=== PATIENT | female | born 1935 | race Caucasian/White ===

== ENCOUNTER → 2016-09-29 | Outpatient (CLI) | payer OTHER ==
--- NOTE | 2016-09-29 16:24 | DX ---
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 Findings: The femoral head and acetabular component remain excellently positioned and normally locate d. The long femoral shaft component remains in excellent position without evidence for loosening. Impression: Stable excellent alignment x2 months.
== END ==
LOC: BMCIMAGING 14:23
PROVIDERS: ATTEND Physician Assistant
DX: Z09 Encounter for follow-up examination after completed treatment for conditions other than malignant neoplasm (principal); Z96.641 Presence of right artificial hip joint

== ENCOUNTER → 2016-10-14 | Outpatient (CLI) | payer OTHER ==
--- NOTE | 2016-10-14 15:45 | US ---
Bilateral Duplex/Doppler Carotid Sonography History: Palpable pulsatile mass in the left neck. Technique: The cervical portions of the carotid and vertebral arteries were imaged and interrogated by color and pulsed Duplex/Doppler. Spectral analysis was performed. Comparison: None available. Findings: The patient's palpable mass corresponds to the proximal left ICA, which is superficial, wi th no visible aneurysm. Right Carotid: Right CCA peak systolic velocity = 48 cm/sec. Right ECA peak systolic velocity = 74 cm/sec. Right ICA peak systolic velocity = 75 cm/sec. Right ICA/CCA systolic velocity ratio = 1.6. Velocities correlate to less than 50 % diameter stenosis of the origin of the right internal carotid artery with respect to the normal distal internal carotid artery. There is minimal calcified plaque involving the right carotid bulb and proximal right internal carotid artery. Left Carotid: Left CCA peak systolic velocity = 61 cm/sec. Left ECA peak systolic velocity = 89 cm/sec. Left ICA peak systolic velocity = 85 cm/sec. Left ICA/CCA systolic velocity ratio = 1.4. Velocities correlate to less than 50 % diameter stenosis of the origin of the left internal carotid a rtery with respect to the normal distal internal carotid artery. There is minimal calcified plaque i nvolving the left carotid bulb and proximal left internal carotid artery. Vertebral Arteries: Antegrade flow is shown by pulsed Doppler of each vertebral artery. Impression: 1. Palpable pulsatile mass corresponds to a normal-appearing superficial internal carotid artery. 2. No hemodynamically significant stenosis by systolic velocity criteria. Measurement of carotid stenosis is based on velocity parameters that correlate the residual internal carotid diameter with [place] Symptomatic Carotid Endarterectomy Trial (NASCET) based stenosis levels.
== END ==
LOC: FIMAGING 12:58
PROVIDERS: ATTEND Family Medicine
DX: R22.1 Localized swelling, mass and lump, neck (principal)

== ENCOUNTER → 2017-01-26 | Outpatient (CLI) | payer OTHER | LOC: BMCIMAGING 14:12 | PROVIDERS: ATTEND Family Medicine | DX: M25.562 Pain in left knee (principal) ==

== ENCOUNTER 2017-03-03 12:38 | Emergency (ER) | payer OTHER ==
[2017-03-03 12:44] VITALS: TEMP 98.1
--- NOTE | 2017-03-03 13:16 | EDPHY ---
H & P Stated Complaint: L sided pain s/p trip & fall Source: Patient, Family Exam Limitations: No limitations - Personal History Current Tetanus/Diphtheria Vaccine: Unsure Current Tetanus Diphtheria and Acellular Pertussis (TDAP): Unsure - Medical/Surgical History Hx Asthma: No Hx Chronic Respiratory Disease: Yes Hx Diabetes: No Hx Cardiac Disease: No Hx Renal Disease: No Hx Cirrhosis: No Hx Alcoholism: No Hx HIV/AIDS: No Hx Splenectomy or Spleen Trauma: No Other PMH: copd, stent, cad, htn, dvt - Social History Smoking Status: Light smoker HPI/ROS: CHIEF COMPLAINT: Fall, left-sided rib pain HISTORY OF PRESENT ILLNESS: Patient was walking last night around 10:00 p.m. when she tripped and fell. She landed on the left side of her ribs on her Oxymizer. She felt a sudden onset of pain in the left mid axillary line of the ribs. She said that she hurt her right ankle but this has resolved. The pain in the ribs is mild to moderate. It is constant. It is worse with inspiration and palpation. No chest pain. No shortness of breath. She has been coughing, but she does have COPD. She uses oxygen at night and intermittently throughout the day. She has no abdominal pain. No injuries to the arms. The right ankle pain is resolved. She has no back pain at any location. REVIEW OF SYSTEMS: Ten systems reviewed and are negative unless otherwise noted in the HPI PAST MEDICAL HISTORY: COPD, CAD with stents, Plavix use SOCIAL HISTORY: Previous smoker FAMILY HISTORY: Noncontributory EXAMINATION General Appearance: Alert, no distress Head: normocephalic, atraumatic. No Barrientos sign. No raccoon eyes. No outward sign of trauma Eyes: Pupils equal and round, no conjunctival pallor or injection ENT, Mouth: Mucous membranes moist. Uvula midline. Airway widely patent. Neck: Normal inspection, supple, no bony tenderness. Mild left-sided trapezius tenderness. Trachea midline. No step-off, crepitus or deformity Respiratory: Mild rhonchi. No crackles. No diminishment. No consolidation. No retractions or distress Cardiovascular: Regular rate and rhythm. Pulses intact distally symmetrically Gastrointestinal: Abdomen is soft and nontender. No distension or tympany. No rigidity. No CVA tenderness. Back: Kyphotic appearance. No bony tenderness of the thoracic or lumbar spine. No step-off, crepitus or deformity Neurological: GCS 15. A&O, nonfocal, normal gait. Strength is symmetric in all 4 limbs. Skin: Warm and dry. Hematoma over the left mid axillary line between ribs 5 through 9. Extremities: Tender to palpation of the left mid axillary ribs. There is no tenderness of the extremities. Range of motion of the arms and legs are symmetric. Psychiatric: Mood and affect normal DIFFERENTIAL DIAGNOSES: Including but not limited to hematoma, rib fracture, hemothorax, pneumothorax, sprain, strain, intracranial hemorrhage, skull fracture, cervical strain MDM: 1:15 p.m. Mechanical fall with left-sided hematoma and rib pain. Due to patient's age and Plavix, I have ordered CT scan 3:15 p.m. I have re-evaluated the patient. She is resting comfortably. CT scans have been performed but not yet interpreted radiologist.. By my interpretation, there are no acute findings on CT scan of the head or chest. Awaiting radiologist's interpretation at this time. 4:10 p.m. Notified by radiologist Dr. Bower. CT scan of the chest reveals nondisplaced acute fractures of ribs 5 and 6 on the left. No pneumothorax. No hemothorax. Incidental note of worsening ground-glass opacity appearance of the bases of bilateral lungs. CT scans of the head and neck reveal no acute findings. There are chronic changes as noted. I discussed all the above with the patient. I made her aware of the change in the ground-glass opacities of the lung. She is aware of the previous incidence of this and will follow up with primary care physician. We discussed pulmonary toilet treated with incentive spirometer, deep breaths hourly, light activity and close follow-up. She is to follow up with primary care physician in 48 hours or here if unable to do so. Return sooner for any fever, difficulty breathing, shortness of breath, cough or worsening pain. I discussed the case with Dr. Ochoa, and she is in agreement with this plan. The patient be discharged home stable condition. SUPERVISION: This patient was independently evaluated without direct examination by the attending physician. Case was discussed with attending physician. Case discussed with Dr. Ochoa (Luis Ho) Constitutional: Initial Vital Signs Temperature (C) 36.7 C 03/03/17 12:41 Heart Rate 88 03/03/17 12:41 Respiratory Rate 16 03/03/17 12:41 Blood Pressure 167/92 H 03/03/17 12:41 O2 Sat (%) 90 L 03/03/17 12:41 O2 Delivery Mode Room Air O2 (L/minute) 2 Allergies/Adverse Reactions: levofloxacin [From Levaquin] Allergy (Unknown, Verified 07/26/13 19:00) Unknown atorvastatin calcium [From Lipitor] Allergy (Verified 01/18/15 14:38) Home Medications: Medication Instructions Recorded Clopidogrel Bisulfate [Plavix (*)] 75 mg PO Q2D 11/28/11 LORazepam [Ativan (*)] 0.5 mg PO HS 03/28/13 Pravastatin Sodium [Pravachol] 40 mg PO HS 06/01/13 Sennosides [Senokot] 2 tab PO Q2D 06/01/13 Tiotropium Inhaler [Spiriva 1 cap IH HS 06/01/13 Inhaler (RX)] Verapamil ER [[place] SR/ER 180MG 180 mg PO HS 06/01/13 (*)] Albuterol [Proventil Inhaler HFA 2 puffs IH TID PRN 01/14/15 (*)] Calcium Carb W/Vit D [Calcium Carb 500 mg PO BID 01/14/15 W/Vit D 500/200 (*)] Fluticasone Nasal [Flonase Nasal 1 sprays EACHNARE DAILY PRN 01/14/15 [place]] Mometasone 220Mcg Inhaler [Asmanex 2 puffs IH BID 01/14/15 Inh (*)] Albuterol 5 mg/ml INH [Proventil] 2.5 mg IH QID PRN 07/06/16 Aspirin [Aspirin 325 mg (*)] 325 mg PO DAILY 07/06/16 Docusate Sodium [Colace 100 MG (*)] 100 mg PO BID 07/06/16 Zolpidem Tartrate [Ambien 10 mg] 5 mg PO HS 07/06/16 Aspirin [Aspirin 325 mg (*)] 325 mg PO DAILY #0 tab 07/07/16 oxyCODONE IR [Oxycodone Ir (*)] 5 - 10 mg PO Q3HRS PRN #70 tab 07/07/16 Hydrocodone/APAP 5/325 [[place] 1 - 2 tab PO Q4H PRN #10 tab 03/03/17 5/325 (*)] Medical Decision Making Other Provider: The patient was evaluated and managed by the physician department assistant. I have reviewed this chart and I agree with the findings and plan of care as documented , as indicated by my signature. I am the secondary supervising physician. ( Gladys Ochoa) - Data Points Laboratory Results: Laboratory Results 03/03/17 14:10 Medications Given: Discontinued Medications Hydrocodone Bitart/Acetaminophen ([place] 5/325) 1 tab PO EDNOW ONE Stop: 03/03/17 16:05 Last Admin: 03/03/17 16:23 Dose: 1 tab Albuterol (Proventil Neb) 3 ml IH EDNOW ONE Stop: 03/03/17 14:55 Last Admin: 03/03/17 14:55 Dose: 3 ml Fentanyl (Sublimaze) 25 mcg IVP EDNOW ONE Stop: 03/03/17 14:22 Last Admin: 03/03/17 14:22 Dose: 25 mcg Sodium Chloride (Ns) 500 mls @ 1,000 mls/hr IV ONCE ONE PRN Reason: Protocol Stop: 03/03/17 14:25 Last Admin: 03/03/17 14:22 Dose: 500 mls Departure - Departure Disposition: Home, Routine, Self-Care Clinical Impression: Left rib fracture, Ground glass opacity present on imaging of lung Condition: Good Instructions: How to Use an Incentive Spirometer (ED), Rib Fracture (ED) Additional Instructions: 1. Follow up with primary care physician in 48 hours. If unable to do so return to the emergency department for re-evaluation 2. Pain medication as prescribed as needed for the left rib pain 3. Continue pulmonary toilet with incentive spirometer at home as discussed every hour 4. Return here for any worsening pain, fever, chills, cough or difficulty taking a deep breath 5. Follow up primary care physician regarding the incidental finding on year CT scan of the chest that we have discussed Referrals: River Lee MD [Primary Care Provider] - As per Instructions Mingo Balderas MD [Medical Doctor] - As per Instructions Prescriptions: Hydrocodone/APAP 5/325 [[place] 5/325 (*)] 1 - 2 tab PO Q4H PRN #10 tab PRN Reason: Pain, Moderate
[2017-03-03] MEDS ORDERED: IOPAMIDOL (ISOVUE-300) 100 ML BTL ONE ×2 (13:20→13:30)
[2017-03-03] MEDS ORDERED: NS 500 ML IV ONE (13:56)
[2017-03-03 14:01] LABS: INR 0.94 (0.83-1.16); PROTIME(PATIENT) 12.5 SEC (12.0-15.0)
[2017-03-03] MEDS ORDERED: fentaNYL 100 MCG/2 ML INJ ONE (14:13)
[2017-03-03] MEDS ORDERED: fentaNYL 100 MCG/2 ML INJ IVP ONE (14:21)
[2017-03-03 14:22] LABS: CK-MB INTERPRETATION NEGATIVE (NEGATIVE); CREATINE KINASE-MB FRACTION 1.32 ng/mL (0-3.19)
[2017-03-03 14:22] LABS: % IMMATURE GRANULYOCYTES 0.5 % (0.0-1.1); ABSOLUTE IMMATURE GRANULOCYTES 0.05 10^3/uL (0.00-0.10); ADD DIFF? NO; ADD MORPH? NO; ADD SCAN? NO; ATYPICAL LYMPHOCYTE FLAG 0 (0-99); FRAGMENT RBC FLAG 0 (0-99); HEMATOCRIT 42.9 % (38.0-47.0); HEMOGLOBIN 14.2 g/dL (12.6-16.3); LEFT SHIFT FLG 0 (0-99); LIPEMIA HEMOLYSIS FLAG 80 (0-99); MEAN CELL HEMOGLOBIN 30.5 pg (27.9-34.1); MEAN CELL HEMOGLOBIN CONCENTR. 33.1 g/dL (32.4-36.7); MEAN CELL VOLUME 92.3 fL (81.5-99.8); MEAN PLATELET VOLUME 10.2 fL (8.7-11.7); PLATELET CLUMPS FLAG 30 (0-99); PLATELET COUNT 257 10^3/uL (150-400); RED BLOOD CELL COUNT 4.65 10^6/uL (4.18-5.33)
[2017-03-03] MEDS ORDERED: ALBUTEROL 3 ML DEYVIAL ONE (14:48)
[2017-03-03] MEDS ORDERED: ALBUTEROL 3 ML DEYVIAL IH ONE (14:54)
[2017-03-03] MEDS ORDERED: HYDROCODONE/APAP 5/325 TAB PO ONE (16:04)
[2017-03-03 16:25] VITALS: BP 173/88; PULSE 85; RESP 16; O2SAT 93
== END 2017-03-03 16:33 | disposition home or self-care (01) ==
DX: S22.42XA Multiple fractures of ribs, left side, initial encounter for closed fracture (principal); I10 Essential (primary) hypertension; J44.9 Chronic obstructive pulmonary disease, unspecified; I25.10 Atherosclerotic heart disease of native coronary artery without angina pectoris; F17.200 Nicotine dependence, unspecified, uncomplicated; R91.8 Other nonspecific abnormal finding of lung field; Z95.5 Presence of coronary angioplasty implant and graft; Z79.82 Long term (current) use of aspirin; W01.0XXA Fall on same level from slipping, tripping and stumbling without subsequent striking against object, initial encounter
CPT/HCPCS: 70450; 71260; 72125; 96361; 96374; 99285; J3010; Q9967; 82947-QW

== ENCOUNTER 2017-04-06 17:20 | Emergency (ER) | payer OTHER ==
[2017-04-06 17:38] VITALS: TEMP 98.6
[2017-04-06] MEDS ORDERED: IPRATROPIUM/ALBUTEROL 3 ML DEYVIAL IH ONE ×2 (17:47→17:49)
--- NOTE | 2017-04-06 18:00 | EDPHY ---
H & P Stated Complaint: DIFFICULTY BREATHING Time Seen by Provider: 04/06/17 18:00 - Personal History Current Tetanus/Diphtheria Vaccine: Unsure - Medical/Surgical History Hx Asthma: No Hx Chronic Respiratory Disease: Yes Hx Diabetes: No Hx Cardiac Disease: No Hx Renal Disease: No Hx Cirrhosis: No Hx Alcoholism: No Hx HIV/AIDS: No Hx Splenectomy or Spleen Trauma: No Other PMH: copd, stent, cad, htn, dvt - Social History Smoking Status: Light smoker Constitutional: Initial Vital Signs Temperature (C) 37 C 04/06/17 17:35 Heart Rate 89 04/06/17 17:35 Respiratory Rate 20 04/06/17 17:35 Blood Pressure 184/94 H 04/06/17 17:35 O2 Sat (%) 87 L 04/06/17 17:35 O2 Delivery Mode Room Air Allergies/Adverse Reactions: levofloxacin [From Levaquin] Allergy (Unknown, Verified 04/06/17 17:39) Unknown atorvastatin calcium [From Lipitor] Allergy (Verified 04/06/17 17:39) Home Medications: Medication Instructions Recorded Clopidogrel Bisulfate [Plavix (*)] 75 mg PO Q2D 11/28/11 LORazepam [Ativan (*)] 0.5 mg PO HS 03/28/13 Pravastatin Sodium [Pravachol] 40 mg PO HS 06/01/13 Sennosides [Senokot] 2 tab PO Q2D 06/01/13 Tiotropium Inhaler [Spiriva 1 cap IH 06/01/13 Inhaler (RX)] Verapamil ER [[place] SR/ER 180MG 180 mg PO HS 06/01/13 (*)] Albuterol [Proventil Inhaler HFA 2 puffs IH TID PRN 01/14/15 (*)] Calcium Carb W/Vit D [Calcium Carb 500 mg PO BID 01/14/15 W/Vit D 500/200 (*)] Fluticasone Nasal [Flonase Nasal 1 sprays [place] DAILY PRN 01/14/15 [place]] Mometasone 220Mcg Inhaler [Asmanex 2 puffs IH BID 01/14/15 Inh (*)] Albuterol 5 mg/ml INH [Proventil] 2.5 mg IH QID PRN 07/06/16 Aspirin [Aspirin 325 mg (*)] 325 mg PO DAILY 07/06/16 Docusate Sodium [Colace 100 MG (*)] 100 mg PO BID 07/06/16 Zolpidem Tartrate [Ambien 10 mg] 5 mg PO HS 07/06/16 Aspirin [Aspirin 325 mg (*)] 325 mg PO DAILY #0 tab 07/07/16 oxyCODONE IR [Oxycodone Ir (*)] 5 - 10 mg PO Q3HRS PRN #70 tab 07/07/16 Hydrocodone/APAP 5/325 [[place] 1 - 2 tab PO Q4H PRN #10 tab 03/03/17 5/325 (*)] AZITHROMYCIN [Z-PACK] 250 mg PO DAILY #1 packet 04/06/17 Medical Decision Making - Diagnostics Imaging Results: Imaging Impressions Chest X-Ray 04/06/17 17:50 Impression: 1. Mild peribronchial cuffing in the perihilar region bilaterally similar to prior CT study. This can be seen with bronchitis, viral process, or reactive airways disease. 2. Ankylosis thoracic spine. Imaging: I viewed and interpreted images myself ED Course/Re-evaluation: CHIEF COMPLAINT: Shortness of breath HISTORY OF PRESENT ILLNESS: The patient is an 81 y/o female with history of COPD, who presents with worsening shortness of breath for the past 3 weeks. She was in the ED on 03/03/17 for a fall, and was diagnosed with several left rib fractures. She feels congested in her lungs and has a cough that does not improve with a nebulizer treatment. She normally only uses oxygen at night, but required it recently during the day. She has noticed mild pedal edema, which is abnormal for her. Denies chest pain, vomiting, abdominal pain, and paresthesias. REVIEW OF SYSTEMS: A 10 point review of systems was performed and is negative with the exception of the elements mentioned in the history of present illness. PHYSICAL EXAM: HR, BP hypertensive 184/94, O2 Sat 87% on room air, RR. Temp noted General Appearance: Alert, well hydrated, appropriate, and non-toxic appearing. Head: Atraumatic without scalp tenderness or obvious injury Eyes: Pupils equal, round, reactive to light and accommodation, EOMI, no trauma , no injection. Ears: Clear bilaterally, no perforation, normal landmarks Nose: Atraumatic, no rhinorrhea, clear. Throat: Mucus membranes moist. Neck: Supple, nontender, no lymphadenopathy. Respiratory: Coarse rhonchi, decreased breath sounds in the left base, shallow breathing. No retractions, no distress, no wheezes, and no accessory muscle use. Cardiovascular: Regular rate and rhythm, no murmurs, rubs, or gallops. Good capillary refill all extremities. Gastrointestinal: Abdomen is soft, nontender, non-distended, no masses, no rebound, no guarding, no peritoneal signs. Musculoskeletal: Normal active ROM of all extremities, atraumatic. Neurological: Alert, appropriate, and interactive. Non-focal neuro Skin: Mild cellulitis on right lower leg and mild bilateral pedal edema. Good turgor, no nodules on palpation. Past medical history: COPD, CAD, Plavix use Past surgical history: Cardiac stents Family history: Noncontributory Social history: Previous smoker, lives in [place], retired Reviewed prior ED report from 03/03/17 DIAGNOSTICS/PROCEDURES/CRITICAL CARE TIME: EKG: The 12 lead EKG was interpreted by myself, sinus rhythm with a LVH, rate 84. See hard copy and/or "tracemaster" electronic copy for interpretation. Chest X-ray: COPD changes DIFFERENTIAL DIAGNOSIS: The differential diagnosis for the patient's shortness of breath and hypoxemia included but was not limited to pneumonia, myocardial infarction, acute mountain sickness, high altitude pulmonary edema, congestive heart failure, and pulmonary embolus. MEDICAL DECISION MAKING: The patient is an 81 y/o female who presents with dyspnea following a fall three weeks ago. She has coarse rhonchi and decreased breath sounds in the left base. She also has mild cellulites on her right lower leg and mild bilateral pedal edema. Plan for EKG, chest X-ray, and labs to rule out pneumonia. Duo neb administered. Reassessed patient and discussed work up findings. Chest x-ray consistent with COPD. Plan to treat with z-pack and 10mg IV Decadron. Recommended follow up with her tare worker tomorrow. Return precautions given. She is comfortable with this plan. - Data Points Laboratory Results: Laboratory Results 04/06/17 18:00 04/06/17 18:00 04/06/17 04/06/17 04/06/17 18:00 18:00 18:00 WBC RBC Hgb Hct MCV MCH MCHC RDW Plt Count MPV Neut % (Auto) Lymph % (Auto) [place] % (Auto) Eos % (Auto) Baso % (Auto) Nucleat RBC Rel Count Absolute Neuts (auto) Absolute Lymphs (auto) Absolute Monos (auto) Absolute Eos (auto) Absolute Basos (auto) Absolute Nucleated RBC Immature Gran % Immature Gran # PT 12.8 SEC SEC (12.0-15.0) INR 0.97 (0.83-1.16) APTT 23.4 SEC SEC (23.0-38.0) VBG Lactic Acid 1.3 mmol/L mmol/L (0.7-2.1) Sodium 142 mEq/L mEq/L (134-144) Potassium 4.7 mEq/L mEq/L (3.5-5.2) Chloride 106 mEq/L mEq/L (97-110) Carbon Dioxide 26 mEq/l mEq/l (22-31) Anion Gap 10 mEq/L mEq/L (8-16) BUN 8 mg/dL mg/dL (7-23) Creatinine 0.6 mg/dL mg/dL (0.6-1.0) Estimated GFR > 60 Glucose 86 mg/dL mg/dL (70-100) Calcium 9.7 mg/dL mg/dL (8.5-10.4) Total Bilirubin 0.4 mg/dL mg/dL (0.1-1.4) Troponin I < 0.012 ng/mL ng/mL (0-0.034) NT-Pro-B Natriuret Pep 168 pg/mL pg/mL (0-450) 04/06/17 18:00 WBC 8.34 10^3/uL 10^3/uL (3.80-9.50) RBC 4.56 10^6/uL 10^6/uL (4.18-5.33) Hgb 13.8 g/dL g/dL (12.6-16.3) Hct 42.7 % % (38.0-47.0) MCV 93.6 fL fL (81.5-99.8) MCH 30.3 pg pg (27.9-34.1) MCHC 32.3 g/dL L g/dL (32.4-36.7) RDW 13.6 % % (11.5-15.2) Plt Count 249 10^3/uL 10^3/uL (150-400) MPV 9.9 fL fL (8.7-11.7) Neut % (Auto) 53.5 % % (39.3-74.2) Lymph % (Auto) 29.1 % % (15.0-45.0) [place] % (Auto) 7.6 % % (4.5-13.0) Eos % (Auto) 8.4 % H % (0.6-7.6) Baso % (Auto) 1.3 % % (0.3-1.7) Nucleat RBC Rel Count 0.0 % % (0.0-0.2) Absolute Neuts (auto) 4.46 10^3/uL 10^3/uL (1.70-6.50) Absolute Lymphs (auto) 2.43 10^3/uL 10^3/uL (1.00-3.00) Absolute Monos (auto) 0.63 10^3/uL 10^3/uL (0.30-0.80) Absolute Eos (auto) 0.70 10^3/uL H 10^3/uL (0.03-0.40) Absolute Basos (auto) 0.11 10^3/uL H 10^3/uL (0.02-0.10) Absolute Nucleated RBC 0.00 10^3/uL 10^3/uL (0-0.01) Immature Gran % 0.1 % % (0.0-1.1) Immature Gran # 0.01 10^3/uL 10^3/uL (0.00-0.10) PT INR APTT VBG Lactic Acid Sodium Potassium Chloride Carbon Dioxide Anion Gap BUN Creatinine Estimated GFR Glucose Calcium Total Bilirubin Troponin I NT-Pro-B Natriuret Pep Medications Given: Discontinued Medications Albuterol/Ipratropium (Duoneb) 3 ml IH EDNOW ONE Stop: 04/06/17 17:48 Last Admin: 04/06/17 17:53 Dose: 3 ml Albuterol/Ipratropium (Duoneb) 3 ml IH EDNOW ONE Stop: 04/06/17 17:50 Last Admin: 04/06/17 17:53 Dose: Not Given Azithromycin (Zithromax) 500 mg PO EDNOW ONE PRN Reason: Protocol Stop: 04/06/17 19:21 Last Admin: 04/06/17 19:32 Dose: 500 mg Dexamethasone (Decadron Injection) 10 mg IVP EDNOW ONE Stop: 04/06/17 19:21 Last Admin: 04/06/17 19:32 Dose: 10 mg Departure - Departure Clinical Impression: COPD exacerbation Instructions: COPD (Chronic Obstructive Pulmonary Disease) (ED) Additional Instructions: 1. Take Z-pack as prescribed. Be sure to complete entire prescription. 2. Follow up with your tare worker tomorrow without fail. 3. Return for any worsening of condition. Referrals: River Lee MD [Primary Care Provider] - As per Instructions Prescriptions: AZITHROMYCIN [Z-PACK] 250 mg PO DAILY #1 packet Report Scribed for: Aaron Jauregui Report Scribed by: Zaida Morales Date of Report: 04/06/17 Time of Report: 18:02
[2017-04-06 18:08] LABS: % IMMATURE GRANULYOCYTES 0.1 % (0.0-1.1); ABSOLUTE IMMATURE GRANULOCYTES 0.01 10^3/uL (0.00-0.10); ADD DIFF? NO; ADD MORPH? NO; ADD SCAN? NO; ATYPICAL LYMPHOCYTE FLAG 0 (0-99); FRAGMENT RBC FLAG 0 (0-99); HEMATOCRIT 42.7 % (38.0-47.0); HEMOGLOBIN 13.8 g/dL (12.6-16.3); LEFT SHIFT FLG 0 (0-99); LIPEMIA HEMOLYSIS FLAG 80 (0-99); MEAN CELL HEMOGLOBIN 30.3 pg (27.9-34.1); MEAN CELL HEMOGLOBIN CONCENTR. 32.3 g/dL (32.4-36.7); MEAN CELL VOLUME 93.6 fL (81.5-99.8); MEAN PLATELET VOLUME 9.9 fL (8.7-11.7); PLATELET CLUMPS FLAG 0 (0-99); PLATELET COUNT 249 10^3/uL (150-400); RED BLOOD CELL COUNT 4.56 10^6/uL (4.18-5.33); RED CELL DISTRIBUTION WIDTH 13.6 % (11.5-15.2)
--- NOTE | 2017-04-06 18:08 | CPEKG ---
Heart Rate: 84 RR Interval: 714 P-R Interval: 148 QRSD Interval: 74 QT Interval: 384 QTC Interval: 454 P Waldo: 60 QRS Waldo: 24 T Wave Waldo: 59 EKG Severity - ABNORMAL ECG - EKG Impression: SINUS RHYTHM EKG Impression: CONSIDER LEFT VENTRICULAR HYPERTROPHY Electronically Signed By: Aaron Jauregui 06-Apr-2017 20:59:28
[2017-04-06 18:31] LABS: APTT 23.4 SEC (23.0-38.0); INR 0.97 (0.83-1.16); PROTIME(PATIENT) 12.8 SEC (12.0-15.0)
[2017-04-06 18:37] LABS: ANION GAP 10 mEq/L (8-16); BILIRUBIN,TOTAL 0.4 mg/dL (0.1-1.4); CALCIUM 9.7 mg/dL (8.5-10.4); CARBON DIOXIDE 26 mEq/l (22-31); CHLORIDE 106 mEq/L (97-110); CREATININE 0.6 mg/dL (0.6-1.0); GLOMERULAR FILTRATION RATE > 60; GLUCOSE 86 mg/dL (70-100); POTASSIUM 4.7 mEq/L (3.5-5.2); SODIUM 142 mEq/L (134-144)
[2017-04-06 19:20] LABS: TROPONIN I < 0.012 ng/mL (0-0.034)
[2017-04-06] MEDS ORDERED: AZITHROMYCIN 250 MG TAB PO ONE (19:20)
[2017-04-06] MEDS ORDERED: DEXAMETHASONE 10 MG/ML VIAL IVP ONE (19:20)
[2017-04-06 19:44] VITALS: BP 170/76; PULSE 94; RESP 18; O2SAT 92
== END 2017-04-06 19:43 | disposition home or self-care (01) ==
DX: J44.1 Chronic obstructive pulmonary disease with (acute) exacerbation (principal); I10 Essential (primary) hypertension; I25.10 Atherosclerotic heart disease of native coronary artery without angina pectoris; F17.200 Nicotine dependence, unspecified, uncomplicated; Z79.82 Long term (current) use of aspirin
CPT/HCPCS: 71020; 93005; 96374; 99285; J1100

== ENCOUNTER 2017-06-07 16:02 | Inpatient (IN) | payer OTHER ==
--- NOTE | 2017-06-07 16:22 | EDPHY ---
H & P Stated Complaint: sob worse x 4 days, L leg swelling x 2 weeks HPI/ROS: HPI CHIEF COMPLAINT: Shortness of breath HISTORY OF PRESENT ILLNESS: This patient very pleasant 81-year-old female significant past medical history for COPD on oxygen at night 2 L. None during the day. History of tobacco use and currently uses half pack per day. Patient presents to the emergency room the worsening shortness of breath. She states approximately 2-3 months ago she broke her ribs. She since ever since then she has had worsening shortness of breath. However patient reports that over the past week shortness of breath progressively gotten worse. She has PND. Additionally using 2 more pillows to sit upright to sleep at night. Additionally dyspnea on exertion. She states that when she walks she gets short of breath very easily. Get her breath. Cough with clear sputum. Endorses chills. Subjective fever. Denies nausea vomiting or chest pain. Denies abdominal pain. Additionally she reports bilateral lower extremity swelling. When the left than right. Her left leg is never this swollen. It is tender and has significant edema. She has had a history of DVT. Past Medical History: COPD, history of coronary artery disease with stent, hypertension, remote history community-acquired pneumonia, DVT Past Surgical History: No recent surgery Social History: Denies daily use of alcohol drugs. Smokes tobacco daily. Half pack per day. Family History: Noncontributory. ROS REVIEW OF SYSTEMS: A comprehensive 10 point review of systems is otherwise negative aside from elements mentioned in the history of present illness. Exam Constitutional appears nontoxic, triage nursing summary reviewed, vital signs reviewed, awake/alert. Vital signs noted 87% room air sat. Eyes normal conjunctivae and sclera, EOMI, PERRLA. HENT normal inspection, atraumatic, moist mucus membranes, no epistaxis, neck supple/ no meningismus, no raccoon eyes. Respiratory the decreased breath sounds bilaterally, crackles bilaterally, faint wheezing bilaterally, Cardiovascular rate normal, regular rhythm, no murmur, no edema, distal pulses normal. Gastrointestinal soft, non-tender, no rebound, no guarding, normal bowel sounds, no distension, no pulsatile mass. Genitourinary no CVA tenderness. Musculoskeletal no midline vertebral tenderness, full range of motion, no calf swelling, no tenderness of extremities, no meningismus, good pulses, neurovascularly intact. Skin pink, warm, & dry, no rash, skin atraumatic. Neurologic awake, alert and oriented x 3, AAOx3, moves all 4 extremities equally, motor intact, sensory intact, CN II-XII intact, normal cerebellar, normal vision, normal speech. Psychiatric normal mood/affect. Heme/Lymph/Immune no lymphadenopathy. Differential Diagnosis: Includes but is not limited to in a particular order CHF, acute decompensated heart failure, COPD exacerbation, pneumonia, pulmonary embolism, DVT, failure, renal failure Medical Decision Making: Plan for this patient IV established full industrial court magistrate, check troponin, BNP, EKG, chest x-ray, D-dimer, ultrasound left lower extremity, DuoNeb breathing treatment re-evaluation Re-evaluation: ED x-ray chest one view reviewed. This shows haziness bilateral lower lobes, additionally there is opacification of the left lower lobe that appears to be wedged shaped. 1733: This patient has a positive D-dimer. In the setting of shortness of breath and hypoxia and lower extremity swelling I will proceed with CT angiogram PE protocol study to evaluate for PE. Additionally this will help visualize her lung parenchyma. ED ultrasound of the left lower extremity shows a posterior tibial DVT. Similar to the ultrasound in 2014. No proximal DVT. 1849: This patient will be admitted for hypoxia, dyspnea on exertion, dyspnea, mucous plugging. Most likely COPD exacerbation. This patient has been given a DuoNeb breathing treatment, IV Solu-Medrol. Spoke with the hospitalist service Dr. Bryson for admission. Source: Patient - Personal History Current Tetanus/Diphtheria Vaccine: Unsure Current Tetanus Diphtheria and Acellular Pertussis (TDAP): Unsure - Medical/Surgical History Hx Asthma: No Hx Chronic Respiratory Disease: Yes Hx Diabetes: No Hx Cardiac Disease: No Hx Renal Disease: No Hx Cirrhosis: No Hx Alcoholism: No Hx HIV/AIDS: No Hx Splenectomy or Spleen Trauma: No Other PMH: copd, stent, cad, htn, dvt - Social History Smoking Status: Light smoker Constitutional: Initial Vital Signs Temperature (C) 37.0 C 06/07/17 16:09 Heart Rate 99 06/07/17 16:09 Respiratory Rate 20 06/07/17 16:09 Blood Pressure 184/87 H 06/07/17 16:09 O2 Sat (%) 87 L 06/07/17 16:09 O2 Delivery Mode Nasal Cannula O2 (L/minute) 2 Allergies/Adverse Reactions: levofloxacin [From Levaquin] Allergy (Unknown, Verified 04/06/17 17:39) Unknown atorvastatin calcium [From Lipitor] Allergy (Verified 04/06/17 17:39) Home Medications: Medication Instructions Recorded Clopidogrel Bisulfate [Plavix (*)] 75 mg PO Q2D 11/28/11 LORazepam [Ativan (*)] 0.5 mg PO HS 03/28/13 Pravastatin Sodium [Pravachol] 40 mg PO HS 06/01/13 Sennosides [Senokot] 2 tab PO Q2D 06/01/13 Tiotropium Inhaler [Spiriva 1 cap IH HS 06/01/13 Inhaler (RX)] Verapamil ER [[place]an SR/ER 180MG 180 mg PO HS 06/01/13 (*)] Albuterol [Proventil Inhaler HFA 2 puffs IH TID PRN 01/14/15 (*)] Calcium Carb W/Vit D [Calcium Carb 500 mg PO BID 01/14/15 W/Vit D 500/200 (*)] Fluticasone Nasal [Flonase Nasal 1 sprays EACHNARE DAILY PRN 01/14/15 [place]] Mometasone 220Mcg Inhaler [Asmanex 2 puffs IH BID 01/14/15 Inh (*)] Albuterol 5 mg/ml INH [Proventil] 2.5 mg IH QID PRN 07/06/16 Aspirin [Aspirin 325 mg (*)] 325 mg PO DAILY 07/06/16 Docusate Sodium [Colace 100 MG (*)] 100 mg PO BID 07/06/16 Zolpidem Tartrate [Ambien 10 mg] 5 mg PO HS 07/06/16 Aspirin [Aspirin 325 mg (*)] 325 mg PO DAILY #0 tab 07/07/16 oxyCODONE IR [Oxycodone Ir (*)] 5 - 10 mg PO Q3HRS PRN #70 tab 07/07/16 Hydrocodone/APAP 5/325 [[place] 1 - 2 tab PO Q4H PRN #10 tab 03/03/17 5/325 (*)] AZITHROMYCIN [Z-PACK] 250 mg PO DAILY #1 packet 04/06/17 Medical Decision Making - Diagnostics Imaging Results: Imaging Impressions Chest X-Ray 06/07/17 16:36 Impression: 1. No acute change since 3 months prior. 2. Cardiomegaly and airways disease unchanged. Extremity Venous Study 06/07/17 16:37 Impression: Partial thrombus posterior tibial veins in the calf. No other findings more proximal for deep venous thrombosis. Stable benign-appearing lymph node left groin. Results called and discussed with Dr. Alexander Hernandez on June 07, 2017 at 17: 45 hours Chest/Thorax CTA 06/07/17 17:33 Impression: 1. No evidence of pulmonary thromboembolic disease. 2. Bibasilar segmental mucous plugging. No pneumonia or significant atelectasis. 3. Indeterminate ground-glass nodules in bilateral lower lobes, potentially representing early bronchoalveolar carcinoma, are unchanged. Recommend continued surveillance with follow-up noncontrast chest CT in 12 months. 4. Centrilobular emphysema and ankylosing spondylitis unchanged. Findings discussed with Emergency Department physician, Alexander Hernandez M.D., on June 07, 2017 at 1827. - Data Points Laboratory Results: Laboratory Results 06/07/17 16:50 06/07/17 16:50 06/07/17 06/07/17 06/07/17 16:50 16:50 16:50 WBC 8.25 10^3/uL 10^3/uL (3.80-9.50) RBC 4.74 10^6/uL 10^6/uL (4.18-5.33) Hgb 14.3 g/dL g/dL (12.6-16.3) Hct 43.8 % % (38.0-47.0) MCV 92.4 fL fL (81.5-99.8) MCH 30.2 pg pg (27.9-34.1) MCHC 32.6 g/dL g/dL (32.4-36.7) RDW 13.6 % % (11.5-15.2) Plt Count 251 10^3/uL 10^3/uL (150-400) MPV 10.3 fL fL (8.7-11.7) Neut % (Auto) 60.5 % % (39.3-74.2) Lymph % (Auto) 24.6 % % (15.0-45.0) [place] % (Auto) 7.2 % % (4.5-13.0) Eos % (Auto) 6.3 % % (0.6-7.6) Baso % (Auto) 1.2 % % (0.3-1.7) Nucleat RBC Rel Count 0.0 % % (0.0-0.2) Absolute Neuts (auto) 4.99 10^3/uL 10^3/uL (1.70-6.50) Absolute Lymphs (auto) 2.03 10^3/uL 10^3/uL (1.00-3.00) Absolute Monos (auto) 0.59 10^3/uL 10^3/uL (0.30-0.80) Absolute Eos (auto) 0.52 10^3/uL H 10^3/uL (0.03-0.40) Absolute Basos (auto) 0.10 10^3/uL 10^3/uL (0.02-0.10) Absolute Nucleated RBC 0.00 10^3/uL 10^3/uL (0-0.01) Immature Gran % 0.2 % % (0.0-1.1) Immature Gran # 0.02 10^3/uL 10^3/uL (0.00-0.10) PT 12.5 SEC SEC (12.0-15.0) INR 0.94 (0.83-1.16) APTT 25.5 SEC SEC (23.0-38.0) D-Dimer 1.16 ug/mLFEU H ug/mLFEU (0.00-0.50) Sodium 139 mEq/L mEq/L (134-144) Potassium 4.1 mEq/L mEq/L (3.5-5.2) Chloride 103 mEq/L mEq/L (97-110) Carbon Dioxide 25 mEq/l mEq/l (22-31) Anion Gap 11 mEq/L mEq/L (8-16) BUN 10 mg/dL mg/dL (7-23) Creatinine 0.6 mg/dL mg/dL (0.6-1.0) Estimated GFR > 60 Glucose 95 mg/dL mg/dL (70-100) Calcium 9.4 mg/dL mg/dL (8.5-10.4) Magnesium 2.0 mg/dL mg/dL (1.6-2.3) Total Bilirubin 0.4 mg/dL mg/dL (0.1-1.4) Conjugated Bilirubin 0.3 mg/dL mg/dL (0.0-0.5) Unconjugated Bilirubin 0.1 mg/dL mg/dL (0.0-1.1) AST 19 IU/L IU/L (14-46) ALT 31 IU/L IU/L (9-52) Alkaline Phosphatase 87 IU/L IU/L (38-126) Creatine Kinase 99 IU/L IU/L (0-156) CK-MB (CK-2) Fraction 1.71 ng/mL ng/mL (0.00-3.19) Troponin I < 0.012 ng/mL ng/mL (0.000-0.034) NT-Pro-B Natriuret Pep 247 pg/mL pg/mL (0-450) Total Protein 6.5 g/dL g/dL (6.3-8.2) Albumin 4.0 g/dL g/dL (3.5-5.0) Lipase 40 IU/L IU/L (23-300) Medications Given: Discontinued Medications Albuterol/Ipratropium (Duoneb) 3 ml IH EDNOW ONE Stop: 06/07/17 16:41 Last Admin: 06/07/17 17:28 Dose: 3 ml Sodium Chloride (Ns) 500 mls @ 0 mls/hr IV ONCE ONE PRN Reason: Wide Open Stop: 06/07/17 17:35 Last Admin: 06/07/17 17:43 Dose: 500 mls Departure - Departure Disposition: [facility] Inpatient Acute Clinical Impression: Hypoxia COPD (chronic obstructive pulmonary disease) Qualifiers: COPD type: unspecified COPD Qualified Code(s): J44.9 - Chronic obstructive pulmonary disease, unspecified Pneumonia Qualifiers: Pneumonia type: due to unspecified organism Laterality: unspecified laterality Lung location: lower lobe of lung Qualified Code(s): J18.1 - Lobar pneumonia, unspecified organism DVT (deep venous thrombosis) Qualifiers: DVT location: lower extremity Affected thrombotic vein of extremity: unspecified lower extremity distal vein Chronicity: acute Laterality: left Qualified Code(s): I82.4Z2 - Acute embolism and thrombosis of unspecified deep veins of left distal lower extremity Condition: Fair Referrals: River Lee MD [Primary Care Provider] - As per Instructions
[2017-06-07] MEDS ORDERED: IPRATROPIUM/ALBUTEROL 3 ML DEYVIAL IH ONE (16:40)
--- NOTE | 2017-06-07 16:46 | CPEKG ---
Heart Rate: 87 RR Interval: 690 P-R Interval: 148 QRSD Interval: 68 QT Interval: 392 QTC Interval: 472 P [place]: 69 QRS [place]: 32 T Wave [place]: 70 EKG Severity - ABNORMAL ECG - EKG Impression: SINUS RHYTHM EKG Impression: CONSIDER LEFT VENTRICULAR HYPERTROPHY Electronically Signed By: Jailene Chew 07-Jun-2017 19:42:31
[2017-06-07 16:58] LABS: % IMMATURE GRANULYOCYTES 0.2 % (0.0-1.1); ABSOLUTE IMMATURE GRANULOCYTES 0.02 10^3/uL (0.00-0.10); ADD DIFF? NO; ADD MORPH? NO; ADD SCAN? NO; ATYPICAL LYMPHOCYTE FLAG 0 (0-99); FRAGMENT RBC FLAG 0 (0-99); HEMATOCRIT 43.8 % (38.0-47.0); HEMOGLOBIN 14.3 g/dL (12.6-16.3); LEFT SHIFT FLG 0 (0-99); LIPEMIA HEMOLYSIS FLAG 80 (0-99); MEAN CELL HEMOGLOBIN 30.2 pg (27.9-34.1); MEAN CELL HEMOGLOBIN CONCENTR. 32.6 g/dL (32.4-36.7); MEAN CELL VOLUME 92.4 fL (81.5-99.8); MEAN PLATELET VOLUME 10.3 fL (8.7-11.7); PLATELET CLUMPS FLAG 0 (0-99); PLATELET COUNT 251 10^3/uL (150-400); RED BLOOD CELL COUNT 4.74 10^6/uL (4.18-5.33); RED CELL DISTRIBUTION WIDTH 13.6 % (11.5-15.2)
[2017-06-07 17:10] LABS: INR 0.94 (0.83-1.16); PROTIME(PATIENT) 12.5 SEC (12.0-15.0)
[2017-06-07 17:11] LABS: APTT 25.5 SEC (23.0-38.0)
[2017-06-07 17:14] LABS: ALANINE AMINOTRANSFERASE 31 IU/L (9-52); ALKALINE PHOSPHATASE 87 IU/L (38-126); ANION GAP 11 mEq/L (8-16); ASPARTATE AMINOTRANSFERASE 19 IU/L (14-46); BILIRUBIN,TOTAL 0.4 mg/dL (0.1-1.4); BILIRUBIN-CONJUGATED 0.3 mg/dL (0.0-0.5); BILIRUBIN-UNCONJUGATED 0.1 mg/dL (0.0-1.1); CALCIUM 9.4 mg/dL (8.5-10.4); CARBON DIOXIDE 25 mEq/l (22-31); CHLORIDE 103 mEq/L (97-110); CREATININE 0.6 mg/dL (0.6-1.0); GLOMERULAR FILTRATION RATE > 60; GLUCOSE 95 mg/dL (70-100); POTASSIUM 4.1 mEq/L (3.5-5.2); SODIUM 139 mEq/L (134-144); TOTAL PROTEIN 6.5 g/dL (6.3-8.2)
[2017-06-07 17:26] LABS: CREATINE KINASE-MB FRACTION 1.71 ng/mL (0.00-3.19); TROPONIN I < 0.012 ng/mL (0.000-0.034)
[2017-06-07] MEDS ORDERED: NS 500 ML IV ONE (17:34)
[2017-06-07] MEDS ORDERED: IOPAMIDOL (ISOVUE 370) 100 ML BTL IV ONE (17:49)
[2017-06-07] MEDS ORDERED: methylPREDNISolone SOD SUCC 125 MG/2 ML VIAL IVP ONE (18:48)
[2017-06-07] MEDS ORDERED: NICOTINE POLACRILEX 2 MG GUM B PRN (18:56)
[2017-06-07] MEDS ORDERED: ONDANSETRON 4 MG/2 ML VIAL IVP PRN (18:56)
[2017-06-07] MEDS ORDERED: ONDANSETRON DISINTEGRATING 4 MG TAB PO PRN (18:56)
[2017-06-07] MEDS ORDERED: SENNOSIDES 1 TAB PO PRN (21:18)
[2017-06-07] MEDS ORDERED: FLUTICASONE NASAL 120 SPRAYS/16 GM MDI EACHNARE PRN (21:18)
[2017-06-07] MEDS ORDERED: LORazepam 0.5 MG TAB PO PRN (21:18)
[2017-06-07] MEDS ORDERED: DOCUSATE SODIUM 100 MG CAP PO PRN (21:18)
--- NOTE | 2017-06-07 21:25 | PDGENHP ---
History and Physical - Chief Complaint Acute shortness of breath - History of Present Illness Primary care provider: Dr. River Lee HPI: 81-year-old female presenting with acute shortness of breath characterized as difficulty taking a deep breath with associated paroxysmal nocturnal dyspnea lower extremity edema, onset of symptoms several days prior and duration progressively worsening thereafter. She reports that the shortness of breath is alleviated when she is sitting upright, and is exacerbated when she is ambulating. She has otherwise been using her home albuterol inhaler very regularly, and is compliant with her Spiriva and inhaled steroid. She has otherwise been taking all of her home medications and denies any fever chills nausea vomiting or diarrhea. She does endorse some associated sore throat but this has been relatively mild. History Information - Allergies/Home Medication List Allergies/Adverse Reactions: levofloxacin [From Levaquin] Allergy (Unknown, Verified 04/06/17 17:39) Unknown atorvastatin calcium [From Lipitor] Allergy (Verified 04/06/17 17:39) Home Medications: Clopidogrel Bisulfate [Plavix (*)] 75 mg PO Q2D@2200 11/28/11 [Last Taken 22:00] LORazepam [Ativan (*)] 0.5 mg PO HS PRN 03/28/13 [Last Taken 05/08/17] Pravastatin Sodium [Pravachol] 40 mg PO 06/01/13 [Last Taken 06/06/17 22:00] Sennosides [Senokot] 2 tab PO Q2D PRN 06/01/13 [Last Taken 06/03/17] Tiotropium Inhaler [Spiriva Inhaler (RX)] 1 cap IH 06/01/13 [Last Taken 05/17 22:00] Verapamil ER [Calan SR/ER 180MG (*)] 180 mg PO 06/01/13 [Last Taken 06/06/17 22:00] Albuterol [Proventil Inhaler HFA (*)] 2 puffs IH TID PRN 01/14/15 [Last Taken 10:00] Fluticasone Nasal [Flonase Nasal [place]] 1 sprays EACHNARE DAILY PRN 01/14/15 [ Last Taken 06/04/17] Mometasone 220Mcg Inhaler [Asmanex Inh (*)] 2 puffs IH BID 01/14/15 [Last Taken 05/31/17] Albuterol 5 mg/ml INH [Proventil] 2.5 mg IH QID PRN 07/06/16 [Last Taken 14:00] Aspirin [Aspirin 325 mg (*)] 325 mg PO DAILY PRN 07/06/16 [Last Taken 07/05/16] Docusate Sodium [Colace 100 MG (*)] 100 mg PO DAILY PRN 07/06/16 [Last Taken ] oxyCODONE HCL/ACETAMINOPHEN [Percocet 5-325 mg Tablet] 1 each PO HS 06/07/17 [ Last Taken 06/06/17 22:00] I have personally reviewed and updated: family history, medical history, social history, surgical history - Past Medical History Additional medical history: Coronary artery disease with stent placement. Deep venous thrombosis. COPD. Hypertension. Congestive heart failure. Nocturnal supplemental oxygen - Surgical History Additional surgical history: Cardiac stent. Appendectomy - Family History Additional family history: No history of venous thromboembolism, no family history of chronic diseases - Social History Smoking Status: Light smoker Alcohol Use: None Drug Use: None Additional social history: Lives with son, originally from [facility] Review of Systems Review of Systems: ROS: 10pt was reviewed & negative except for what was stated in HPI & below Cardiac: Reports: edema Respiratory: Reports: cough, shortness of breath Physical Exam Physical Exam: Temp Pulse Resp BP Pulse Ox 36.4 C 95 20 158/89 H 94 06/07/17 20:35 06/07/17 20:35 06/07/17 20:35 06/07/17 20:35 06/07/17 20:35 O2 (L/minute) 2 Constitutional: no apparent distress, not in pain, chronically ill appearing, No uncomfortable Eyes: PERRL, anicteric sclera, EOMI Ears, Nose, Mouth, Throat: moist mucous membranes, hearing normal, ears appear normal, no oral mucosal ulcers Cardiovascular: systolic murmur (1/6 at right sternal border, distant heart sounds), edema (1+ bilateral lower extremity), No irregularly irregular, No tachycardia Respiratory: reduced air movement (On expiration bilaterally), expiratory wheeze , bronchial breath sounds, No inspiratory crackles, No respiratory distress Gastrointestinal: normoactive bowel sounds, soft, non-tender abdomen, no palpable masses Skin: warm, normal color, no rashes or abrasions, no fluctuance, no induration, No mottled Neurologic: AAOx3, sensation intact bilaterally, No weakness (Motor strength 5/ 5 bilateral lower extremity), No facial droop Psychiatric: interacting appropriately, not anxious, not encephalopathic, thought process linear Lab Data & Imaging Review 06/07/17 16:50 06/07/17 16:50 WBC 8.25 10^3/uL (3.80-9.50) 06/07/17 16:50 RBC 4.74 10^6/uL (4.18-5.33) 06/07/17 16:50 Hgb 14.3 g/dL (12.6-16.3) 06/07/17 16:50 Hct 43.8 % (38.0-47.0) 06/07/17 16:50 MCV 92.4 fL (81.5-99.8) 06/07/17 16:50 MCH 30.2 pg (27.9-34.1) 06/07/17 16:50 MCHC 32.6 g/dL (32.4-36.7) 06/07/17 16:50 RDW 13.6 % (11.5-15.2) 06/07/17 16:50 Plt Count 251 10^3/uL (150-400) 06/07/17 16:50 MPV 10.3 fL (8.7-11.7) 06/07/17 16:50 Neut % (Auto) 60.5 % (39.3-74.2) 06/07/17 16:50 Lymph % (Auto) 24.6 % (15.0-45.0) 06/07/17 16:50 [place] % (Auto) 7.2 % (4.5-13.0) 06/07/17 16:50 Eos % (Auto) 6.3 % (0.6-7.6) 06/07/17 16:50 Baso % (Auto) 1.2 % (0.3-1.7) 06/07/17 16:50 Nucleat RBC Rel Count 0.0 % (0.0-0.2) 06/07/17 16:50 Absolute Neuts (auto) 4.99 10^3/uL (1.70-6.50) 06/07/17 16:50 Absolute Lymphs (auto) 2.03 10^3/uL (1.00-3.00) 06/07/17 16:50 Absolute Monos (auto) 0.59 10^3/uL (0.30-0.80) 06/07/17 16:50 Absolute Eos (auto) 0.52 10^3/uL (0.03-0.40) H 06/07/17 16:50 Absolute Basos (auto) 0.10 10^3/uL (0.02-0.10) 06/07/17 16:50 Absolute Nucleated RBC 0.00 10^3/uL (0-0.01) 06/07/17 16:50 Immature Gran % 0.2 % (0.0-1.1) 06/07/17 16:50 Immature Gran # 0.02 10^3/uL (0.00-0.10) 06/07/17 16:50 PT 12.5 SEC (12.0-15.0) 06/07/17 16:50 INR 0.94 (0.83-1.16) 06/07/17 16:50 APTT 25.5 SEC (23.0-38.0) 06/07/17 16:50 D-Dimer 1.16 ug/mLFEU (0.00-0.50) H 06/07/17 16:50 Sodium 139 mEq/L (134-144) 06/07/17 16:50 Potassium 4.1 mEq/L (3.5-5.2) 06/07/17 16:50 Chloride 103 mEq/L (97-110) 06/07/17 16:50 Carbon Dioxide 25 mEq/l (22-31) 06/07/17 16:50 Anion Gap 11 mEq/L (8-16) 06/07/17 16:50 BUN 10 mg/dL (7-23) 06/07/17 16:50 Creatinine 0.6 mg/dL (0.6-1.0) 06/07/17 16:50 Estimated GFR > 60 06/07/17 16:50 Glucose 95 mg/dL (70-100) 06/07/17 16:50 Calcium 9.4 mg/dL (8.5-10.4) 06/07/17 16:50 Magnesium 2.0 mg/dL (1.6-2.3) 06/07/17 16:50 Total Bilirubin 0.4 mg/dL (0.1-1.4) 06/07/17 16:50 Conjugated Bilirubin 0.3 mg/dL (0.0-0.5) 06/07/17 16:50 Unconjugated Bilirubin 0.1 mg/dL (0.0-1.1) 06/07/17 16:50 AST 19 IU/L (14-46) 06/07/17 16:50 ALT 31 IU/L (9-52) 06/07/17 16:50 Alkaline Phosphatase 87 IU/L (38-126) 06/07/17 16:50 Creatine Kinase 99 IU/L (0-156) 06/07/17 16:50 CK-MB (CK-2) Fraction 1.71 ng/mL (0.00-3.19) 06/07/17 16:50 Troponin I < 0.012 ng/mL (0.000-0.034) 06/07/17 16:50 NT-Pro-B Natriuret Pep 247 pg/mL (0-450) 06/07/17 16:50 Total Protein 6.5 g/dL (6.3-8.2) 06/07/17 16:50 Albumin 4.0 g/dL (3.5-5.0) 06/07/17 16:50 Lipase 40 IU/L (23-300) 06/07/17 16:50 Visualized and Interpreted imaging results: Yes Interpretation: Chest CT with mucous plugging bilaterally, emphysematous changes , no pulmonary embolism Visualized and Interpreted EKG results: Yes EKG Interpretation: Positive for: LVH, normal sinsus rhythm Assessment & Plan Assessment: 81-year-old female presents with acute COPD exacerbation Plan: 1. COPD exacerbation. Acute, new problem this provider, further workup indicated. Evidenced by diffuse expiratory wheezes come bronchial breath sounds , poor expiratory air movement comma hypoxia on presentation with symptomatic shortness of breath -send respiratory viral panel to evaluate for precipitant -no evidence of pulmonary embolism on CT angio -discussed with Dr. Alexander Hernandez, he reports to me that the patient has received duo nebs and steroids in the emergency department, continue on scheduled nebulizer treatment, initiated on steroids, azithromycin for anti- inflammatory effect -patient desires to go home on supplemental oxygen tomorrow 2. CHF. Acute on chronic, unclear type, reviewed outside records including 2009 echocardiogram demonstrating "low normal ejection fraction" with diastolic dysfunction, per patient's weights she has gained 10 kg since 04/06/2017 -repeat echocardiogram now -give IV Lasix, gauge effect, transition to oral 3. Deep venous thrombosis. Present on admission, ultrasound demonstrating posterior tibial clot with elevated D-dimer and history of prior DVT -would recommend systemic anticoagulation indefinitely for this patient and she has not recently had any bleeding events -she has been initiated on Lovenox bridge to Coumadin, with the reasoning being that she is on Plavix for her previous cardiac stent and Coumadin may be more manageable if the patient does experience an acute bleeding event while she is on dual therapy -initial INR tomorrow morning, recommend outpatient follow-up through Dr. Lee's office 4. Coronary artery disease. Chronic, continue on Plavix and statin 5. Hypertension. Chronic, continue on verapamil Diet. Regular Prophylaxis. High risk patient, on systemic anticoagulation Code. Do not resuscitate per patient, her son is her MD POA Disposition. Anticipated discharge is 06/08/2017, pending clinical improvement of conditions outlined above.
--- NOTE | 2017-06-07 21:32 | PDHOMEO2F ---
Home Oxygen Face to Face Home Orders: I certify that a physician or a nurse practitioner or physician's carpenter assistant installer has had a [id number] encounter with this patient on the date of this order due to the diagnosis listed, which relates to the primary reason the patient requires home oxygen. Alternative treatments have been tried, or considered, and deemed ineffective. It is anticipated that supplemental oxygen will result in improvement with treatment. Home oxygen qualifying diagnosis: COPD Home oxygen secondary diagnosis: CHF SpO2 on room air (%): 87 Frequency of home oxygen needed: continuous Home oxygen liters per minute: 2 Home oxygen delivery device: nasal cannula Concentrator: Yes E-tanks for mobility and back up: Yes If ordering portable O2, is the patient mobile in the home?: Yes I certify that, based on these findings, the home oxygen is medically necessary for this patient for the following length of time. Length of time home oxygen needed: 1 month
[2017-06-07] MEDS: IPRATROPIUM/ALBUTEROL 3 ML DEYVIAL IH SCH (21:56)
[2017-06-07] MEDS: VERAPAMIL ER 180 MG TAB PO SCH (22:57)
[2017-06-07] MEDS: WARFARIN SODIUM 4 MG TAB PO SCH (22:57)
[2017-06-07] MEDS: OXYCODONE/APAP 5/325 TAB PO SCH (22:57)
[2017-06-07] MEDS: FUROSEMIDE 40 MG/4 ML VIAL IVP SCH (22:57)
[2017-06-07] MEDS: ENOXAPARIN 80 MG/0.8 ML SYR SC SCH ×2 (22:58→23:18)
[2017-06-08] MEDS: MELATONIN 3 MG TAB PO PRN ×2 (02:55→21:51)
[2017-06-08] MEDS: IPRATROPIUM/ALBUTEROL 3 ML DEYVIAL IH SCH ×4 (05:19→21:35)
[2017-06-08 05:58] LABS: INR 1.01 (0.83-1.16); PROTIME(PATIENT) 13.2 SEC (12.0-15.0)
[2017-06-08 06:06] LABS: ANION GAP 9 mEq/L (8-16); CALCIUM 9.2 mg/dL (8.5-10.4); CARBON DIOXIDE 24 mEq/l (22-31); CHLORIDE 103 mEq/L (97-110); CREATININE 0.5 mg/dL (0.6-1.0); GLOMERULAR FILTRATION RATE > 60; GLUCOSE 169 mg/dL (70-100); MAGNESIUM 1.8 mg/dL (1.6-2.3); POTASSIUM 4.1 mEq/L (3.5-5.2); SODIUM 136 mEq/L (134-144)
[2017-06-08] MEDS ORDERED: AZITHROMYCIN 250 MG TAB PO SCH (09:00)
[2017-06-08] MEDS: ENOXAPARIN 80 MG/0.8 ML SYR SC SCH (09:03)
[2017-06-08] MEDS: predniSONE 20 MG TAB PO SCH (09:04)
[2017-06-08] MEDS: NICOTINE 21 MG/24 HR PATCH TD SCH (09:05)
[2017-06-08] MEDS: MOMETASONE 220MCG INHALER IH SCH ×2 (09:17→21:46)
[2017-06-08] MEDS: ACETAMINOPHEN 325 MG TAB PO PRN (09:18)
--- NOTE | 2017-06-08 10:35 | ECHO ---
[email or web address] [address] [address] Main: [phone] Fax: [email or web address] Echocardiogram Name: ABBIE LYNCH MR#: [id number] Study Date: 06/08/2017 Study Time: 07:34 AM Date of : 1935 Age: 81 year(s) Height: 157.5 cm (62 in.) Weight: 53.52 kg (118 lb.) BSA: 1.53 m2 Gender: Female Examination: Echo Indication: Eval EF Image Quality: Contrast: Requested by: Michelet Grant BP: 143 mmHg/57 mmHg Heart Rate: Rhythm: Indication: Eval EF Procedure Staff Container Shop Welder: Joanna Aburto Physician: Ammon Douglass Requesting Provider: Conclusions: Normal size left ventricle. Normal global systolic LV function. EF is 73 %. No regional wall motion abnormality. Grade 1 diastolic dysfunction (abnormal relaxation). Trivial mitral valve regurgitation. Trivial tricuspid valve regurgitation. There are no significant valvular abnormalities. Measurements: Chambers Valvular Assessment AV/MV Valvular Assessment TV/PV Normal Normal Normal Name Value Range Name Value Range Name Value Range Ao Rosalia (MM): 3.6 cm (2.2 cm-3.7 AV Vmax: 1.24 m/s (1 m/s-1.7 cm) m/s) IVSd (2D): 0.7 cm (0.6 cm-1.1 AV maxP mmHg ( - ) cm) MV E Vmax: 0.62 m/s ( - ) LVDd (2D): 4.4 cm (3.9 cm-5.3 MV A Vmax: 1.12 m/s ( - ) cm) MV E/A: 0.55 ( - ) LVDs (2D): 2.5 cm (2.1 cm-4 cm) LVPWd (2D): 0.7 cm ( - ) LVEF (MOD4): 73 % (>=55 %) Continued Measurements: Chambers Valvular Assessment AV/MV Name Value Name Value LADs: 3.3 cm MV E/E' Lateral: 10.20 Patient: ABBIE LYNCH Study Date: 06/08/2017 Page 1 of 2 07:34 AM LADs Lon.4 cm LA Area: 14.6 cm2 Findings: Left Ventricle: Normal size left ventricle. Normal global systolic LV function. EF is 73 %. No regional wall motion abnormality. Grade 1 diastolic dysfunction (abnormal relaxation). Right Ventricle: Normal size right ventricle. Left Atrium: The left atrium is normal in size. Right Atrium: The right atrium is normal in size. Mitral Valve: The mitral valve is normal in appearance and function. Trivial mitral valve regurgitation. Aortic Valve: The aortic valve is normal in appearance and function. Tricuspid Valve: The tricuspid valve is normal in appearance and function. Trivial tricuspid valve regurgitation. Pulmonic Valve: Pulmonary valve not well visualized. Aorta: The aorta is normal. Pericardium: No pericardial effusion. There is pericardial fat. (No Signature Object) Patient: ABBIE LYNCH Study Date: 06/08/2017 Page 2 of 2 07:34 AM [id number]
--- NOTE | 2017-06-08 11:09 | HOSPPROG ---
Hospitalist Progress Note Assessment/Plan: 81-year-old female new to my care presenting with: 1. COPD exacerbation and acute hypoxemic resp failure -cont prednisone -pt refuses azithro. will start doxycycline 2. CHF. Acute on chronic, unclear type, reviewed outside records including 2009 echocardiogram demonstrating "low normal ejection fraction" with diastolic dysfunction, per patient's weights she has gained 10 kg since 04/06/2017 -repeat echocardiogram with nml EF -resume home lasix 3. Deep venous thrombosis. Present on admission, ultrasound demonstrating posterior tibial clot with elevated D-dimer and history of prior DVT -would recommend systemic anticoagulation indefinitely for this patient and she has not recently had any bleeding events -she has been initiated on Lovenox bridge to Coumadin, with the reasoning being that she is on Plavix for her previous cardiac stent and Coumadin may be more manageable if the patient does experience an acute bleeding event while she is on dual therapy -initial INR tomorrow morning, recommend outpatient follow-up through Dr. Lee's office 4. Coronary artery disease. Chronic, continue on Plavix and statin 5. Hypertension. Chronic, continue on verapamil Diet. Regular Prophylaxis. High risk patient, on systemic anticoagulation Code. Do not resuscitate per patient, her son is her MD POCoty Disposition. will change to inpatient status Subjective: STILL SHORT OF BREATH AT REST. NO CHEST PAIN. NOT FEELING WELL ENOUGH TO GO HOME. Objective: Vital Signs Temp Pulse Resp BP Pulse Ox 36.6 C 95 16 155/77 H 92 06/08/17 08:00 06/08/17 08:00 06/08/17 08:00 06/08/17 08:00 06/08/17 08:00 Microbiology 06/08/17 00:12 Respiratory Panel (PCR) - Final Nasal, Sinus - Swab No Organism Detected Laboratory Results 06/08/17 05:20 06/07/17 06/08/17 06/09/17 05:59 05:59 05:59 Intake Total 1130 Balance 1130 PT 13.2 SEC (12.0-15.0) 06/08/17 05:20 INR 1.01 (0.83-1.16) 06/08/17 05:20 cta chest reviewed calf us Impression: Partial thrombus posterior tibial veins in the calf. No other findings more proximal for deep venous thrombosis. Stable benign- appearing lymph node left groin. - Physical Exam Constitutional: no apparent distress, appears nourished, not in pain Eyes: PERRL, anicteric sclera, EOMI Cardiovascular: regular rate and rhythym, no murmur, rub, or gallop Respiratory: other (short of breath at rest with diffuse wheezing) Gastrointestinal: normoactive bowel sounds, soft, non-tender abdomen, no palpable masses Neurologic: AAOx3, sensation intact bilaterally Psychiatric: interacting appropriately, not anxious, not encephalopathic, thought process linear ICD10 Worksheet Patient Problems: Problems Problem Status Onset COPD (chronic obstructive pulmonary disease) Acute DVT (deep venous thrombosis) Acute Hypoxia Acute Pneumonia Acute Osteoarthritis of hip Acute CAD (coronary atherosclerotic disease) Chronic
[2017-06-08] MEDS: FUROSEMIDE 40 MG/4 ML VIAL IVP SCH ×2 (11:46→16:51)
[2017-06-08] MEDS: DOXYCYCLINE HYCLATE 100 MG CAP/TAB PO SCH ×2 (11:47→21:51)
--- NOTE | 2017-06-08 15:18 | ASMTCASEMG ---
Living Arrangements What is your living Answers: With Child(walt) arrangement? Who do you live with? Type Of Residence What kind of residence do Answers: House you live in? Discharge Plan Comments Coordination Status Comments Notes: Chart reviewed, pt is a 81 y/o female admitted w/ hypoxia and mucous plugging. CM met w/ pt for dispo planning. OT is recommending HC. PT is recommending home. Pt reports that she had PT for months after her hip replacement, which was recent. Pt reports that she is not interested in having any HC at this time. Pt reports that she will d/c independent w/ supportive son that lives w/ her. CM available for changes. Date Signed: 06/08/2017 03:17 PM Electronically Signed By:AMPARO Allison
[2017-06-08] MEDS: WARFARIN SODIUM 4 MG TAB PO SCH (16:51)
[2017-06-08] MEDS ORDERED: PRAVASTATIN SODIUM 40 MG TAB PO SCH (21:00)
[2017-06-08] MEDS: OXYCODONE/APAP 5/325 TAB PO SCH (21:51)
[2017-06-08] MEDS: VERAPAMIL ER 180 MG TAB PO SCH (21:51)
[2017-06-08] MEDS: ENOXAPARIN 60 MG/0.6 ML SYR SC SCH (21:52)
[2017-06-08] MEDS ORDERED: CLOPIDOGREL BISULFATE 75 MG TAB PO SCH (22:00)
[2017-06-09] MEDS ORDERED: guaiFENesin 600 MG TAB.ER PO PRN (00:49)
[2017-06-09] MEDS: CEPACOL LOZENGE PO PRN ×2 (01:49→08:34)
[2017-06-09 05:28] LABS: % IMMATURE GRANULYOCYTES 0.4 % (0.0-1.1); ABSOLUTE IMMATURE GRANULOCYTES 0.05 10^3/uL (0.00-0.10); ADD DIFF? NO; ADD MORPH? NO; ADD SCAN? NO; ATYPICAL LYMPHOCYTE FLAG 0 (0-99); FRAGMENT RBC FLAG 0 (0-99); HEMATOCRIT 37.2 % (38.0-47.0); HEMOGLOBIN 12.5 g/dL (12.6-16.3); LEFT SHIFT FLG 0 (0-99); LIPEMIA HEMOLYSIS FLAG 80 (0-99); MEAN CELL HEMOGLOBIN 30.6 pg (27.9-34.1); MEAN CELL HEMOGLOBIN CONCENTR. 33.6 g/dL (32.4-36.7); MEAN PLATELET VOLUME 11.1 fL (8.7-11.7); PLATELET CLUMPS FLAG 0 (0-99); PLATELET COUNT 234 10^3/uL (150-400); RED BLOOD CELL COUNT 4.09 10^6/uL (4.18-5.33); RED CELL DISTRIBUTION WIDTH 13.6 % (11.5-15.2)
[2017-06-09 05:30] LABS: ANION GAP 7 mEq/L (8-16); CALCIUM 9.5 mg/dL (8.5-10.4); CARBON DIOXIDE 28 mEq/l (22-31); CHLORIDE 99 mEq/L (97-110); CREATININE 0.7 mg/dL (0.6-1.0); GLOMERULAR FILTRATION RATE > 60; GLUCOSE 107 mg/dL (70-100); POTASSIUM 3.6 mEq/L (3.5-5.2); SODIUM 134 mEq/L (134-144)
[2017-06-09] MEDS: IPRATROPIUM/ALBUTEROL 3 ML DEYVIAL IH SCH ×2 (05:48→11:57)
[2017-06-09 05:58] LABS: INR 1.34 (0.83-1.16); PROTIME(PATIENT) 16.6 SEC (12.0-15.0)
[2017-06-09] MEDS: NICOTINE 21 MG/24 HR PATCH TD SCH (08:24)
[2017-06-09] MEDS: ENOXAPARIN 60 MG/0.6 ML SYR SC SCH (08:34)
[2017-06-09] MEDS: FUROSEMIDE 40 MG/4 ML VIAL IVP SCH (08:34)
[2017-06-09] MEDS: DOXYCYCLINE HYCLATE 100 MG CAP/TAB PO SCH (08:34)
[2017-06-09] MEDS: ACETAMINOPHEN 325 MG TAB PO PRN (08:35)
[2017-06-09] MEDS: predniSONE 20 MG TAB PO SCH (08:35)
[2017-06-09] MEDS: MOMETASONE 220MCG INHALER IH SCH (08:44)
[2017-06-09 11:06] VITALS: BP 127/66; RESP 20; TEMP 98.4
[2017-06-09 12:01] VITALS: PULSE 78; O2SAT 94
[2017-06-09 13:20] LABS: CHOLESTEROL 137 mg/dL (140-220); CHOLESTEROL/HDL RATIO 3.04 RATIO (1.00-4.44); HIGH DENSITY LIPOPROTEIN 45 mg/dL (40-85); LDL/HDL RATIO 1.73 RATIO (1.00-3.22); LOW DENSITY LIPOPROTEIN 78 mg/dL (80-100); NON-HIGH DENSITY LIPOPROTEIN 92 mg/dL (90-129); TRIGLYCERIDE 74 mg/dL (35-135); VERY LOW DENSITY LIPOPROTEINS 14 mg/dL (8-25)
--- NOTE | 2017-06-09 14:41 | PDDCSUM ---
Discharge Summary Discharge Summary: DISCHARGE SUMMARY FOLLOW-UP ITEMS: 1. Determine whether to continue aspirin or Plavix by Dr. Link 2. Followup PT INR, electrolyte panel by Dr. Lee DATE OF ADMISSION: 06/07/2017 DATE OF DISCHARGE: 06/09/2017 DISCHARGE DIAGNOSES: 1. Acute COPD exacerbation 2. Acute hypoxic respiratory failure 3. Acute on chronic diastolic CHF exacerbation 4. Acute deep venous thrombosis, present on admission 5. Chronic coronary artery disease 6. Chronic hypertension CONSULTATIONS: None PROCEDURES / IMAGING: CT angiograms demonstrating no evidence of pulmonary embolism, diffuse mucus plugging CHIEF COMPLAINT: Acute shortness of breath SUBJECTIVE: Patient is feeling well at time of discharge, she continues to have some shortness of breath when off of supplemental oxygen PHYSICAL EXAM ON DISCHARGE: Systolic pressure 140-150, heart rate 80, 86% on room air, satting well on 2 L nasal cannula, reduced expiratory air movement diffusely but without any expiratory wheezes and bronchial breath sounds, alert awake oriented x3, no tachypnea LABS ON DISCHARGE: INR 1.3, potassium 3.6, creatinine 0.7, respiratory viral PCR negative, hemoglobin 12.5 HOSPITAL COURSE BY PROBLEM: 1. Acute COPD exacerbation. Evidenced by expiratory wheezes and bronchial breath sounds with symptomatic shortness of breath and hypoxia, secondary to a URI or acute CHF exacerbation. She was treated aggressively with steroids, duo nebs, antibiotic and her condition improved. Time of discharge, she continues to have reduction in her expiratory air movement, which I suspect is her baseline. She no longer has evidence of acutely reactive airways and she is safe for 5 day burst of prednisone, 5 days total of antibiotic, and resumption of her home medications including Spiriva, inhaled steroids, albuterol. 2. Acute hypoxic respiratory failure. Evidenced by objective tachypnea, objective hypoxia an SpO2 of 87% on room air on presentation, 86% on room air at time of discharge, requiring supplemental oxygen, pulse oximeter monitoring, aggressive pulmonary treatment as outlined above. Most likely cause is a combination of COPD exacerbation and CHF. Patient will most likely require supplemental oxygen for quite some time as her baseline pulmonary status is relatively poor. She should be reassessed in the outpatient setting by her primary care provider. 3. Acute on chronic diastolic congestive heart failure exacerbation. Patient's echocardiogram demonstrating focal wall motion abnormalities and no reduction in systolic function. She does have diastolic dysfunction, and she had overt lower extremity edema which has been increasing acutely. She had not been on diuretics prior to this presentation, and IV Lasix was initiated successfully. The patient diuresed well, her lower extremity improved, and she will be discharged on 20 mg twice daily with supplemental potassium. She will have her labs checked on Wednesday and ongoing management should be through her firebrick layer 's office. She otherwise be continued on her home medications. 4. Acute deep venous thrombosis, present on admission. Patient's ultrasound demonstrated bilateral lower extremity clot, but CT angiogram was negative for pulmonary embolism. Give patient will require anti-platelet medication for her underlying CAD, the patient and I have agreed that a trial of Coumadin is appropriate given that she may require reversal in the future for any procedures or bleeding complications. Consequently, the patient was initiated on Lovenox bridge to Coumadin, and should have her INR repeated on Wednesday. The patient was educated regarding Lovenox usage and covering herself for 24 hours beyond a therapeutic INR of 2-3. Consequently, her last dosage of Lovenox will be Wednesday morning. Regarding the duration of her therapy, this will be under the direction of her primary care provider office. 5. Coronary artery disease. Chronic, the patient has been taking Plavix every other day and aspirin daily. Her last stent was greater than 5 years ago and patient is likely appropriate for single agent anti-platelet therapy at this time. I recommend the patient continue her Plavix and discontinue her aspirin, and follow up with her primary firebrick layer next week to discuss whether this strategy should be continued or whether she should minimize her bleeding risk by taking aspirin and discontinuing Plavix. DISCHARGE MEDICATIONS: Please see official discharge medication reconciliation sheet in chart , Lovenox and Coumadin initiated, prednisone 60 x 2 subsequent days, doxycycline x2 subsequent days, Lasix 20 mg twice daily, KCl 20 mEq daily, continue other home medications DISCHARGE INSTRUCTIONS: Please have your labs drawn on Wednesday and follow up with primary care provider in 3-5 days, follow up with Dr. Link in 1 week. TIME SPENT: Greater than 30 minutes were spent on direct patient care, as well as discharge planning and preparation.
== END 2017-06-09 14:10 | disposition home or self-care (01) | DRG 190 ==
LOC: F3E 20:26 → OBSVTOIN 06-08 11:20
PROVIDERS: ADMIT Internal Medicine; ATTEND Internal Medicine
DX: J44.1 Chronic obstructive pulmonary disease with (acute) exacerbation (principal); I11.0 Hypertensive heart disease with heart failure; I50.33 Acute on chronic diastolic (congestive) heart failure; J96.01 Acute respiratory failure with hypoxia; I82.4Z3 Acute embolism and thrombosis of unspecified deep veins of distal lower extremity, bilateral; I25.10 Atherosclerotic heart disease of native coronary artery without angina pectoris; F17.210 Nicotine dependence, cigarettes, uncomplicated; Z87.01 Personal history of pneumonia (recurrent); Z95.5 Presence of coronary angioplasty implant and graft; Z86.718 Personal history of other venous thrombosis and embolism; Z99.81 Dependence on supplemental oxygen
CPT/HCPCS: 96374; 97161-GP; 97165-GO; G0378; G8978-GP-CI; G8979-GP-CI; G8987-GO-CI; G8988-GO-CI; G8989-GO-CI; J1650; J1940; Q9967

== ENCOUNTER 2017-06-26 17:27 | Inpatient (IN) | payer OTHER ==
[2017-06-26] MEDS ORDERED: NS 1,000 ML IV ONE (17:54)
[2017-06-26 18:05] LABS: PLATELET COUNT 302 10^3/uL (150-400)
[2017-06-26] MEDS ORDERED: IOPAMIDOL (ISOVUE-300) 100 ML BTL ONE (18:28)
[2017-06-26] MEDS ORDERED: ONDANSETRON 4 MG/2 ML VIAL IVP ONE (19:05)
--- NOTE | 2017-06-26 19:26 | EDPHY ---
H & P Stated Complaint: constipation, last BM 10 days ago Time Seen by Provider: 06/26/17 17:47 HPI/ROS: Chief Complaint: Abdominal pain, constipation HPI: 81-year-old woman presenting with 2-3 days of worsening abdominal pain. Patient states she has not had a bowel movement about a 4 5 days. Pain is been worsening. She has taken multiple laxatives including magnesium citrate today. She promptly vomited that up. I have worsening pain. No fevers or chills. No chest pain or shortness of breath. He, DVT ROS: 10 point Review of Systems is negative except as noted in the HPI. Social History: No smoking, no alcohol, no recreational drug use Family History: non-contributory Physical Exam: Gen: Awake, Alert, No Distress HEENT: Nose: no rhinorrhea Eyes: PERRLA, EOMI Mouth: Moist mucosa Neck: Supple, no JVD Chest: nontender, lungs clear to auscultation Heart: S1, S2 normal, no murmur Abd: Soft, distended, diffuse tenderness, no guarding Back: no CVA tenderness, no midline tenderness Ext: no edema, non-tender Skin: no rash Neuro: CN II-XII intact, Sensation grossly intact, Strength 5/5 in bilateral upper and lower extremities - Personal History Current Tetanus/Diphtheria Vaccine: Unsure Current Tetanus Diphtheria and Acellular Pertussis (TDAP): Unsure - Medical/Surgical History Hx Asthma: No Hx Chronic Respiratory Disease: Yes Hx Diabetes: No Hx Cardiac Disease: No Hx Renal Disease: No Hx Cirrhosis: No Hx Alcoholism: No Hx HIV/AIDS: No Hx Splenectomy or Spleen Trauma: No Other PMH: copd, stent, cad, htn, dvt - Social History Smoking Status: Light smoker Constitutional: Initial Vital Signs Temperature (C) 36.7 C 06/26/17 17:30 Heart Rate 108 H 06/26/17 17:30 Respiratory Rate 20 06/26/17 17:30 Blood Pressure 167/86 H 06/26/17 17:30 O2 Sat (%) 91 L 06/26/17 17:30 O2 Delivery Mode Nasal Cannula O2 (L/minute) 2 Allergies/Adverse Reactions: levofloxacin [From Levaquin] Allergy (Unknown, Verified 06/26/17 17:33) Unknown atorvastatin calcium [From Lipitor] Allergy (Verified 06/26/17 17:33) Home Medications: Medication Instructions Recorded Clopidogrel Bisulfate [Plavix (*)] 75 mg PO Q2D@2200 11/28/11 LORazepam [Ativan (*)] 0.5 mg PO HS PRN 03/28/13 Pravastatin Sodium [Pravachol] 40 mg PO HS 06/01/13 Sennosides [Senokot] 2 tab PO Q2D PRN 06/01/13 Tiotropium Inhaler [Spiriva 1 cap IH HS 06/01/13 Inhaler (RX)] Verapamil ER [Calan SR/ER 180MG 180 mg PO HS 06/01/13 (*)] Albuterol [Proventil Inhaler HFA 2 puffs IH TID PRN 01/14/15 (*)] Fluticasone Nasal [Flonase Nasal 1 sprays EACHNARE DAILY PRN 01/14/15 Gate] Mometasone 220Mcg Inhaler [Asmanex 2 puffs IH BID 01/14/15 Inh (*)] Albuterol 5 mg/ml INH [Proventil] 2.5 mg IH QID PRN 07/06/16 Docusate Sodium [Colace 100 MG (*)] 100 mg PO DAILY PRN 07/06/16 oxyCODONE HCL/ACETAMINOPHEN 1 each PO HS 06/07/17 [Percocet 5-325 mg Tablet] Doxycycline Hyclate [Vibramycin 100 mg PO BID #5 capsule 06/09/17 100 MG (*)] Enoxaparin [Lovenox 60 MG (*)] 60 mg SC BID #6 syr 06/09/17 Furosemide [Lasix 20 MG (*)] 20 mg PO BIDDIUR #60 tab 06/09/17 Potassium Cl [Klor-Con 20 meq (*)] 20 meq PO DAILY #30 tab 06/09/17 Warfarin Sodium [Coumadin 4MG (*)] 4 mg PO DAILY AT 4PM #30 tab 06/09/17 guaiFENesin [Mucinex 600 MG (*)] 600 mg PO BID PRN #10 tab.er 06/09/17 predniSONE 60 mg PO DAILY #6 tablet 06/09/17 Medical Decision Making - Diagnostics Imaging Results: Imaging Impressions Abdomen CT 06/26/17 17:58 Impression: 1. Fluid distention of the ascending and transverse colon to the level of the splenic flexure where there are some areas of mild concentric narrowing of the proximal descending colon, and relative decompression more distally. There is no obstructing mass identified, or convincing evidence of torsion. 2. Cholelithiasis. 3. There is a 6 x 8 mm groundglass attenuation nodule in the lateral right lower lobe, for which follow-up imaging has been previously recommended based upon a chest CT exam from 06/07/17. Please reference that report. 4. Status post right hip arthroplasty. Findings were discussed with Yung Dior MD at 19:23, on 06/26/2017. Imaging: Discussed imaging studies w/ diesel engine mechanic apprentice Radiologist ED Course/Re-evaluation: CT scan noted. Patient his obstructive pattern of large intestine with an empty descending colon. Discussed with the radiologist. I have discussed with Dr. De, hospitalist. Will admit the patient to the hospital for further care. Will continue IV hydration. Given that the descending colon see when rectum are decompressed there is no indication for enema or treatment from below at this time. Patient may need consultation colonoscopy by GI. - Data Points Laboratory Results: Laboratory Results 06/26/17 17:55 06/26/17 17:55 06/26/17 06/26/17 17:55 17:55 WBC 15.27 10^3/uL H 10^3/uL (3.80-9.50) RBC 4.79 10^6/uL 10^6/uL (4.18-5.33) Hgb 14.5 g/dL g/dL (12.6-16.3) Hct 43.3 % % (38.0-47.0) MCV 90.4 fL fL (81.5-99.8) MCH 30.3 pg pg (27.9-34.1) MCHC 33.5 g/dL g/dL (32.4-36.7) RDW 13.9 % % (11.5-15.2) Plt Count 302 10^3/uL 10^3/uL (150-400) MPV 10.1 fL fL (8.7-11.7) Neut % (Auto) 77.0 % H % (39.3-74.2) Lymph % (Auto) 13.0 % L % (15.0-45.0) [place] % (Auto) 6.6 % % (4.5-13.0) Eos % (Auto) 2.5 % % (0.6-7.6) Baso % (Auto) 0.5 % % (0.3-1.7) Nucleat RBC Rel Count 0.0 % % (0.0-0.2) Absolute Neuts (auto) 11.75 10^3/uL H 10^3/uL (1.70-6.50) Absolute Lymphs (auto) 1.99 10^3/uL 10^3/uL (1.00-3.00) Absolute Monos (auto) 1.01 10^3/uL H 10^3/uL (0.30-0.80) Absolute Eos (auto) 0.38 10^3/uL 10^3/uL (0.03-0.40) Absolute Basos (auto) 0.08 10^3/uL 10^3/uL (0.02-0.10) Absolute Nucleated RBC 0.00 10^3/uL 10^3/uL (0-0.01) Immature Gran % 0.4 % % (0.0-1.1) Immature Gran # 0.06 10^3/uL 10^3/uL (0.00-0.10) Sodium 137 mEq/L mEq/L (134-144) Potassium 3.9 mEq/L mEq/L (3.5-5.2) Chloride 100 mEq/L mEq/L (97-110) Carbon Dioxide 24 mEq/l mEq/l (22-31) Anion Gap 13 mEq/L mEq/L (8-16) BUN 10 mg/dL mg/dL (7-23) Creatinine 0.5 mg/dL L mg/dL (0.6-1.0) Estimated GFR > 60 Glucose 131 mg/dL H mg/dL (70-100) Calcium 9.2 mg/dL mg/dL (8.5-10.4) Medications Given: Discontinued Medications Sodium Chloride (Ns) 1,000 mls @ 0 mls/hr IV ONCE ONE; Wide Open PRN Reason: Protocol Stop: 06/26/17 17:55 Last Admin: 06/26/17 18:07 Dose: 1,000 mls Morphine Sulfate (Morphine) 4 mg IVP EDNOW ONE Stop: 06/26/17 19:06 Last Admin: 06/26/17 19:09 Dose: 4 mg Ondansetron HCl (Zofran) 4 mg IVP EDNOW ONE Stop: 06/26/17 19:06 Last Admin: 06/26/17 19:09 Dose: 4 mg Departure - Departure Disposition: [facility] Inpatient Acute Clinical Impression: Constipation, Large bowel obstruction Condition: Fair Referrals: River Lee MD [Primary Care Provider] - As per Instructions
[2017-06-26] MEDS ORDERED: ACETAMINOPHEN 325 MG TAB PO PRN (20:09)
[2017-06-26] MEDS ORDERED: DOCUSATE SODIUM 100 MG CAP PO PRN (20:10)
[2017-06-26] MEDS ORDERED: FLUTICASONE NASAL 120 SPRAYS/16 GM MDI EACHNARE PRN (20:10)
[2017-06-26 20:25] LABS: PROTIME(PATIENT) 115.5 SEC (12.0-15.0)
[2017-06-26 20:26] LABS: INR 15.19 (0.83-1.16)
[2017-06-26] MEDS ORDERED: PHYTONADIONE 5 MG in NS 50 ML IV ONE (20:32)
[2017-06-26] MEDS ORDERED: FUROSEMIDE 20 MG/2 ML VIAL IVP ONE ×3 (20:41→20:42)
--- NOTE | 2017-06-26 20:54 | GHP ---
[f rep st] HISTORY AND PHYSICAL DATE OF ADMISSION: 06/26/2017 CHIEF COMPLAINT: Constipated. HISTORY OF PRESENT ILLNESS: This is an 81-year-old female, who presents with 8 to 10 days of constipation. She was admitted here recently for COPD exacerbation, started on prednisone as well as Lasix for CHF. She relates her symptoms to these. She has not had a bowel movement for 8 days. Her last bowel movement was mushy. She has never had any blood in her stool. She has no change in the caliber of her stool. She has been taking multiple laxatives. Today she took magnesium citrate and vomited it up. She has never had a colonoscopy. PAST MEDICAL/SURGICAL HISTORY: 1. PE/DVT. 2. COPD. 3. Hyperlipidemia. 4. Coronary artery disease, status post stent, on aspirin and Plavix. 5. Hypertension. 6. Nocturnal O2. 7. Diastolic CHF. MEDICATIONS: Please see medication reconciliation. ALLERGIES: Levaquin and atorvastatin. SOCIAL HISTORY: She lives with her son who is blind. FAMILY HISTORY: Reviewed and noncontributory. REVIEW OF SYSTEMS: A 10-point review of systems is conducted and is negative except per HPI. PHYSICAL EXAMINATION: VITAL SIGNS: Blood pressure 155/76, heart rate 75, respiration rate 15, saturating 96% on 2 L. Temperature 36.7. GENERAL: The patient is a pleasant female who appears somewhat uncomfortable, in mild distress. HEENT: Normocephalic, atraumatic. CARDIOVASCULAR: Regular rate and rhythm. No murmurs, rubs, or gallops. PULMONARY: Lungs have mild diffuse wheezing and rhonchi. ABDOMEN: Abdominal exam shows her to be very distended. She is firm. She is mildly tender to palpation diffusely but she says mostly on the right side. She has infrequent bowel sounds. SKIN: No rash. GENITOURINARY: She has no Wilson. NEUROLOGIC: Alert and oriented x3. She is moving all extremities. PSYCHIATRIC: Normal mood and affect. LABORATORY DATA: White count is 15. INR is pending. Basic metabolic panel shows creatinine of 0.5. DATA: I discussed this with Dr. Gonzalez as well as Dr. Dior. Will admit to med /surg, prep for colonoscopy with Fleet's enema. Abdominal CT, which I personally viewed and interpreted, shows a distended ascending and transverse colon with a decompressed descending colon. IMPRESSION AND PLAN: 81-year-old female with colon obstruction. 1. Colonic obstruction: Concern for a tumor. I have discussed this with Dr. Gonzalez. He would like to perform a limited colonoscopy tomorrow. Will attempt to prep her from below as she will not tolerate it from above. We will give her a Fleet's enema tonight and a Fleet's enema tomorrow. She is on Coumadin. Her INR is pending. I will let the doctor know her coagulation status when her INR returns. She is also on Plavix. 2. Chronic obstructive pulmonary disease: She had a recent exacerbation. She is still mildly wheezy. We will continue her inhalers. 3. Pulmonary embolus/deep venous thrombosis: She did have a distal calf deep venous thrombosis at the beginning of this month. This was hes second episode of VTE. Plan would be for lifelong anticoagulation. This finding and the possibility of cancer are concerning. 4. Coronary artery disease, status post stents: She is on Plavix, statin, warfarin. I do not believe she had the stent placed any time recently. 5. Diastolic congestive heart failure: She is on Lasix. I will hold this for now. 6. She will need some IV hydration. 7. She has a right lower lobe nodule: Also concerning in the setting of possible cancer. This will certainly need some followup based on findings in her colon. 8. Code status: She would like to be limited. She would not want to be intubated but she would want chest compressions. ADDENDUM: INR 15. Will give vit K and 3 units of FFP, each followed by lasix 20mg IV. Recheck INR after FFP. Watch for volume overload. Consider IV filter based on colonoscopy findings and potential need for surgery.. /[id number]/MODL MTDD
[2017-06-26] MEDS ORDERED: PRAVASTATIN SODIUM 40 MG TAB PO SCH (21:00)
[2017-06-26] MEDS: ONDANSETRON 4 MG/2 ML VIAL IVP PRN (21:34)
[2017-06-26] MEDS: HYDROmorphONE/DILAUDID 1 MG/ML INJ IVP PRN (21:35)
[2017-06-26] MEDS ORDERED: CLOPIDOGREL BISULFATE 75 MG TAB PO SCH (22:00)
[2017-06-26] MEDS: TIOTROPIUM INHALER 18 MCG/DOSE 5 DOSE/MDI IH SCH (23:04)
[2017-06-27] MEDS: OXYCODONE/APAP 5/325 TAB PO SCH ×2 (00:17→00:32)
[2017-06-27] MEDS: PRAVASTATIN SODIUM 20 MG TAB PO SCH ×2 (00:17→21:17)
[2017-06-27] MEDS: FUROSEMIDE 20 MG/2 ML VIAL IVP PRN ×2 (00:33→05:33)
[2017-06-27] MEDS: VERAPAMIL ER 180 MG TAB PO SCH ×2 (00:45→21:17)
[2017-06-27] MEDS: HYDROmorphONE/DILAUDID 1 MG/ML INJ IVP PRN ×6 (01:17→16:55)
[2017-06-27] MEDS: PROMETHAZINE HCL 25 MG/ML INJ IVP PRN (01:17)
[2017-06-27 06:17] LABS: PLATELET COUNT 254 10^3/uL (150-400)
[2017-06-27] MEDS ORDERED: FUROSEMIDE 20 MG/2 ML VIAL IVP PRN (06:17)
[2017-06-27 06:26] LABS: INR 1.36 (0.83-1.16); PROTIME(PATIENT) 16.8 SEC (12.0-15.0)
[2017-06-27] MEDS: ALBUTEROL 200 PUFFS/18 GM MDI IH PRN (09:55)
[2017-06-27] MEDS ORDERED: MIDAZOLAM 2 MG/2 ML VIAL ONE (10:34)
[2017-06-27] MEDS ORDERED: fentaNYL 100 MCG/2 ML INJ ONE ×2 (10:35→12:25)
--- NOTE | 2017-06-27 10:41 | HOSPPROG ---
Hospitalist Progress Note Assessment/Plan: # Colon Obstruction - concern for mass based upon CT imaging. Dr. Gonzalez consulted and the plan is for colonoscopy today. # CAD - Hx stent placement over 5 years ago. Aspirin and Plavix on hold for colonoscopy. Patient has a listed allergy to statins. # Chronic Diastolic HF - appears euvolemic currently. She is on lasix as an outpatient. # HTN - Controlled currently. Continue verapamil. 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 She likely needs continuous oxygen and will ask RT to test for home oxygen need. # Pulmonary Nodule - This will need following. # DVT - Recently diagnosed. Supratherapeutic INR yesterday is now reversed. Will plan on resuming anticoagulation after colonoscopy complete. # Bowel/Bladder - She is passing stools today. # DVT prophylaxis - she will be anticoagulated again once colonoscopy complete. # Dispo - likely able to return home when medical evaluation complete. Subjective: Patient admitted overnight with concern for colon obstruction. She states belly feels much better today and less distended. She has passed some formed stool this morning. She has not noted any bloody stools. She does not have a family history of colon cancer. Objective: Vital Signs Temp Pulse Resp BP Pulse Ox 37.1 C 90 18 124/56 H 86 L 06/27/17 08:08 06/27/17 09:45 06/27/17 09:45 06/27/17 08:08 06/27/17 09:45 Laboratory Results 06/27/17 06:10 06/27/17 06:10 06/26/17 06/27/17 06/28/17 05:59 05:59 05:59 Intake Total 1650 Output Total 2000 800 Balance -350 -800 PT 16.8 SEC (12.0-15.0) H D 06/27/17 06:10 INR 1.36 (0.83-1.16) H 06/27/17 06:10 - Physical Exam Constitutional: no apparent distress, appears nourished, not in pain Cardiovascular: regular rate and rhythym, no murmur, rub, or gallop Respiratory: no respiratory distress, no rales or rhonchi, other (slight wheeze) , No clear to auscultation Gastrointestinal: normoactive bowel sounds, soft, non-tender abdomen, no palpable masses Genitourinary: No pritchard in urethra ICD10 Worksheet Patient Problems: Problems Problem Status Onset Constipation Acute Large bowel obstruction Acute COPD (chronic obstructive pulmonary disease) Acute DVT (deep venous thrombosis) Acute Hypoxia Acute Osteoarthritis of hip Acute Pneumonia Acute chronic disease mgmt/transitional care Acute CAD (coronary atherosclerotic disease) Chronic
--- NOTE | 2017-06-27 10:44 | SOAPPROG ---
[facility] Progress Note Assessment/Plan: Assessment:Plan: see full dictated consult 81 y/o female with colon obstruction in descending colon area not clearly mass nor volvulus on CT limited colon to asses. If unable to reach will order Gastrografin enema and consider repeat scope pending results Yung Gonzalez m.D. 06/27/17 10:42 Objective: Vital Signs Temp Pulse Resp BP Pulse Ox 37.1 C 90 18 124/56 H 86 L 06/27/17 08:08 06/27/17 09:45 06/27/17 09:45 06/27/17 08:08 06/27/17 09:45 Laboratory Results 06/27/17 06:10 06/27/17 06:10 06/26/17 06/27/17 06/28/17 05:59 05:59 05:59 Intake Total 1650 Output Total 2000 800 Balance -350 -800 PT 16.8 SEC (12.0-15.0) H D 06/27/17 06:10 INR 1.36 (0.83-1.16) H 06/27/17 06:10 ICD10 Worksheet Patient Problems: Problems Problem Status Onset Constipation Acute Large bowel obstruction Acute COPD (chronic obstructive pulmonary disease) Acute DVT (deep venous thrombosis) Acute Hypoxia Acute Osteoarthritis of hip Acute Pneumonia Acute chronic disease mgmt/transitional care Acute CAD (coronary atherosclerotic disease) Chronic
--- NOTE | 2017-06-27 10:44 | PDPROPOC ---
Sedation Plan of Care Sedation Plan of Care: vital signs stable, mental status noted, patient educated of risks, benefits, alternatives, patient can tolerate sedation ASA Classification: ASA 3 Planned drugs: fentanyl, midazolam Mallampati Score: Class 2 Mallampati Reference Image: Patient passed 3-3-2 rule?: Yes
--- NOTE | 2017-06-27 11:39 | POSTOPPROG ---
Post Op Note Date of Operation: 06/27/17 Surgeon: Yung Gonzalez Anesthesia: IV Sedation (versed 6mg fentanyl 100 mcg) Pre-op Diagnosis: colon obstruction Post-op Diagnosis: volvulus Indication: abnl CT with colon obstruction Procedure: colonoscopy with attempted decompression tube Findings: vovlulus Inf/Abcess present in the surg proc area at time of surgery?: No EBL: none Total fluids administered: 300 ml LR Complications: none immediate decompression tube didn't stay in place
--- NOTE | 2017-06-27 11:45 | GIREPORT ---
[facility] Surgical Services - Endoscopy Department Patient Name: Porsche Lowery Procedure Date: 06/27/2017 10:25 AM Patient Type: Inpatient Attending MD/ ER Physician: Fabiola Barcenas Procedure: Colonoscopy Indications: Abnormal CT of the GI tract Providers: Sam Gonzalez MD Medicines: Fentanyl 100 micrograms IV, Midazolam 6 mg IV Complications: No immediate complications. Estimated blood loss: None. Description of Procedure: After obtaining informed consent, the scope was passed under direct vis ion. Throughout the procedure, the patient's blood pressure, pulse, and oxyg en saturations were monitored continuously. The Colonoscope with irrigatio n channel was introduced through the anus and advanced to the transverse colon for evaluation. This was the intended extent. After obtaining informed consent, the scope was passed under direct vision. Throughout the proce dure, the patient's blood pressure, pulse, and oxygen saturations were monito red continuously.The colonoscopy was performed without difficulty. The oswaldo ent tolerated the procedure well. The quality of the bowel preparation was adequate. Findings: The perianal exam findings include non-thrombosed external hemorrhoids. The digital rectal exam was normal. The rectum and sigmoid colon appeared normal. A volvulus, with viable appearing mucosa, was found in the proximal sig moid colon. Decompression of the volvulus was attempted and was successful, with complete decompression achieved. following the maneuver, a tube was felton rodger to maintain the decompression, but was unsuccessful A large amount of stool was found in the proximal descending colon, at the splenic flexure and in the transverse colon, precluding visualization. The exam was otherwise without abnormality. Estimated Blood Loss: Estimated blood loss: none. Post Op Diagnosis: - Non-thrombosed external hemorrhoids found on perianal exam. - The rectum and sigmoid colon are normal. - Volvulus. Partial decompression achieved. - Stool in the proximal descending colon, at the splenic flexure and in the transverse colon. - The examination was otherwise normal. - No specimens collected. Recommendation: - Refer to a surgeon today. - NPO. - Return patient to [facility] prior to surgery. - Thank you for allowing me to help in your patient's care. Do not hesi mora to call with any questions. Attending Participation: I personally performed the entire procedure. Carlos Vargas M.D Sam Gonzalez MD 06/27/2017 11:45:00 AM This report has been signed electronicallyMathew MD Carlos Number of Addenda: 0 Note Initiated On: 06/27/2017 10:25 AM Total Procedure Duration Time 0 hours 24 minutes 44 seconds [email or web address]
[2017-06-27] MEDS ORDERED: BUPIVACAINE 0.25% 30 ML SDV ONE (12:12)
--- NOTE | 2017-06-27 12:13 | PDANEPAE ---
ANE History of Present Illness exp lap ANE Past Medical History - Cardiovascular History Hx Hypertension: Yes Hx Arrhythmias: No Hx Chest Pain: No Hx Coronary Artery / Peripheral Vascular Disease: Yes Hx CHF / Valvular Disease: No Hx Palpitations: No Cardiovascular History Comment: ANGIOGRAMS X2. STENT X1. HYPERCHOLESTEREMIA - Pulmonary History Hx COPD: Yes Hx Asthma/Reactive Airway Disease: No Hx Recent Upper Respiratory Infection: No Hx Oxygen in Use at Home: Yes O2 in Use at Home (L/minute): 2 Hx Sleep Apnea: No Sleep Apnea Screening Result - Last Documented: Positive Pulmonary History Comment: HOME O2 NOC @2L. PNEUMONIA 2012 - Neurologic History Hx Cerebrovascular Accident: No Hx Seizures: No Hx Dementia: No - Endocrine History Hx Diabetes: No Endocrine History Comment: BORDERLINE DIAB - NO MEDS - Renal History Hx Renal Disorders: No - Liver History Hx Hepatic Disorders: No - Neurological & Psychiatric Hx Hx Neurological and Psychiatric Disorders: No - Cancer History Hx Cancer: No - Congenital Disorder History Hx Congenital Disorders: No - GI History Hx Gastrointestinal Disorders: Yes Gastrointestinal History Comment: CONSTIPATION - Other Health History Other Health History: DVT L LEG 2 2012 - DISSOLVED ON OWN - Chronic Pain History Chronic Pain: Yes (RT HIP AND BACK) - Surgical History Prior Surgeries: RT TOTAL HIP 01/2015. APPENDECTOMY. ANGIOGRAM 2006 & 2012. VEIN LIGATION 2006. CARDIAC STENT PLACEMENT 2006 ANE Review of Systems Review of Systems: - Exercise capacity METS (RN): 3 METS ANE Patient History - Allergies Allergies/Adverse Reactions: levofloxacin [From Levaquin] Allergy (Unknown, Verified 06/26/17 17:33) Unknown atorvastatin calcium [From Lipitor] Allergy (Verified 06/26/17 17:33) - Home Medications Home Medications: Clopidogrel Bisulfate [Plavix (*)] 75 mg PO Q2D@2200 11/28/11 [Last Taken ] Pravastatin Sodium [Pravachol] 40 mg PO 06/01/13 [Last Taken 06/25/17] Sennosides [Senokot] 2 tab PO Q2D PRN 06/01/13 [Last Taken 06/03/17] Tiotropium Inhaler [Spiriva Inhaler (RX)] 1 cap IH 06/01/13 [Last Taken 06/25] Verapamil ER [Calan SR/ER 180MG (*)] 180 mg PO 09/26/13 [Last Taken 06/25/17] Albuterol [Proventil Inhaler HFA (*)] 2 puffs IH TID PRN 01/14/15 [Last Taken 10:00] Fluticasone Nasal [Flonase Nasal [place]] 1 sprays EACHNARE DAILY PRN 01/14/15 [ Last Taken 06/04/17] Docusate Sodium [Colace 100 MG (*)] 100 mg PO DAILY PRN 07/06/16 [Last Taken ] oxyCODONE HCL/ACETAMINOPHEN [Percocet 5-325 mg Tablet] 1 each PO HS 06/07/17 [ Last Taken 06/06/17 22:00] - NPO status NPO Since - Liquids (Date): 06/26/17 NPO Since - Liquids (Time): 23:59 NPO Since - Solids (Date): 06/26/17 NPO Since - Solids (Time): 23:59 - Anes Hx Anes Hx: no prior problems - Smoking Hx Smoking Status: Light smoker - Family Anes Hx Family Hx Anesthesia Complications: NEG ANE Labs/Vital Signs - Labs Result Diagrams: 06/27/17 06:10 06/27/17 06:10 - Vital Signs Blood Pressure: 155/73 Heart Rate: 95 Respiratory Rate: 22 O2 Sat (%): 97 Height: 157.48 cm Weight: 56.245 kg ANE Physical Exam - Airway Mallampati Score: Class 2 Mouth exam: normal dental/mouth exam - Pulmonary Pulmonary: no respiratory distress - Cardiovascular Cardiovascular: regular rate and rhythym - ASA Status ASA Status: III, E ANE Anesthesia Plan Anesthesia Plan: general endotracheal anesthesia
--- NOTE | 2017-06-27 12:16 | PDHPUP ---
History & Physical Update H&P update statement: This history and physical update is based on an assessment of the patient which was completed after admission or registration (within 24 hours), but prior to the surgery/procedure. H&P update: H&P reviewed & patient examined, no change in patient's condition since H&P completed
--- NOTE | 2017-06-27 12:17 | SOAPPROG ---
[facility] Progress Note Assessment/Plan: Assessment\Plan: 81yo F c colonic volvulus - Images reviewed. Also reviewed scope with Dr Gonzalez. Unreducible descending versus sigmoid volvulus. - Colon doesnt look ischemic yet. - Plan for OR, exploration. Colectomy. - Risks benefits and alternatives discussed with patient and son. 06/27/17 12:16 Objective: Vital Signs Temp Pulse Resp BP Pulse Ox 37.5 C 95 22 H 155/73 H 97 06/27/17 11:50 06/27/17 12:13 06/27/17 12:13 06/27/17 12:13 06/27/17 12:13 Laboratory Results 06/27/17 06:10 06/27/17 06:10 06/26/17 06/27/17 06/28/17 05:59 05:59 05:59 Intake Total 1650 Output Total 2000 800 Balance -350 -800 PT 16.8 SEC (12.0-15.0) H D 06/27/17 06:10 INR 1.36 (0.83-1.16) H 06/27/17 06:10 ICD10 Worksheet Patient Problems: Problems Problem Status Onset Constipation Acute Large bowel obstruction Acute COPD (chronic obstructive pulmonary disease) Acute DVT (deep venous thrombosis) Acute Hypoxia Acute Osteoarthritis of hip Acute Pneumonia Acute chronic disease mgmt/transitional care Acute CAD (coronary atherosclerotic disease) Chronic
[2017-06-27] MEDS ORDERED: ROCURONIUM 50 MG/5 ML VIAL ONE (12:24)
[2017-06-27] MEDS ORDERED: LIDOCAINE 2% 5 ML SDV ONE (12:25)
[2017-06-27] MEDS ORDERED: PROPOFOL 200 MG/20 ML VIAL ONE (12:25)
[2017-06-27] MEDS ORDERED: ERTAPENEM 1 GM in NS 100 ML IV ONE (12:30)
--- NOTE | 2017-06-27 12:38 | PDMN ---
Medical Necessity Medical necessity: C/M review: est. > 2 MN LOS for eval and TX of acute colonic volvulus seen on 06/27/2017 colonoscopy requiring urgent General surgery consult, ongoing NPO, IV fluids, comorbid CAD S/P stent, chronic diastolic heart failure, HTN, chronic hypoxic respiratory failure secondary to COPD, pulmonary nodule, recently diagnosed DVT per 06/27/2017 Hospitalist progress note.
[2017-06-27] MEDS ORDERED: METOPROLOL TARTRATE 5 MG/5 ML INJ ONE ×2 (13:16→13:46)
[2017-06-27] MEDS ORDERED: ONDANSETRON 4 MG/2 ML VIAL ONE (13:46)
[2017-06-27] MEDS ORDERED: SUGAMMADEX SODIUM 200 MG/2 ML VIAL IVP ONE (13:46)
--- NOTE | 2017-06-27 13:46 | GCON ---
[f rep st] CONSULTATION DATE OF CONSULTATION: 06/27/2017 REQUESTING PHYSICIAN: Sean De MD. INDICATION FOR CONSULTATION: Abnormal CT scan with colonic obstruction. HISTORY OF PRESENT ILLNESS: The patient is a pleasant 81-year-old female, who has past medical histo ry significant for coronary artery disease, COPD, distant history of pulmonary embolus and recent his tory of DVT for which she is on Coumadin, who presents to the hospital for 8 days of no bowel movemen ts, increasing abdominal distention and discomfort. She had a CT scan that did show dilated colon wi th decompressed descending sigmoid and rectum. There was no obvious volvulus noted on that exam, nor any obvious mass. Her laboratory studies are essentially normal and reviewed below. There is no an emia. She has had no weight loss. She did denies any upper symptoms including nausea, vomiting. He r liver enzymes are normal. Because of the abnormality on CT scan, she was admitted to the hospital. I am called to help evaluate in that regard. Of note, she has never had a colonoscopy, although th ere is no family history of colon cancer or colon polyps to her knowledge. PAST MEDICAL HISTORY: Coronary artery disease status post stent placement who is on aspirin and Plav ix, hypertension, COPD, distant history of pulmonary embolus, recent history of DVT on Coumadin, hype rlipidemia, need for oxygen at night, diastolic CHF. ALLERGIES: To Levaquin which gives her muscle pain and weakness, and statin which I am not sure of. MEDICATIONS: In hospital include Tylenol p.r.n., albuterol 2 puffs three times daily p.r.n., Colace 100 mg p.r.n., Flonase p.r.n., Dilaudid 0.2/0.4 mg IVP q.4 hours p.r.n., Zofran p.r.n., Percocet p.r. n., Pravachol 40 mg p.o. at bedtime, Phenergan p.r.n., Spiriva 18 mcg inhaler at bedtime, verapamil 1 80 mg p.o. at bedtime. At home she had been on Plavix which has been held, Coumadin which has been h eld and reversed and Lasix 20 mg twice daily. SOCIAL HISTORY: She continues to smoke approximately quarter to half pack a day. She drinks alcohol socially but not to excess. FAMILY HISTORY: No colon cancer, colon polyps, or intestinal issues to her knowledge. PAST SURGICAL HISTORY: Includes a hip replacement and revision of that hip replacement both on the r ight side. REVIEW OF SYSTEMS: A complete review of systems was performed is negative other than noted in the HP I. Other pertinent negatives include no chest pain, palpitations, diaphoresis. No weight loss. PHYSICAL EXAM: GENERAL: Well-developed, well-nourished, elderly female, sitting in her bed. No acu te distress. VITAL SIGNS: Blood pressure is 153/73, pulse is 92, respirations are 20. She was 95% on 2 L. EYES: Anicteric. AUSTEN, EOMI. MOUTH: No lesions. Moist membranes. NECK: Supple. Full range of motion. No JVD. BACK: No spine tenderness. No CVA tenderness. LUNGS: Clear to ausculta tion. CARDIAC: S1, S2. Regular rhythm. No murmurs, rubs or gallops appreciated. ABDOMEN: Bowel sounds are decreased in frequency and high-pitched. Abdomen is somewhat distended, mildly tender. N o rebound or no guarding. No hepatosplenomegaly. EXTREMITIES: Her left lower extremity has edema 2 +. This is where she has a DVT. The right lower extremity has trace edema. NEUROLOGIC: Cranial ne rves intact. Nonfocal. SKIN: No stigmata of advanced liver disease. No rashes. LABORATORY DATA: From the , WBC 15.27, hemoglobin 14.5, hematocrit 43.3, platelet count 302. Pr o-time 115.5, PT 15.19. Sodium 137, potassium 3.9, chloride 100, bicarb 24, BUN 10, creatinine 0.5, glucose 131, calcium 9.2. From today, bilirubin is 1.2, AST 22, ALT 40, alkaline phosphatase 92, tot al protein 6.9, albumin 3.9. Pro-time 16.8, INR of 1.36. WBC is 14.3, hemoglobin 13.4, hematocrit 4 0.6, platelet count 254. IMAGING: A CT scan performed yesterday with IV contrast but no oral or rectal contrast, showed fluid distention of the ascending transverse colon back to the level of splenic flexure. Mild concentric narrowing of the proximal descending colon and relative decompression more distally. There was no ob structing mass identified nor there was any convincing evidence of torsion. She does have cholelithi asis and a 6 x 8 mm ground-glass attenuating nodule in the lateral right lobe for which followup imag ing has already been previously recommended based on the chest CT from June 07, 2017. She has also has a right hip arthroplasty. I did review this with the radiologist this morning, and I agree with the reading as before. There is no obvious mass. There is no obvious torsion. Clearly, there seem s to be at least a partially obstructing if not a full obstructing lesion at this point. Differentia l diagnosis does include malignancy versus volvulus. There is no evidence of diverticulosis or diver ticulitis. I think an infectious problem is less likely. ASSESSMENT: 1. Abnormal CT scan with colonic obstruction. 2. Chronic obstructive pulmonary disease. 3. Pulmonary embolus, deep venous thrombosis. 4. Coronary artery disease status post stenting. 5. Diastolic congestive heart failure. RECOMMENDATIONS: 1. Reversal of Coumadin which has already been done. 2. Limited colonoscopy for evaluation of this abnormality. 3. Further recommendations to follow results of above. If this is a malignancy, certainly surgical resection is appropriate. If this is a volvulus, I will see if I can decompress it. If unable to de compress it, she may not require surgery, although they are likely to recur and she may require surge ry. If this is a volvulus and I cannot compress it, I will ask for surgical consultation. 4. Given the patient's multiple medical problems, this will be a higher risk procedure than normal. She will be monitored continuously for single line EKG, blood pressure every 5 minutes and continuou s oxygen saturation. A registered nurse will be present during the entire procedure to monitor the p atient. Thank you for allowing me to participate in this patient's healthcare. Do not hesitate to call me wi th any questions. /[id number]/MODL
--- NOTE | 2017-06-27 14:15 | POSTANESTH ---
Post Anesthetic Evaluation Cardiovascular Status: Normal, Stable Respiratory Status: Normal, Stable Level of Consciousness/Mental Status: Can Participate in Eval Pain Control: Adequate, Prn Tx Ordered Nausea/Vomiting Control: Adequate, Prn Tx Ordered Complications Possibly Related to Anesthesia: None Noted
[2017-06-27] MEDS ORDERED: NALOXONE HCL 0.4 MG/ML INJ IVP PRN (14:18)
[2017-06-27] MEDS ORDERED: MEPERIDINE 25 MG/ML SYR IVP PRN (14:18)
[2017-06-27] MEDS ORDERED: HYDROmorphONE/DILAUDID 1 MG/ML INJ ONE ×2 (14:19→15:02)
--- NOTE | 2017-06-27 14:47 | POSTOPPROG ---
Post Op Note Date of Operation: 06/27/17 Surgeon: Holger Chirinos Graphic Design Professor: Placido Baez Anesthesiologist: Rolando Anesthesia: GET(General Endotracheal) Pre-op Diagnosis: Sigmoid volvulus Post-op Diagnosis: sigmoid obstruction 2/2 adhesive band Procedure: ex-lap, adhesiolysis, left colon mobilization Findings: No volvulus, adhesive band causing obstruction Inf/Abcess present in the surg proc area at time of surgery?: No EBL: Minimal
--- NOTE | 2017-06-27 15:36 | GCON ---
[f rep st] CONSULTATION DATE OF CONSULTATION: 06/27/2017 CHIEF COMPLAINT: Abdominal distention with constipation. HISTORY OF PRESENT ILLNESS: This is an otherwise fairly healthy, 81-year-old female, who presented t o the hospital last evening complaining of not having a bowel movement in 8-10 days. In addition, sh e stated that her abdomen was more distended then previous. Of note, the patient was recently admitt ed for COPD exacerbation, and was started on steroids and Lasix for CHF exacerbation. She had been u sing multiple laxatives at home and was unsuccessful. The patient subsequently underwent CT scanning of her abdomen and pelvis, which did show an almost uniformly dilated colon, however, it appeared th at the distal portion of the colon in either descending and/or sigmoid colon decompressed. At any ra te, she was subsequently taken for a colonoscopy this morning, with an unprepped colon, and the gastr oenterologist subsequently evaluated what he thought was a volvulus, as there was a torturous dilated portion followed by a narrow portion, which was concerning for a volvulus, but had no ischemia. I w as asked to see the patient, given the findings. The patient denied pain, stated that she had been passing gas, but nothing solid , had no nausea or vomiting, but did endorse having abdominal distention. PAST MEDICAL HISTORY: PE, DVT on Coumadin, COPD, hyperlipidemia, coronary artery disease, hypertensi on, and diastolic congestive heart failure. PAST SURGICAL HISTORY: Hip replacement x2. MEDICATIONS: She does take Coumadin for her history of DVT, PE. Please see the completed med rec in [facility] for the remainder. ALLERGIES: Levaquin and atorvastatin. SOCIAL HISTORY: Lives with her son at home, who is blind. FAMILY HISTORY: Noncontributory. REVIEW OF SYSTEMS: A full 10-point review was performed, and unless stated above, is otherwise negat ros. PHYSICAL EXAMINATION: VITAL SIGNS: Temperature 37.5, heart rate 95, blood pressure 150/70, and she is 97% on 2 L. CONSTITUTIONAL: She is alert and oriented. In no apparent distress. She does appea r comfortable. EYES: Her pupils are equal, round, and reactive to light and accommodation. She has anicteric sclerae. Her extraocular movements are intact. EARS, NOSE, MOUTH AND THROAT: She has dry mucous membranes. Her hearing is normal, ears appear normal. She has no mucosal ulcers. CV: She has a regular rate and rhythm without any murmurs. RESPIRATORY: She is clear to ausculta tion bilaterally. ABDOMEN: Soft, distended, nontender, tympanitic, without rebound tenderness. SKI N: Warm, normal color, without rashes. MUSCULOSKELETAL: She has full muscle strength. No tenderne ss. Normal range of motion. NEUROLOGIC: She is alert and oriented x3. Cranial nerves 2-12 are int act without any weakness. PSYCH: She is interacting appropriately. Her thought process is normal. LYMPH, HEME AND IMMUNOLOGIC: She has no cervical groin or supraclavicular lymphadenopathy. LABS: Significant with a leukocytosis to 14,000. IMAGING: Includes a CT scan of her abdomen and pelvis, which was personally reviewed by me, shows a dilated stool-filled colon, which appears to change caliber on the left side. I do not see any sim volvulus or mass at this site. Recent colonoscope reviewed with the realty loan specialist, which shows tight sigmoid versus descending colon, concerning for volvulus. ASSESSMENT AND PLAN: An 81-year-old female with either large bowel obstruction versus volvulus. Aft er discussing with the patient and her son, and given her significant findings on colonoscopy. We wi ll plan to proceed to the operating room for exploration. If she has a volvulus, I will likely resec t. She could also have a mass causing this pseudoobstruction as well, and/or adhesions, which is les s likely given the fact that the patient has had no previous surgical history. I discussed the risks , benefits, and alternatives to the operation with them both, they wish to proceed. /[id number]/MODL
[2017-06-27 17:31] LABS: INR 1.35 (0.83-1.16); PROTIME(PATIENT) 16.7 SEC (12.0-15.0)
--- NOTE | 2017-06-27 18:47 | ASMTCMCOM ---
CM Note CM Note Notes: Reviewed chart re: d/c poc, pt's progress. Pt admitted w/ lg bowel obstruction, constipation x 8-10 days. Pt was recently discharged for COPD exacerbation/CHF. Hx includes PE/DVT, COPD, hyperlipidemia, CAD, s/p stent, HTN, nocturnal 02 and diastolic CHF. Pt lives w/ her son who is blind. Per notes, pt scheduled for a limited colonoscopy Sun for concern of a tumor; pt will also need to f/u for nodule on R lower lobe. Discharge needs remain TBD at this time. CM will cont to follow. Date Signed: 06/27/2017 06:46 PM Electronically Signed By:Cari Valenzuela RN
[2017-06-27] MEDS: OXYCODONE/APAP 5/325 TAB PO PRN (19:24)
[2017-06-27] MEDS: NS 1,000 ML IV SCH (19:26)
[2017-06-27] MEDS: TIOTROPIUM INHALER 18 MCG/DOSE 5 DOSE/MDI IH SCH (19:38)
[2017-06-27] MEDS ORDERED: PRAVASTATIN SODIUM 20 MG TAB PO SCH (21:00)
[2017-06-27] MEDS ORDERED: CLOPIDOGREL BISULFATE 75 MG TAB PO SCH ×2 (22:00)
[2017-06-28] MEDS: OXYCODONE/APAP 5/325 TAB PO PRN ×4 (00:35→19:48)
[2017-06-28] MEDS: NS 1,000 ML IV SCH (06:38)
--- NOTE | 2017-06-28 07:03 | GOP ---
[f rep st] OPERATIVE REPORT DATE OF OPERATION: 06/27/2017 SURGEON: Holger Chirinos MD VITREO RETINAL SURGEON: Placido Baez MD, who was necessary for proper exposure and timely completion of the case. ANESTHESIA: General endotracheal. ANESTHESIOLOGIST: David Marshall MD. PREOPERATIVE DIAGNOSIS: Sigmoid volvulus. POSTOPERATIVE DIAGNOSIS: Large bowel obstruction secondary to adhesive band. PROCEDURE PERFORMED: Exploratory laparotomy adhesiolysis with left colonic mobilization. FINDINGS: No volvulus. 1 single adhesive band causing what appeared to be the distal descending versus sigmoid colon obstruction, successfully lysed. SPECIMENS: None. ESTIMATED BLOOD LOSS: 5 cc. DESCRIPTION OF PROCEDURE: The patient was greeted in the preoperative suite. After discussing the risks, benefits, and alternatives with her and her son, as she had recently been anesthetized for her colonoscopy, the consent was signed. She was brought back to the operative suite, placed on the OR table in supine position. After all anesthesia machines, including SCDs, were on and functioning, a World Health Organization time-out was performed, ending with all in agreement. After successful induction of general anesthesia, the patient was then placed in the lithotomy position with all pressure points appropriately padded. Antibiotics were given on-call to the operating room. After her abdomen was prepped and draped in typical sterile fashion, I entered the abdomen via a midline cutdown, carried it down to the subcutaneous tissue, and sharply entered the abdomen via the midline fascia. Once in the abdomen, I placed retractors for appropriate visualization. I eviscerated the small bowel. I interrogated the right colon, which was normal and into its appropriate position. I carried this down. She did have a large, stool-filled transverse colon and a deep splenic flexure. I turned my attention down to the patient's pelvis where she had a single loop of bowel which appeared to be dilated and stuck down into the pelvis. I traced this from distal to proximal, and identified some adhesive bands causing what appeared to be a large bowel obstruction. I successfully lysed these adhesions and mobilized the entire left colon all the way to the level of the splenic flexure. Once this was done , I then interrogated the colon again. I did not appreciate any volvulus, and felt that the colon was lying in an appropriate fashion without any obstruction at this point. I interrogated the rest of the patient's abdomen. I found no masses throughout the colon or any other significant pathology. I irrigated the abdomen out with a liter of normal saline. I then returned all abdominal contents back to the abdominal cavity. I closed the fascia with a #1 PDS suture , noting excellent fascial reapproximation. The skin was then closed with willi. Sterile dressings were placed. The patient was then extubated in the operative suite and taken to the PACU in satisfactory condition. DRAINS: None. COUNTS: All counts were reported as correct x2. /[id number]/MODL MTDD
--- NOTE | 2017-06-28 09:06 | SOAPPROG ---
SOAP Progress Note Assessment/Plan: Assessment\Plan: 81yo F s/p ex-lap, adhesiolysis for LBO - Doing well, her pain appears well controlled - Abdomen is minimally distended and soft. Will start clears, if does well will advance - OOB, ambulate with assist. 06/27/17 12:16 06/28/17 09:05 Subjective: Pain 4/10, hungry Objective: Vital Signs Temp Pulse Resp BP Pulse Ox 36.8 C 91 16 133/68 H 97 06/28/17 07:43 06/28/17 07:43 06/28/17 07:43 06/28/17 07:43 06/28/17 07:43 06/27/17 06/28/17 06/29/17 05:59 05:59 05:59 Intake Total 2200 Output Total 620 500 Balance 1580 -500 PT 16.7 SEC (12.0-15.0) H 06/27/17 17:11 INR 1.35 (0.83-1.16) H 06/27/17 17:11 ICD10 Worksheet Patient Problems: Problems Problem Status Onset Constipation Acute Large bowel obstruction Acute COPD (chronic obstructive pulmonary disease) Acute DVT (deep venous thrombosis) Acute Hypoxia Acute Osteoarthritis of hip Acute Pneumonia Acute chronic disease mgmt/transitional care Acute CAD (coronary atherosclerotic disease) Chronic
[2017-06-28] MEDS ORDERED: IPRATROPIUM/ALBUTEROL 3 ML DEYVIAL ONE (09:35)
--- NOTE | 2017-06-28 10:00 | HOSPPROG ---
Hospitalist Progress Note Assessment/Plan: # Large Bowel Obstruction - secondary to adhesions. Patient is s/p surgery yesterday for adhesion lysis. She has advanced her diet to liquids this morning and seems to be doing fine. # CAD - Hx stent placement over 5 years ago. Aspirin and Plavix on hold for colonoscopy. She had been taking Plavix every other day. 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 Link. It is probably reasonable to resume aspirin with the coumadin as long as no bleeding complications but I recommend resuming anticoagulation first. She is on pravastatin. # Chronic Diastolic HF - appears euvolemic currently. She is on lasix as an outpatient. # HTN - Controlled currently. Continue verapamil. 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 She likely needs continuous oxygen and will ask RT to test for home oxygen need. # Pulmonary Nodule - This will need following as an outpatient. # DVT - distal. Recently diagnosed. Supratherapeutic INR on admission was reversed. I discussed resuming anticoagulation with Dr. Chirinos this morning and will plan on starting Lovenox tomorrow morning presuming she does not have any bleeding today or any significant drop in her hemoglobin overnight. I'll plan on first coumadin dose tomorrow afternoon. # Bowel/Bladder - Start daily Miralax. # DVT prophylaxis - she is ambulatory. Plan of full anticoagulation tomorrow. # Dispo - likely able to return home when medical evaluation complete. Subjective: Patient went to OR yesterday where adhesions were found and lysed. She did not need any bowel resection. No acute events overnight. She is tolerating liquids this morning and without any severe abdominal pain. She does note some pain when cough. Case reviewed with case management and patient' s nurse today. Objective: Vital Signs Temp Pulse Resp BP Pulse Ox 36.8 C 97 24 H 133/68 H 94 06/28/17 07:43 06/28/17 09:45 06/28/17 09:45 06/28/17 07:43 06/28/17 09:45 06/27/17 06/28/17 06/29/17 05:59 05:59 05:59 Intake Total 2200 Output Total 620 500 Balance 1580 -500 PT 16.7 SEC (12.0-15.0) H 06/27/17 17:11 INR 1.35 (0.83-1.16) H 06/27/17 17:11 - Physical Exam Constitutional: no apparent distress, appears nourished, not in pain Cardiovascular: regular rate and rhythym, no murmur, rub, or gallop Respiratory: no respiratory distress, no rales or rhonchi, clear to auscultation Gastrointestinal: normoactive bowel sounds, soft, non-tender abdomen, No guarding, No distension Genitourinary: prtichard in urethra ICD10 Worksheet Patient Problems: Problems Problem Status Onset Constipation Acute Large bowel obstruction Acute COPD (chronic obstructive pulmonary disease) Acute DVT (deep venous thrombosis) Acute Hypoxia Acute Osteoarthritis of hip Acute Pneumonia Acute chronic disease mgmt/transitional care Acute CAD (coronary atherosclerotic disease) Chronic
--- NOTE | 2017-06-28 11:35 | SOAPPROG ---
SOAP Progress Note Assessment/Plan: Assessment:Plan: see full dictated consult 81 y/o female with colon obstruction in descending colon area not clearly mass nor volvulus on CT limited colon to asses. If unable to reach will order Gastrografin enema and consider repeat scope pending results Yung Gonzalez m.D. 06/27/17 10:42 06/28/17 11:31 pt had limited colon yesterday that confirmed obstruction, although I thought it was a volvulus, but was an adhesive band 1) Colonic obstruction turned out to be an adhesive band, s/p lysis, post op as per surgery 2) Ileus - check 3 way abdo to assure the colonic obstruction has resolved 3) Diet - clears for now pending confirmation of resolution of obstruction and of post-op ileus 4) anticoagulation - recheck PT/INR, Coumadin as per hospitalists will follow Subjective: CC- Colonic obstruction related to adhesive band pt feeling better today, still no BM's nor much flatus tolerating clears no n/v, does have some post-op pain Objective: Vital Signs Temp Pulse Resp BP Pulse Ox 36.6 C 98 20 164/60 H 96 06/28/17 11:27 06/28/17 11:27 06/28/17 11:27 06/28/17 11:27 06/28/17 11:27 06/27/17 06/28/17 06/29/17 05:59 05:59 05:59 Intake Total 2200 Output Total 620 550 Balance 1580 -550 PT 16.7 SEC (12.0-15.0) H 06/27/17 17:11 INR 1.35 (0.83-1.16) H 06/27/17 17:11 A+Ox3 CTA S1S2, RRR +Bs, decreased, occ high pitch, mildly distended, tender without rebound ICD10 Worksheet Patient Problems: Problems Problem Status Onset Constipation Acute Large bowel obstruction Acute COPD (chronic obstructive pulmonary disease) Acute DVT (deep venous thrombosis) Acute Hypoxia Acute Osteoarthritis of hip Acute Pneumonia Acute chronic disease mgmt/transitional care Acute CAD (coronary atherosclerotic disease) Chronic
[2017-06-28] MEDS: HYDROmorphONE/DILAUDID 1 MG/ML INJ IVP PRN (11:40)
[2017-06-28] MEDS: POLYETHYLENE GLYCOL 3350 17 GM PKT PO SCH (13:55)
--- NOTE | 2017-06-28 16:51 | ASMTCMCOM ---
CM Note CM Note Notes: Still uncertain what patient will need on discharge. Patient to surgery for lysis of adhesions. Patient also had an endoscopy. Case management will continue to follow. Date Signed: 06/28/2017 04:50 PM Electronically Signed By:RICHARD Angeles
[2017-06-28] MEDS: OXYCODONE/APAP 5/325 TAB PO SCH (19:47)
[2017-06-28] MEDS: VERAPAMIL ER 180 MG TAB PO SCH (19:48)
[2017-06-28] MEDS: PRAVASTATIN SODIUM 20 MG TAB PO SCH (19:49)
[2017-06-28] MEDS: TIOTROPIUM INHALER 18 MCG/DOSE 5 DOSE/MDI IH SCH (21:29)
[2017-06-28] MEDS: ALBUTEROL 200 PUFFS/18 GM MDI IH PRN (21:35)
[2017-06-29] MEDS: OXYCODONE/APAP 5/325 TAB PO PRN (01:43)
[2017-06-29] MEDS ORDERED: ENOXAPARIN 60 MG/0.6 ML SYR SC SCH (09:00)
--- NOTE | 2017-06-29 09:26 | HOSPPROG ---
Hospitalist Progress Note Assessment/Plan: # large bowel obstruction/volvulus d/t adhesion POD#2 s/p VIJAY - still no BM/flatus - will d/w Dr Chirinos regarding management # CAD - on asa QD, plavix QOD; stent 5 years ago - cont to hold asa/plavix, restart at some point # DVT - distal calf - lovenox bridge to warfarin today # coagulopathy - reversed with FFP # COPD/chronic hypoxic resp failure - spiriva/albuterol # pulm nodule - outpatient f/u # dCHF - holding lasix; some LE edema that is chronic # htn - verapamil Subjective: no flatus, no BM, ongoing abd pain; ambulating Objective: Vital Signs Temp Pulse Resp BP Pulse Ox 36.6 C 78 22 H 135/89 H 98 06/29/17 07:57 06/29/17 07:57 06/29/17 07:57 06/29/17 07:57 06/29/17 07:57 06/28/17 06/29/17 06/30/17 05:59 05:59 05:59 Intake Total 2200 2250 Output Total 620 1050 Balance 1580 1200 PT 16.7 SEC (12.0-15.0) H 06/27/17 17:11 INR 1.35 (0.83-1.16) H 06/27/17 17:11 chart reviewed op notes reviewed - Physical Exam Constitutional: uncomfortable Cardiovascular: regular rate and rhythym, no murmur, rub, or gallop Respiratory: no respiratory distress, no rales or rhonchi, clear to auscultation Gastrointestinal: tenderness (diffusely), distension, other (faint BS), No guarding, No rebound ICD10 Worksheet Patient Problems: Problems Problem Status Onset Constipation Acute Large bowel obstruction Acute COPD (chronic obstructive pulmonary disease) Acute DVT (deep venous thrombosis) Acute Hypoxia Acute Osteoarthritis of hip Acute Pneumonia Acute chronic disease mgmt/transitional care Acute CAD (coronary atherosclerotic disease) Chronic
[2017-06-29] MEDS: POLYETHYLENE GLYCOL 3350 17 GM PKT PO SCH (09:46)
[2017-06-29 10:28] LABS: INR 2.91 (0.83-1.16); PROTIME(PATIENT) 30.8 SEC (12.0-15.0)
[2017-06-29] MEDS ORDERED: FLU VACC QS 2017-18 (3YR+)/PF 0.5 ML SYR (FLUARIX QUAD) IM ONE (10:30)
[2017-06-29] MEDS: METOCLOPRAMIDE 10 MG/2 ML VIAL IVP SCH ×3 (12:01→23:39)
[2017-06-29] MEDS: KETOROLAC 15 MG/1 ML SDV IVP SCH ×3 (12:01→23:35)
[2017-06-29] MEDS: IPRATROPIUM/ALBUTEROL 3 ML DEYVIAL IH PRN ×2 (12:17→20:44)
--- NOTE | 2017-06-29 12:41 | SOAPPROG ---
SOAP Progress Note Assessment/Plan: Assessment\Plan: 81yo F s/p ex-lap, adhesiolysis for LBO - more distended today. Still no bowel function - Added Toradol for pain for 24hrs - Also added 24hr trial of reglan to see if stimulates SB fxn 06/27/17 12:16 06/28/17 09:05 06/29/17 12:41 Subjective: more distended, wants to poop, wants to eat Objective: Vital Signs Temp Pulse Resp BP Pulse Ox 36.6 C 77 20 135/89 H 96 06/29/17 07:57 06/29/17 12:15 06/29/17 12:15 06/29/17 07:57 06/29/17 12:15 06/28/17 06/29/17 06/30/17 05:59 05:59 05:59 Intake Total 2200 2250 Output Total 620 1050 450 Balance 1580 1200 -450 PT 30.8 SEC (12.0-15.0) H D 06/29/17 10:10 INR 2.91 (0.83-1.16) H 06/29/17 10:10 ICD10 Worksheet Patient Problems: Problems Problem Status Onset Constipation Acute Large bowel obstruction Acute COPD (chronic obstructive pulmonary disease) Acute DVT (deep venous thrombosis) Acute Hypoxia Acute Osteoarthritis of hip Acute Pneumonia Acute chronic disease mgmt/transitional care Acute CAD (coronary atherosclerotic disease) Chronic
--- NOTE | 2017-06-29 15:49 | SOAPPROG ---
[facility] Progress Note Assessment/Plan: Assessment:Plan: see full dictated consult 81 y/o female with colon obstruction in descending colon area not clearly mass nor volvulus on CT limited colon to asses. If unable to reach will order Gastrografin enema and consider repeat scope pending results Yung Gonzalez m.D. 06/27/17 10:42 06/28/17 11:31 pt had limited colon yesterday that confirmed obstruction, although I thought it was a volvulus, but was an adhesive band 1) Colonic obstruction turned out to be an adhesive band, s/p lysis, post op as per surgery 2) Ileus - check 3 way abdo to assure the colonic obstruction has resolved 3) Diet - clears for now pending confirmation of resolution of obstruction and of post-op ileus 4) anticoagulation - recheck PT/INR, Coumadin as per hospitalists will follow 06/29/17 15:46 as above 1) Colonic obstruction - still no flatus or BM, AXR from yesterday shows air lower down then previous so i think she now has an Ileus 2) Ileus - check Mag and Phos replete if needed, off narcotics on toradol 3) Diet - clears for now 4) anticoagulation - as per primary if not moving anything by tomorrow, I will confer with Dr. Chirinos about a possible Gastrografin enema Subjective: cc- colonic obstruction s/p lysis of adhesion, now with ileus pt more uncomfortable, no flatus, wants to pass stool no cp, no n/v Objective: Vital Signs Temp Pulse Resp BP Pulse Ox 36.6 C 77 20 135/89 H 96 06/29/17 07:57 06/29/17 12:15 06/29/17 12:15 06/29/17 07:57 06/29/17 12:15 06/28/17 06/29/17 06/30/17 05:59 05:59 05:59 Intake Total 2200 2250 Output Total 620 1050 450 Balance 1580 1200 -450 PT 30.8 SEC (12.0-15.0) H D 06/29/17 10:10 INR 2.91 (0.83-1.16) H 06/29/17 10:10 A+Ox3 CTA S1S2 +BS, very minimal, distended, tender ICD10 Worksheet Patient Problems: Problems Problem Status Onset Constipation Acute Large bowel obstruction Acute COPD (chronic obstructive pulmonary disease) Acute DVT (deep venous thrombosis) Acute Hypoxia Acute Osteoarthritis of hip Acute Pneumonia Acute chronic disease mgmt/transitional care Acute CAD (coronary atherosclerotic disease) Chronic
[2017-06-29] MEDS ORDERED: WARFARIN SODIUM 5 MG TAB PO SCH (16:00)
--- NOTE | 2017-06-29 17:44 | ASMTCMCOM ---
CM Note CM Note Notes: Discharge needs still to be determined since patient is still having no bowel function and is extremely uncomfortable. Will follow up following reassessment in the morning regarding patients needs. Case management will continue to follow. Date Signed: 06/29/2017 05:43 PM Electronically Signed By:RICHARD Angeles
[2017-06-29] MEDS ORDERED: K PHOS 10 MMOL in D5W 250 ML IV ONE (18:07)
[2017-06-29] MEDS: VERAPAMIL ER 180 MG TAB PO SCH (20:03)
[2017-06-29] MEDS: PRAVASTATIN SODIUM 20 MG TAB PO SCH (20:04)
[2017-06-29] MEDS: OXYCODONE/APAP 5/325 TAB PO SCH (20:04)
[2017-06-29] MEDS: TIOTROPIUM INHALER 18 MCG/DOSE 5 DOSE/MDI IH SCH (20:45)
[2017-06-30] MEDS: OXYCODONE/APAP 5/325 TAB PO PRN ×3 (03:14→17:30)
[2017-06-30] MEDS: METOCLOPRAMIDE 10 MG/2 ML VIAL IVP SCH (05:01)
[2017-06-30] MEDS: KETOROLAC 15 MG/1 ML SDV IVP SCH (05:02)
[2017-06-30 05:13] LABS: PLATELET COUNT 233 10^3/uL (150-400)
[2017-06-30 05:21] LABS: INR 3.37 (0.83-1.16); PROTIME(PATIENT) 34.6 SEC (12.0-15.0)
[2017-06-30] MEDS: POLYETHYLENE GLYCOL 3350 17 GM PKT PO SCH (09:14)
[2017-06-30] MEDS: ALBUTEROL 200 PUFFS/18 GM MDI IH PRN (10:12)
--- NOTE | 2017-06-30 11:13 | SOAPPROG ---
SOAP Progress Note Assessment/Plan: Assessment:Plan: see full dictated consult 81 y/o female with colon obstruction in descending colon area not clearly mass nor volvulus on CT limited colon to asses. If unable to reach will order Gastrografin enema and consider repeat scope pending results Yung Gonzalez m.D. 06/27/17 10:42 06/28/17 11:31 pt had limited colon yesterday that confirmed obstruction, although I thought it was a volvulus, but was an adhesive band 1) Colonic obstruction turned out to be an adhesive band, s/p lysis, post op as per surgery 2) Ileus - check 3 way abdo to assure the colonic obstruction has resolved 3) Diet - clears for now pending confirmation of resolution of obstruction and of post-op ileus 4) anticoagulation - recheck PT/INR, Coumadin as per hospitalists will follow 06/29/17 15:46 as above 1) Colonic obstruction - still no flatus or BM, AXR from yesterday shows air lower down then previous so i think she now has an Ileus 2) Ileus - check Mag and Phos replete if needed, off narcotics on toradol 3) Diet - clears for now 4) anticoagulation - as per primary if not moving anything by tomorrow, I will confer with Dr. Chirinos about a possible Gastrografin enema 06/30/17 11:12 as above 1) Ileus - pt states she passed gas today and feels less distended 2) Diet - clears until she passes more gas and even some stool 3) lytes - phosphorus now normal range, I like Mag > 2 and Potassium > 4 in ileus - will replete 4) COPD - she is worried about missing appt with Dr. Muir tomorrow, Dr Brower did stop by and he will arrange a office appt soon Subjective: cc - colonic obstruction s/p lysis of adhesions and now with post-op ileus she states she did pas gas and is less distended worried about missing pulm appt with Dr. Muir Objective: Vital Signs Temp Pulse Resp BP Pulse Ox 36.3 C 73 20 133/57 H 87 L 06/30/17 08:35 06/30/17 10:13 06/30/17 10:13 06/30/17 08:35 06/30/17 10:13 Laboratory Results 06/30/17 04:45 06/30/17 04:45 06/29/17 06/30/17 07/01/17 05:59 05:59 05:59 Intake Total 2250 2100 Output Total 1050 1550 Balance 1200 550 PT 34.6 SEC (12.0-15.0) H 06/30/17 04:45 INR 3.37 (0.83-1.16) H 06/30/17 04:45 A+Ox3 CTA, decreased no rales no rhonchi S1S2 +BS, very minimal, soft tender but no r/g Laboratory Tests 06/29/17 06/30/17 16:33 04:45 Phosphorus 1.4 L 2.5 D Magnesium 1.8 1.8 ICD10 Worksheet Patient Problems: Problems Problem Status Onset Constipation Acute Large bowel obstruction Acute COPD (chronic obstructive pulmonary disease) Acute DVT (deep venous thrombosis) Acute Hypoxia Acute Osteoarthritis of hip Acute Pneumonia Acute chronic disease mgmt/transitional care Acute CAD (coronary atherosclerotic disease) Chronic
[2017-06-30] MEDS ORDERED: MAGNESIUM SULF 1 GM/DEXTROSE 100 ML IV ONE (11:20)
--- NOTE | 2017-06-30 11:29 | HOSPPROG ---
Hospitalist Progress Note Assessment/Plan: # large bowel obstruction/volvulus d/t adhesion POD#3 s/p VIJAY - started on reglan and toradol - ileus improved today # CAD - on asa QD, plavix QOD; stent 5 years ago - cont to hold asa/plavix, restart at some point # DVT - distal calf # anemia - stable # coagulopathy - INR trending up, off warfarin - recheck INR tomorrow # COPD/chronic hypoxic resp failure - spiriva/albuterol; has f/u Dr Muir # pulm nodule - outpatient f/u # dCHF - holding lasix; some LE edema that is chronic # htn - verapamil Subjective: abd feels better, less distended Objective: Vital Signs Temp Pulse Resp BP Pulse Ox 36.3 C 73 20 133/57 H 87 L 06/30/17 08:35 06/30/17 10:13 06/30/17 10:13 06/30/17 08:35 06/30/17 10:13 Laboratory Results 06/30/17 04:45 06/30/17 04:45 06/29/17 06/30/17 07/01/17 05:59 05:59 05:59 Intake Total 2250 2100 Output Total 1050 1550 Balance 1200 550 PT 34.6 SEC (12.0-15.0) H 06/30/17 04:45 INR 3.37 (0.83-1.16) H 06/30/17 04:[address] Gonzalez - Physical Exam Constitutional: no apparent distress Cardiovascular: regular rate and rhythym, no murmur, rub, or gallop Respiratory: no respiratory distress, no rales or rhonchi, clear to auscultation Gastrointestinal: other (faint but clear BS; less distended, less TTP; no masses ) ICD10 Worksheet Patient Problems: Problems Problem Status Onset Constipation Acute Large bowel obstruction Acute chronic disease mgmt/transitional care Acute CAD (coronary atherosclerotic disease) Chronic Osteoarthritis of hip Acute COPD (chronic obstructive pulmonary disease) Acute Hypoxia Acute Pneumonia Acute DVT (deep venous thrombosis) Acute
[2017-06-30] MEDS: POTASSIUM Cl (KCl) 100 ML IV SCH ×2 (13:41→15:16)
--- NOTE | 2017-06-30 14:23 | ASMTCMCOM ---
CM Note CM Note Notes: Reviewed chart and d/w RN. PT recommending HHC. Pt refusing HHC b/c she says she cannot be homebound. Pt lives at home w/son. Pt asking about someone to come and go on walks/hikes with her. She says she is not able to afford private duty home care. I recommended she call [facility] to see if they have volunteers who do this kind of thing; she plans on contacting them. CM available for changes/needs. Date Signed: 06/30/2017 02:23 PM Electronically Signed By:Ansley Bain RN
--- NOTE | 2017-06-30 14:23 | ASMTCMCOM ---
CM Note CM Note Notes: Reviewed chart and d/w RN. PT recommending HHC. Pt refusing HHC b/c she says she cannot be homebound. Pt lives at home w/son. Pt asking about someone to come and go on walks/hikes with her. She says she is not able to afford private duty home care. I recommended she call [facility] to see if they have volunteers who do this kind of thing; she plans on contacting them. CM available for changes/needs. Date Signed: 06/30/2017 02:23 PM Electronically Signed By:Ansley Bain RN
--- NOTE | 2017-06-30 14:23 | ASMTCMCOM ---
CM Note CM Note Notes: Reviewed chart and d/w RN. PT recommending HHC. Pt refusing HHC b/c she says she cannot be homebound. Pt lives at home w/son. Pt asking about someone to come and go on walks/hikes with her. She says she is not able to afford private duty home care. I recommended she call [facility] to see if they have volunteers who do this kind of thing; she plans on contacting them. CM available for changes/needs. Date Signed: 06/30/2017 02:23 PM Electronically Signed By:Ansley Bain RN
[2017-06-30] MEDS: METOCLOPRAMIDE 5 MG TAB PO SCH ×2 (15:15→21:42)
[2017-06-30] MEDS: FLUTICASONE NASAL 120 SPRAYS/16 GM MDI NS SCH (17:21)
[2017-06-30] MEDS: TIOTROPIUM INHALER 18 MCG/DOSE 5 DOSE/MDI IH SCH (21:22)
[2017-06-30] MEDS: IPRATROPIUM/ALBUTEROL 3 ML DEYVIAL IH PRN (21:23)
[2017-06-30] MEDS: PRAVASTATIN SODIUM 20 MG TAB PO SCH (21:42)
[2017-06-30] MEDS: VERAPAMIL ER 180 MG TAB PO SCH (21:42)
[2017-06-30] MEDS: OXYCODONE/APAP 5/325 TAB PO SCH (21:44)
[2017-07-01] MEDS: OXYCODONE/APAP 5/325 TAB PO PRN (03:52)
[2017-07-01 05:29] LABS: INR 3.56 (0.83-1.16); PROTIME(PATIENT) 36.2 SEC (12.0-15.0)
[2017-07-01] MEDS: METOCLOPRAMIDE 5 MG TAB PO SCH ×4 (07:33→20:47)
[2017-07-01] MEDS ORDERED: CLOPIDOGREL BISULFATE 75 MG TAB PO SCH (09:00)
[2017-07-01] MEDS: FLUTICASONE NASAL 120 SPRAYS/16 GM MDI NS SCH (09:04)
[2017-07-01] MEDS: POLYETHYLENE GLYCOL 3350 17 GM PKT PO SCH (09:04)
--- NOTE | 2017-07-01 09:39 | SOAPPROG ---
SOAP Progress Note Assessment/Plan: Assessment:Plan: 1) Ileus - pt states she passed gas today and feels less distended 2) Diet - clears until she passes more gas and even some stool 3) lytes - phosphorus now normal range, I like Mag > 2 and Potassium > 4 in ileus - will replete 4) COPD - she is worried about missing appt with Dr. Muir tomorrow, Dr Brower did stop by and he will arrange a office appt soon 07/01/17 09:34 ABOVE 1) Ileus - I still think it slow to resolve ileus related to surgery and lytes. I like a nml Phos, Mag > 2 and Potassium > 4 pref near 4.5. I will order another [address] AXR to make sure the distal colon/rectum still has air c/w resolved obstruction 2) Lytes - Spoke with Dr. Hernandez who will replete with KPhos and Mag 3) COPD - Dr. Brower came to do social visit and arrange appt following week when discharged, thanks 4) Diet - I would prefer liquid until clearly resolved, she did try some solids and didn't go well will follow 07/01/17 09:42 Subjective: CC- Colonic obstruction now we think Ileus s/p surgery Pt feeling about the same, didn't tolerate PO solids last night says she did pass a little more gas, but no stool yet abdo hurts with cough Objective: Vital Signs Temp Pulse Resp BP Pulse Ox 37.1 C 82 16 148/66 H 92 07/01/17 08:00 07/01/17 08:00 07/01/17 08:00 07/01/17 08:00 07/01/17 08:00 Laboratory Results 06/30/17 04:45 07/01/17 04:39 06/30/17 07/01/17 07/02/17 05:59 05:59 05:59 Intake Total 2100 1650 Output Total 1550 650 Balance 550 1000 PT 36.2 SEC (12.0-15.0) H 07/01/17 04:39 INR 3.56 (0.83-1.16) H 07/01/17 04:39 A+Ox3 CTA but decreased, no rhonchi S1S2, RRR +Bs, very decreased, I don't appreciate and high pitch tinkles, tender no rebound ICD10 Worksheet Patient Problems: Problems Problem Status Onset Constipation Acute Large bowel obstruction Acute COPD (chronic obstructive pulmonary disease) Acute DVT (deep venous thrombosis) Acute Hypoxia Acute Osteoarthritis of hip Acute Pneumonia Acute chronic disease mgmt/transitional care Acute CAD (coronary atherosclerotic disease) Chronic
[2017-07-01] MEDS ORDERED: POTASSIUM CL 20 MEQ TAB PO ONE ×2 (10:32→13:45)
[2017-07-01] MEDS ORDERED: K PHOS 10 MMOL in D5W 250 ML IV ONE (10:33)
[2017-07-01] MEDS ORDERED: MAGNESIUM SULF 1 GM/DEXTROSE 100 ML IV ONE ×2 (10:33→17:45)
--- NOTE | 2017-07-01 10:45 | HOSPPROG ---
Hospitalist Progress Note Assessment/Plan: # large bowel obstruction d/t adhesion POD#4 s/p VIJAY - started on reglan and toradol - still has an ongoing ileus - correct electrolytes # CAD - on asa QD, plavix QOD; stent 5 years ago - restart plavix today # DVT - distal calf - INR elevated # anemia - stable # coagulopathy - better but INR still elevated # COPD/chronic hypoxic resp failure - spiriva/albuterol; has f/u Dr Muir # pulm nodule - outpatient f/u # dCHF - holding lasix; some LE edema that is chronic # htn - verapamil Subjective: ongoing abd [ain; felt like she was having a panic attack last night Objective: Vital Signs Temp Pulse Resp BP Pulse Ox 37.1 C 82 16 148/66 H 92 07/01/17 08:00 07/01/17 08:00 07/01/17 08:00 07/01/17 08:00 07/01/17 08:00 Laboratory Results 06/30/17 04:45 07/01/17 04:39 06/30/17 07/01/17 07/02/17 05:59 05:59 05:59 Intake Total 2100 1650 Output Total 1550 650 Balance 550 1000 PT 36.2 SEC (12.0-15.0) H 07/01/17 04:39 INR 3.56 (0.83-1.16) H 07/01/17 04:[address] Carlos PHAM reviewed - Physical Exam Constitutional: no apparent distress, appears nourished Cardiovascular: regular rate and rhythym, no murmur, rub, or gallop Respiratory: no respiratory distress, no rales or rhonchi Gastrointestinal: normoactive bowel sounds, soft, non-tender abdomen, no palpable masses ICD10 Worksheet Patient Problems: Problems Problem Status Onset Constipation Acute Large bowel obstruction Acute chronic disease mgmt/transitional care Acute CAD (coronary atherosclerotic disease) Chronic Osteoarthritis of hip Acute COPD (chronic obstructive pulmonary disease) Acute Hypoxia Acute Pneumonia Acute DVT (deep venous thrombosis) Acute
--- NOTE | 2017-07-01 12:31 | SOAPPROG ---
[facility] Progress Note Assessment/Plan: Assessment\Plan: 81yo F s/p ex-lap, adhesiolysis for LBO - Her abdomen remains distended, she is still passing some flatus but no BM, she is now belching - Reviewed KUB, lot of air in colon, really nonspecific pattern in small bowel. Doesnt look like sim ileus or SBO. - Will back diet back down to sips of clears - Wonder if she would benefit from SBFT just to clear things out versus finding pathology but doesnt look like a colon issue given how decompressed the colon looks 06/27/17 12:16 06/28/17 09:05 06/29/17 12:41 07/01/17 12:31 Subjective: wishes she was at home Objective: Vital Signs Temp Pulse Resp BP Pulse Ox 37.1 C 82 16 148/66 H 92 07/01/17 08:00 07/01/17 08:00 07/01/17 08:00 07/01/17 08:00 07/01/17 08:00 Laboratory Results 06/30/17 04:45 07/01/17 04:39 06/30/17 07/01/17 07/02/17 05:59 05:59 05:59 Intake Total 2100 1650 Output Total 1550 650 Balance 550 1000 PT 36.2 SEC (12.0-15.0) H 07/01/17 04:39 INR 3.56 (0.83-1.16) H 07/01/17 04:39 ICD10 Worksheet Patient Problems: Problems Problem Status Onset Constipation Acute Large bowel obstruction Acute COPD (chronic obstructive pulmonary disease) Acute DVT (deep venous thrombosis) Acute Hypoxia Acute Osteoarthritis of hip Acute Pneumonia Acute chronic disease mgmt/transitional care Acute CAD (coronary atherosclerotic disease) Chronic
[2017-07-01] MEDS: OXYCODONE/APAP 5/325 TAB PO SCH ×2 (15:51→22:59)
[2017-07-01] MEDS: ALBUTEROL 3 ML DEYVIAL IH PRN (16:52)
[2017-07-01] MEDS: CALCIUM CARBONATE 500 MG CHEWABLE TAB PO PRN (17:43)
[2017-07-01] MEDS ORDERED: ALBUTEROL 3 ML DEYVIAL IH SCH (20:00)
[2017-07-01] MEDS: PRAVASTATIN SODIUM 20 MG TAB PO SCH (20:47)
[2017-07-01] MEDS: VERAPAMIL ER 180 MG TAB PO SCH (20:47)
[2017-07-01] MEDS ORDERED: IPRATROPIUM/ALBUTEROL 3 ML DEYVIAL IH SCH (21:00)
[2017-07-01] MEDS: TIOTROPIUM INHALER 18 MCG/DOSE 5 DOSE/MDI IH SCH (21:37)
[2017-07-01] MEDS: ALBUTEROL 200 PUFFS/18 GM MDI IH PRN (21:37)
[2017-07-01] MEDS ORDERED: IPRATROPIUM/ALBUTEROL 3 ML DEYVIAL ONE (22:25)
[2017-07-01] MEDS: IPRATROPIUM/ALBUTEROL 3 ML DEYVIAL IH SCH (22:53)
[2017-07-01] MEDS: LORazepam 1 MG TAB PO PRN (22:58)
[2017-07-02 05:55] LABS: INR 2.95 (0.83-1.16); PROTIME(PATIENT) 31.1 SEC (12.0-15.0)
[2017-07-02] MEDS: METOCLOPRAMIDE 5 MG TAB PO SCH ×2 (06:05→12:07)
[2017-07-02] MEDS: POLYETHYLENE GLYCOL 3350 17 GM PKT PO SCH (09:02)
[2017-07-02] MEDS: FLUTICASONE NASAL 120 SPRAYS/16 GM MDI NS SCH (09:02)
[2017-07-02] MEDS: IPRATROPIUM/ALBUTEROL 3 ML DEYVIAL IH SCH ×2 (09:29→11:02)
--- NOTE | 2017-07-02 10:33 | HOSPPROG ---
Hospitalist Progress Note Assessment/Plan: # large bowel obstruction d/t adhesion POD#5 s/p VIJAY - started on reglan and toradol - still has an ongoing ileus - correct electrolytes - consider SBFT vs CT today # CAD - on asa QD, plavix QOD; stent 5 years ago - plavix restarted # DVT - distal calf - INR elevated but coming down - warf 1mg today # anemia - stable # coagulopathy - better after vit k and FFP # COPD/chronic hypoxic resp failure - spiriva/albuterol/nebs has f/u Dr Muir # pulm nodule - outpatient f/u # dCHF - holding lasix; some LE edema that is chronic # htn - verapamil Subjective: some flatus, ongoing abd distension; no BM Objective: Vital Signs Temp Pulse Resp BP Pulse Ox 36.5 C 75 16 122/52 H 94 07/02/17 07:40 07/02/17 09:30 07/02/17 09:30 07/02/17 07:40 07/02/17 09:55 Laboratory Results 06/30/17 04:45 07/02/17 05:30 07/01/17 07/02/17 07/03/17 05:59 05:59 05:59 Intake Total 1650 825 Output Total 650 1350 Balance 1000 -525 PT 31.1 SEC (12.0-15.0) H 07/02/17 05:30 INR 2.95 (0.83-1.16) H 07/02/17 05:30 - Physical Exam Constitutional: no apparent distress, appears nourished Cardiovascular: regular rate and rhythym, no murmur, rub, or gallop Respiratory: no respiratory distress, no rales or rhonchi, clear to auscultation Gastrointestinal: other (diminished BS; distended, TTP diffusely), No guarding, No rebound ICD10 Worksheet Patient Problems: Problems Problem Status Onset Constipation Acute Large bowel obstruction Acute chronic disease mgmt/transitional care Acute CAD (coronary atherosclerotic disease) Chronic Osteoarthritis of hip Acute COPD (chronic obstructive pulmonary disease) Acute Hypoxia Acute Pneumonia Acute DVT (deep venous thrombosis) Acute
--- NOTE | 2017-07-02 11:25 | SOAPPROG ---
[facility]AB Progress Note Assessment/Plan: Assessment\Plan: 81yo F s/p ex-lap, adhesiolysis for LBO - Her abdomen remains distended, she is still passing some flatus but no BM, which is the same as yesterday - Discussed with Carlos, will get gastrografin enema to ensure that colon is patent, there is air throughout so ostensibly it is open. - If colon is open, then this is likely primarily a small bowel issue which is likely an ileus. 06/27/17 12:16 06/28/17 09:05 06/29/17 12:41 07/01/17 12:31 07/02/17 11:23 Subjective: still distended Objective: Vital Signs Temp Pulse Resp BP Pulse Ox 36.5 C 84 18 122/52 H 97 07/02/17 07:40 07/02/17 11:03 07/02/17 11:03 07/02/17 07:40 07/02/17 11:03 Laboratory Results 06/30/17 04:45 07/02/17 05:30 07/01/17 07/02/17 07/03/17 05:59 05:59 05:59 Intake Total 1650 825 Output Total 650 1350 900 Balance 1000 -525 -900 PT 31.1 SEC (12.0-15.0) H 07/02/17 05:30 INR 2.95 (0.83-1.16) H 07/02/17 05:30 ICD10 Worksheet Patient Problems: Problems Problem Status Onset Constipation Acute Large bowel obstruction Acute COPD (chronic obstructive pulmonary disease) Acute DVT (deep venous thrombosis) Acute Hypoxia Acute Osteoarthritis of hip Acute Pneumonia Acute chronic disease mgmt/transitional care Acute CAD (coronary atherosclerotic disease) Chronic
--- NOTE | 2017-07-02 11:29 | SOAPPROG ---
[facility] Progress Note Assessment/Plan: Assessment:Plan: ABOVE 1) Ileus - I still think it slow to resolve ileus related to surgery and lytes. I like a nml Phos, Mag > 2 and Potassium > 4 pref near 4.5. I will order another [address] way AXR to make sure the distal colon/rectum still has air c/w resolved obstruction 2) Lytes - Spoke with Dr. Hernandez who will replete with KPhos and Mag 3) COPD - Dr. Brower came to do social visit and arrange appt following week when discharged, thanks 4) Diet - I would prefer liquid until clearly resolved, she did try some solids and didn't go well will follow 07/01/17 09:42 07/02/17 11:03 1) Ileus - I still think Ileus, will order gastrograffin enema to confirm resolution of colonic obstruction and ileus as cause of her sx's now 2) Lytes - will replete potassium up to 4.5, mag and phos are ok 3) diet - clears for now Dr Gutierrez to pick up driver intp service at 5pm Subjective: CC- Ileus vs colonic obstruction Pt still passing a little gas but not enough o be entirely convince her colon is wide open Abdo distended and still with some tenderness Objective: Vital Signs Temp Pulse Resp BP Pulse Ox 36.5 C 75 16 122/52 H 94 07/02/17 07:40 07/02/17 09:30 07/02/17 09:30 07/02/17 07:40 07/02/17 09:55 Laboratory Results 06/30/17 04:45 07/02/17 05:30 07/01/17 07/02/17 07/03/17 05:59 05:59 05:59 Intake Total 1650 825 Output Total 650 1350 900 Balance 1000 -525 -900 PT 31.1 SEC (12.0-15.0) H 07/02/17 05:30 INR 2.95 (0.83-1.16) H 07/02/17 05:30 A+Ox3 CTA I don't not appreciate any rhonchi S1S2 +BS, decreased freq occ high pitch, present in all 4 quads Laboratory Tests 06/29/17 06/30/17 07/01/17 16:33 04:45 04:39 Potassium 3.5 3.4 L 3.8 Phosphorus 1.4 L 2.5 D 2.0 L Magnesium 1.8 1.8 1.7 07/02/17 05:30 Potassium Phosphorus 2.9 D Magnesium 1.9 ICD10 Worksheet Patient Problems: Problems Problem Status Onset Constipation Acute Large bowel obstruction Acute COPD (chronic obstructive pulmonary disease) Acute DVT (deep venous thrombosis) Acute Hypoxia Acute Osteoarthritis of hip Acute Pneumonia Acute chronic disease mgmt/transitional care Acute CAD (coronary atherosclerotic disease) Chronic
[2017-07-02] MEDS: OXYCODONE/APAP 5/325 TAB PO PRN (12:11)
[2017-07-02] MEDS ORDERED: WARFARIN SODIUM 1 MG TAB PO ONE (16:00)
[2017-07-02] MEDS: OXYCODONE/APAP 5/325 TAB PO SCH ×2 (16:42→21:20)
[2017-07-02] MEDS: VERAPAMIL ER 180 MG TAB PO SCH (21:09)
[2017-07-02] MEDS: PRAVASTATIN SODIUM 20 MG TAB PO SCH (21:09)
[2017-07-02] MEDS: LORazepam 1 MG TAB PO PRN (21:20)
[2017-07-02] MEDS: IPRATROPIUM/ALBUTEROL 3 ML DEYVIAL IH PRN (21:47)
[2017-07-02] MEDS: TIOTROPIUM INHALER 18 MCG/DOSE 5 DOSE/MDI IH SCH (21:48)
[2017-07-03 05:16] LABS: PLATELET COUNT 261 10^3/uL (150-400)
[2017-07-03 05:26] LABS: INR 3.31 (0.83-1.16); PROTIME(PATIENT) 34.1 SEC (12.0-15.0)
[2017-07-03] MEDS: IPRATROPIUM/ALBUTEROL 3 ML DEYVIAL IH SCH ×2 (08:43→20:29)
[2017-07-03] MEDS: POLYETHYLENE GLYCOL 3350 17 GM PKT PO SCH (09:34)
[2017-07-03] MEDS: FLUTICASONE NASAL 120 SPRAYS/16 GM MDI NS SCH (09:34)
[2017-07-03] MEDS: CLOPIDOGREL BISULFATE 75 MG TAB PO SCH (09:34)
--- NOTE | 2017-07-03 11:08 | SOAPPROG ---
SOAP Progress Note Assessment/Plan: Assessment: 81yo F POD#5 s/p ex-lap with lysis of adhesion in pelvis causing sigmoid obstruction Pain controlled Barium enema yesterday without colon obstruction. Still no flatus, BM SBFT today to evaluate for SBO Regular diet. Back off to clears if worsening n/v/d Encouraged ambulation, IS Dispo: awaiting return of bowel function. appreciate GI and hospitalists. Discussed with Dr. Linn S: feeling well. wants to go home soon. tolerating regular diet with n/v. still very distended but improving. no flatus today. no BM O: Sitting upright in bed eating breakfast, comfortable, no acute distress No increased work of breathing Absent bowel sounds, distended, but soft and nontender. Midline dressing intact Objective: Vital Signs Temp Pulse Resp BP Pulse Ox 36.4 C 85 16 133/58 H 95 07/03/17 08:55 07/03/17 08:55 07/03/17 08:55 07/03/17 08:55 07/03/17 08:55 Laboratory Results 07/03/17 04:32 07/03/17 04:32 07/02/17 07/03/17 07/04/17 05:59 05:59 05:59 Intake Total 825 300 Output Total 1350 900 Balance -525 -600 PT 34.1 SEC (12.0-15.0) H 07/03/17 04:32 INR 3.31 (0.83-1.16) H 07/03/17 04:32 ICD10 Worksheet Patient Problems: Problems Problem Status Onset Constipation Acute Large bowel obstruction Acute COPD (chronic obstructive pulmonary disease) Acute DVT (deep venous thrombosis) Acute Hypoxia Acute Osteoarthritis of hip Acute Pneumonia Acute chronic disease mgmt/transitional care Acute CAD (coronary atherosclerotic disease) Chronic
[2017-07-03] MEDS: OXYCODONE/APAP 5/325 TAB PO PRN ×2 (11:56→18:52)
--- NOTE | 2017-07-03 12:03 | SOAPPROG ---
SOAP Progress Note Assessment/Plan: Assessment: 1. Bowel obstruction with slow return of bowel function. 2. COPD. Plan: 1. SBFT today. 2. Will follow with you. Troy Gutierrez MD 07/03/17 12:00 Subjective: CC: Bowel cobstruction/ileus. S/P adhesiolysis. Interval HPI: Patient without nausea. Tolerated po clears. Now NPO for SBFT today. Objective: Vital Signs Temp Pulse Resp BP Pulse Ox 36.4 C 85 16 133/58 H 95 07/03/17 08:55 07/03/17 08:55 07/03/17 08:55 07/03/17 08:55 07/03/17 08:55 Laboratory Results 07/03/17 04:32 07/03/17 04:32 07/02/17 07/03/17 07/04/17 05:59 05:59 05:59 Intake Total 825 300 Output Total 1350 900 Balance -525 -600 PT 34.1 SEC (12.0-15.0) H 07/03/17 04:32 INR 3.31 (0.83-1.16) H 07/03/17 04:32 Physical Exam - Physical Exam General Appearance: WD/WN, alert, no apparent distress Respiratory: lungs clear, prolonged expiration, other (distant breath sounds.) Cardiac/Chest: normal peripheral pulses, regular rate, rhythm Abdomen: non-tender, soft (quiet BS.) Skin: normal color, warm/dry Extremities: normal range of motion Neuro/Psych: alert, normal mood/affect, oriented x 3 ICD10 Worksheet Patient Problems: Problems Problem Status Onset Constipation Acute Large bowel obstruction Acute COPD (chronic obstructive pulmonary disease) Acute DVT (deep venous thrombosis) Acute Hypoxia Acute Osteoarthritis of hip Acute Pneumonia Acute chronic disease mgmt/transitional care Acute CAD (coronary atherosclerotic disease) Chronic
[2017-07-03] MEDS ORDERED: FUROSEMIDE 40 MG/4 ML VIAL IVP ONE (14:29)
--- NOTE | 2017-07-03 14:33 | HOSPPROG ---
Hospitalist Progress Note Assessment/Plan: # large bowel obstruction d/t adhesion POD#6 s/p VIAJY - started on reglan and toradol - still has an ongoing ileus - SBFT today # CAD - on asa QD, plavix QOD; stent 5 years ago - plavix restarted # DVT - distal calf - continue warfarin - goal INR 2-3 # anemia - stable # coagulopathy - better after vit k and FFP # COPD/chronic hypoxic resp failure - spiriva/albuterol/nebs has f/u Dr Muir # pulm nodule - outpatient f/u # dCHF - restart lasix # htn - verapamil Subjective: no flatus or BM Objective: Vital Signs Temp Pulse Resp BP Pulse Ox 36.4 C 85 16 133/58 H 95 07/03/17 08:55 07/03/17 08:55 07/03/17 08:55 07/03/17 08:55 07/03/17 08:55 Laboratory Results 07/03/17 04:32 07/03/17 04:32 07/02/17 07/03/17 07/04/17 05:59 05:59 05:59 Intake Total 825 300 Output Total 1350 900 Balance -525 -600 PT 34.1 SEC (12.0-15.0) H 07/03/17 04:32 INR 3.31 (0.83-1.16) H 07/03/17 04:32 AXR viewed, my personal interpretation is - ileus Barium enema - no mass - Physical Exam Constitutional: no apparent distress, appears nourished, not in pain Cardiovascular: regular rate and rhythym, no murmur, rub, or gallop, edema (3+) Respiratory: no respiratory distress, no rales or rhonchi, clear to auscultation Gastrointestinal: normoactive bowel sounds, soft, non-tender abdomen, no palpable masses Skin: no rashes or abrasions, no fluctuance, no induration Neurologic: AAOx3, sensation intact bilaterally Psychiatric: interacting appropriately, not anxious, not encephalopathic, thought process linear ICD10 Worksheet Patient Problems: Problems Problem Status Onset Constipation Acute Large bowel obstruction Acute COPD (chronic obstructive pulmonary disease) Acute DVT (deep venous thrombosis) Acute Hypoxia Acute Osteoarthritis of hip Acute Pneumonia Acute chronic disease mgmt/transitional care Acute CAD (coronary atherosclerotic disease) Chronic
[2017-07-03] MEDS: ONDANSETRON 4 MG/2 ML VIAL IVP PRN (15:30)
[2017-07-03] MEDS: FUROSEMIDE 20 MG TAB PO SCH (15:47)
[2017-07-03] MEDS: CALCIUM CARBONATE 500 MG CHEWABLE TAB PO PRN ×2 (20:05→22:53)
[2017-07-03] MEDS: PRAVASTATIN SODIUM 20 MG TAB PO SCH (20:06)
[2017-07-03] MEDS: VERAPAMIL ER 180 MG TAB PO SCH (20:07)
[2017-07-03] MEDS: OXYCODONE/APAP 5/325 TAB PO SCH (20:08)
[2017-07-03] MEDS: TIOTROPIUM INHALER 18 MCG/DOSE 5 DOSE/MDI IH SCH (20:29)
[2017-07-03] MEDS: LORazepam 1 MG TAB PO PRN (22:53)
[2017-07-04] MEDS: ONDANSETRON 4 MG/2 ML VIAL IVP PRN ×4 (00:31→21:25)
[2017-07-04 05:32] LABS: INR 2.97 (0.83-1.16); PROTIME(PATIENT) 31.3 SEC (12.0-15.0)
[2017-07-04] MEDS: HYDROmorphONE/DILAUDID 1 MG/ML INJ IVP PRN ×4 (08:22→23:59)
[2017-07-04] MEDS: IPRATROPIUM/ALBUTEROL 3 ML DEYVIAL IH SCH ×2 (09:26→20:22)
--- NOTE | 2017-07-04 10:13 | SOAPPROG ---
SOAP Progress Note Assessment/Plan: Assessment: 1. Bowel obstruction with slow return of bowel function. Liquid BM this morning however still with nausea and abdominal distension/discomfort. 2. COPD. Plan: 1. KUB today. 2. Will follow with you. Tryo Gutierrez MD 07/04/17 10:10 Subjective: CC: Bowel obstruction. Interval HPI: Patient did not get dSBFT performed yesterday as too much contrast in gut on KUB. She did have large liquid BM this am however still has nausea and abdominal distension and discomfort. Objective: Vital Signs Temp Pulse Resp BP Pulse Ox 37.1 C 110 H 16 132/82 H 91 L 07/04/17 08:35 07/04/17 09:30 07/04/17 09:30 07/04/17 08:35 07/04/17 09:30 Laboratory Results 07/03/17 04:32 07/04/17 05:06 07/03/17 07/04/17 07/05/17 05:59 05:59 05:59 Intake Total 300 400 Output Total 900 Balance -600 400 PT 31.3 SEC (12.0-15.0) H 07/04/17 05:06 INR 2.97 (0.83-1.16) H 07/04/17 05:06 Physical Exam - Physical Exam General Appearance: alert, moderate distress Respiratory: other (Decreased breath sounds bilaterally.) Abdomen: distended, other (mildly tender to palpation.) Skin: warm/dry Neuro/Psych: alert, oriented x 3 ICD10 Worksheet Patient Problems: Problems Problem Status Onset Constipation Acute Large bowel obstruction Acute COPD (chronic obstructive pulmonary disease) Acute DVT (deep venous thrombosis) Acute Hypoxia Acute Osteoarthritis of hip Acute Pneumonia Acute chronic disease mgmt/transitional care Acute CAD (coronary atherosclerotic disease) Chronic
[2017-07-04] MEDS: FUROSEMIDE 20 MG TAB PO SCH (11:30)
[2017-07-04] MEDS: POLYETHYLENE GLYCOL 3350 17 GM PKT PO SCH (11:34)
[2017-07-04] MEDS: FLUTICASONE NASAL 120 SPRAYS/16 GM MDI NS SCH (11:34)
--- NOTE | 2017-07-04 11:34 | SOAPPROG ---
SOAP Progress Note Assessment/Plan: Assessment: 81yo F POD#6 s/p ex-lap with lysis of adhesion in pelvis causing sigmoid obstruction Pain controlled Barium enema without colon obstruction. SBFT planend for today, but patient adamantly refusing. She would like to have this done tomorrow Light diet. NPO after midnight for SBFT Encouraged ambulation, IS Dispo: awaiting return of bowel function. appreciate GI and hospitalists. Discussed with Dr. Linn S: She feels significantly more nauseated this morning. says she is miserable. Had a large bowel movement this morning, mostly contrast, and is passing flatus O: laying in bed, comfortable, no acute distress No increased work of breathing Hypoactive bowel sounds, distended, but soft and nontender. Midline incision CDI, willi intact Objective: Vital Signs Temp Pulse Resp BP Pulse Ox 37.1 C 110 H 16 132/82 H 91 L 07/04/17 08:35 07/04/17 09:30 07/04/17 09:30 07/04/17 08:35 07/04/17 09:30 Laboratory Results 07/03/17 04:32 07/04/17 05:06 07/03/17 07/04/17 07/05/17 05:59 05:59 05:59 Intake Total 300 400 Output Total 900 Balance -600 400 PT 31.3 SEC (12.0-15.0) H 07/04/17 05:06 INR 2.97 (0.83-1.16) H 07/04/17 05:06 ICD10 Worksheet Patient Problems: Problems Problem Status Onset Constipation Acute Large bowel obstruction Acute COPD (chronic obstructive pulmonary disease) Acute DVT (deep venous thrombosis) Acute Hypoxia Acute Osteoarthritis of hip Acute Pneumonia Acute chronic disease mgmt/transitional care Acute CAD (coronary atherosclerotic disease) Chronic
[2017-07-04] MEDS ORDERED: FUROSEMIDE 40 MG/4 ML VIAL IVP ONE (14:47)
--- NOTE | 2017-07-04 14:52 | HOSPPROG ---
Hospitalist Progress Note Assessment/Plan: * Large bowel obstruction due to adhesions s/p VIJAY -barium enema - no colonic mass * Post op ileus - slow to resolve -SBFT in am * Acute respiratory failure - suspect pulmonary edema -IV lasix * Acute on chronic diastolic CHF * CAD/stent -Plavix * DVT -warfarin - goal INR 2-3 * COPD -Spiriva * Pulmonary nodule -follow-up CT chest 1 year * HTN - verapamil Subjective: Bad day, SOB, increased abd distention Objective: Vital Signs Temp Pulse Resp BP Pulse Ox 37.1 C 110 H 16 132/82 H 91 L 07/04/17 08:35 07/04/17 09:30 07/04/17 09:30 07/04/17 08:35 07/04/17 09:30 Laboratory Results 07/03/17 04:32 07/04/17 05:06 07/03/17 07/04/17 07/05/17 05:59 05:59 05:59 Intake Total 300 400 Output Total 900 Balance -600 400 PT 31.3 SEC (12.0-15.0) H 07/04/17 05:06 INR 2.97 (0.83-1.16) H 07/04/17 05:06 cxr viewed, my personal interpretation is - flat diaphragm, pulmonary edema d/w dr. mukherjee - KUB ordered KUB - gastrograffin cleared - Physical Exam Constitutional: uncomfortable, unkempt, No not in pain, No obese Cardiovascular: regular rate and rhythym, no murmur, rub, or gallop Respiratory: respiratory distress, No no respiratory distress, No expiratory wheeze, No inspiratory crackles Gastrointestinal: distension, No tenderness, No ascites, No guarding, No rebound Skin: no rashes or abrasions, no fluctuance, no induration Neurologic: AAOx3, sensation intact bilaterally Psychiatric: interacting appropriately, not encephalopathic, thought process linear, anxious ICD10 Worksheet Patient Problems: Problems Problem Status Onset Constipation Acute Large bowel obstruction Acute COPD (chronic obstructive pulmonary disease) Acute DVT (deep venous thrombosis) Acute Hypoxia Acute Osteoarthritis of hip Acute Pneumonia Acute chronic disease mgmt/transitional care Acute CAD (coronary atherosclerotic disease) Chronic
[2017-07-04] MEDS: FUROSEMIDE 20 MG/2 ML VIAL IVP SCH (15:32)
[2017-07-04] MEDS: METOCLOPRAMIDE 10 MG/2 ML VIAL IVP PRN (15:35)
[2017-07-04] MEDS ORDERED: WARFARIN SODIUM 1 MG TAB PO ONE (16:00)
--- NOTE | 2017-07-04 16:25 | ASMTCMCOM ---
CM Note CM Note Notes: Per hospitalist's note, pt had a "bad" day today with SOB and increased abdominal distention. She refused PT today and has refused homecare. The d/c plan is still home with no CM needs but will continue to assess for any change in d/c needs. Date Signed: 07/04/2017 04:24 PM Electronically Signed By:RICHARD Damico
[2017-07-04] MEDS: OXYCODONE/APAP 5/325 TAB PO PRN (16:54)
[2017-07-04] MEDS: PROMETHAZINE HCL 25 MG/ML INJ IVP PRN (18:17)
[2017-07-04] MEDS: TIOTROPIUM INHALER 18 MCG/DOSE 5 DOSE/MDI IH SCH (20:22)
[2017-07-04] MEDS: OXYCODONE/APAP 5/325 TAB PO SCH (21:20)
[2017-07-04] MEDS: VERAPAMIL ER 180 MG TAB PO SCH (21:22)
[2017-07-04] MEDS: PRAVASTATIN SODIUM 20 MG TAB PO SCH (22:14)
[2017-07-04] MEDS: LORazepam 1 MG TAB PO PRN (23:58)
[2017-07-05] MEDS: PROMETHAZINE HCL 25 MG/ML INJ IVP PRN ×3 (00:10→15:45)
[2017-07-05] MEDS: ONDANSETRON 4 MG/2 ML VIAL IVP PRN ×3 (02:26→15:45)
[2017-07-05] MEDS: OXYCODONE/APAP 5/325 TAB PO PRN ×2 (02:26→08:24)
[2017-07-05 04:32] LABS: PLATELET COUNT 477 10^3/uL (150-400)
[2017-07-05 04:41] LABS: INR 3.42 (0.83-1.16)
[2017-07-05] MEDS: HYDROmorphONE/DILAUDID 1 MG/ML INJ IVP PRN (05:38)
[2017-07-05] MEDS: METOCLOPRAMIDE 10 MG/2 ML VIAL IVP PRN (05:38)
[2017-07-05] MEDS: FUROSEMIDE 20 MG/2 ML VIAL IVP SCH ×2 (08:23→15:45)
[2017-07-05] MEDS: CLOPIDOGREL BISULFATE 75 MG TAB PO SCH ×2 (08:23→10:12)
[2017-07-05] MEDS: POLYETHYLENE GLYCOL 3350 17 GM PKT PO SCH (08:24)
[2017-07-05] MEDS: IPRATROPIUM/ALBUTEROL 3 ML DEYVIAL IH SCH ×2 (09:03→20:07)
[2017-07-05] MEDS: FLUTICASONE NASAL 120 SPRAYS/16 GM MDI NS SCH (10:09)
--- NOTE | 2017-07-05 12:40 | SOAPPROG ---
SOAP Progress Note Assessment/Plan: Assessment: 1. Bowel obstruction with slow return of bowel function. Moderately dilated colon in right pelvis albeit no small bowel dilation. Still with nausea and abdominal distension/discomfort. 2. COPD. ? pneumonia. Plan: 1. KUB in am; patient refusing dSBFT. 2. Surgical service to consider NG tube to suction. Troy Gutierrez MD 07/05/17 12:37 Subjective: CC: Continued nausea and vomiting and abdominal distension without improvement in 48 hours. Patient declining dSBFT due to nausea and vomiting. Patient very depressed. Objective: Vital Signs Temp Pulse Resp BP Pulse Ox 36.2 C 90 18 150/69 H 95 07/05/17 09:00 07/05/17 09:05 07/05/17 09:05 07/05/17 09:00 07/05/17 09:05 Laboratory Results 07/05/17 04:20 07/05/17 04:20 07/04/17 07/05/17 07/06/17 05:59 05:59 05:59 Intake Total 400 500 Output Total 450 Balance 400 50 PT 35.0 SEC (12.0-15.0) H 07/05/17 04:20 INR 3.42 (0.83-1.16) H 07/05/17 04:20 Physical Exam - Physical Exam General Appearance: alert, moderate distress Respiratory: lungs clear, normal breath sounds, prolonged expiration Abdomen: distended (mildly tender.) Neuro/Psych: alert, oriented x 3, depressed affect ICD10 Worksheet Patient Problems: Problems Problem Status Onset Constipation Acute Large bowel obstruction Acute COPD (chronic obstructive pulmonary disease) Acute DVT (deep venous thrombosis) Acute Hypoxia Acute Osteoarthritis of hip Acute Pneumonia Acute chronic disease mgmt/transitional care Acute CAD (coronary atherosclerotic disease) Chronic
[2017-07-05] MEDS ORDERED: IOPAMIDOL (ISOVUE-300) 100 ML BTL ONE (13:14)
--- NOTE | 2017-07-05 16:20 | HOSPPROG ---
Hospitalist Progress Note Assessment/Plan: * Large bowel obstruction due to adhesions s/p VIJAY -barium enema - no colonic mass * Partial SBO jejunum -NPO, surgery following -severe N/V despite Zofran/phenergan -attempted NGT - she immediately pulled it out * Aspiration PNA -IV Invanz * Acute on chronic diastolic CHF * CAD/stent -Plavix * DVT -warfarin - goal INR 2-3 * COPD -Spiriva * Pulmonary nodule -follow-up CT chest 1 year * HTN - verapamil Subjective: Miserable, bowel distention, N/V through Zofran/phenergan, agreed to NGT but then didn't tolerate it pulled it out, followed by massive emesis Objective: Vital Signs Temp Pulse Resp BP Pulse Ox 36.2 C 90 18 150/69 H 95 07/05/17 09:00 07/05/17 09:05 07/05/17 09:05 07/05/17 09:00 07/05/17 09:05 Laboratory Results 07/05/17 04:20 07/05/17 04:20 07/04/17 07/05/17 07/06/17 05:59 05:59 05:59 Intake Total 400 500 Output Total 450 Balance 400 50 PT 35.0 SEC (12.0-15.0) H 07/05/17 04:20 INR 3.42 (0.83-1.16) H 07/05/17 04:20 AXR viewed, my personal interpretation is - no free air CT abd pelvis - partial SBO, aspiration PNA message left with Dr. Ruiz service regarding CT - Physical Exam Constitutional: no apparent distress, appears nourished, not in pain Cardiovascular: regular rate and rhythym, no murmur, rub, or gallop Respiratory: no respiratory distress, no rales or rhonchi, clear to auscultation Gastrointestinal: soft, non-tender abdomen, distension, No ascites, No guarding , No rebound Skin: no rashes or abrasions, no fluctuance, no induration Neurologic: AAOx3, sensation intact bilaterally Psychiatric: interacting appropriately, not anxious, not encephalopathic, thought process linear ICD10 Worksheet Patient Problems: Problems Problem Status Onset Constipation Acute Large bowel obstruction Acute COPD (chronic obstructive pulmonary disease) Acute DVT (deep venous thrombosis) Acute Hypoxia Acute Osteoarthritis of hip Acute Pneumonia Acute chronic disease [facility]/transitional care Acute CAD (coronary atherosclerotic disease) Chronic
--- NOTE | 2017-07-05 16:23 | SOAPPROG ---
SOAP Progress Note Assessment/Plan: Assessment: 81yo F POD#7 s/p ex-lap with lysis of adhesion in pelvis causing sigmoid obstruction Barium enema without colon obstruction. Worsening nausea and vomiting today. patient refused SBFT. Xray and CT abd today. Recommended NG tube but patient refusing saying she "won't tolerate it". NPO due to worsening nausea/vomiting Encouraged ambulation, IS Dispo: awaiting return of bowel function. appreciate GI and hospitalists. Discussed with Dr. Ruiz S: Worsening nausea and vomiting today. Feels terrible. Abdomen still very distended. O: sitting at edge of bed, appears acutely ill, son at bedside No increased work of breathing Hypoactive bowel sounds, distended, but soft and nontender. Midline incision CDI, willi intact 07/05/17 16:58 Objective: Vital Signs Temp Pulse Resp BP Pulse Ox 36.2 C 90 18 150/69 H 95 07/05/17 09:00 07/05/17 09:05 07/05/17 09:05 07/05/17 09:00 07/05/17 09:05 Laboratory Results 07/05/17 04:20 07/05/17 04:20 07/04/17 07/05/17 07/06/17 05:59 05:59 05:59 Intake Total 400 500 Output Total 450 Balance 400 50 PT 35.0 SEC (12.0-15.0) H 07/05/17 04:20 INR 3.42 (0.83-1.16) H 07/05/17 04:20 ICD10 Worksheet Patient Problems: Problems Problem Status Onset Constipation Acute Large bowel obstruction Acute COPD (chronic obstructive pulmonary disease) Acute DVT (deep venous thrombosis) Acute Hypoxia Acute Osteoarthritis of hip Acute Pneumonia Acute chronic disease mgmt/transitional care Acute CAD (coronary atherosclerotic disease) Chronic
[2017-07-05] MEDS: 1/2 NS 1,000 ML IV SCH (17:15)
[2017-07-05] MEDS: ERTAPENEM 1 GM in NS 100 ML IV SCH (17:15)
[2017-07-05] MEDS: OXYCODONE/APAP 5/325 TAB PO SCH (20:03)
[2017-07-05] MEDS: PRAVASTATIN SODIUM 20 MG TAB PO SCH (20:03)
[2017-07-05] MEDS: VERAPAMIL ER 180 MG TAB PO SCH (20:04)
[2017-07-05] MEDS: TIOTROPIUM INHALER 18 MCG/DOSE 5 DOSE/MDI IH SCH (20:07)
[2017-07-06] MEDS: LORazepam 1 MG TAB PO PRN ×2 (03:45→21:52)
[2017-07-06] MEDS: OXYCODONE/APAP 5/325 TAB PO PRN (04:03)
[2017-07-06] MEDS: 1/2 NS 1,000 ML IV SCH (04:08)
[2017-07-06 04:25] LABS: PLATELET COUNT 412 10^3/uL (150-400)
[2017-07-06 04:38] LABS: INR 4.29 (0.83-1.16)
[2017-07-06] MEDS: IPRATROPIUM/ALBUTEROL 3 ML DEYVIAL IH SCH ×2 (08:39→19:42)
[2017-07-06] MEDS: FLUTICASONE NASAL 120 SPRAYS/16 GM MDI NS SCH (09:20)
[2017-07-06] MEDS: ERTAPENEM 1 GM in NS 100 ML IV SCH (09:20)
[2017-07-06] MEDS: POLYETHYLENE GLYCOL 3350 17 GM PKT PO SCH (09:23)
--- NOTE | 2017-07-06 12:13 | SOAPPROG ---
SOAP Progress Note Assessment/Plan: Assessment: 81yo F POD#8 s/p ex-lap with lysis of adhesion in pelvis causing sigmoid obstruction Barium enema without colon obstruction. CT yest partial SBO No vomiting today. No flatus Patient refuses NG NPO due to worsening nausea/vomiting. May consider TPN soon Encouraged ambulation, IS Dispo: awaiting return of bowel function. appreciate GI and hospitalists. Seen with Dr. Linn. S: [place] terrible yesterday. No vomiting today. No flatus. Still feels very weak. O: laying in bed, comfortable, NAD No increased work of breathing Less distended and soft, nontender. Midline incision CDI, willi intact Objective: Vital Signs Temp Pulse Resp BP Pulse Ox 36.6 C 81 18 116/49 L 91 L 07/06/17 09:13 07/06/17 09:13 07/06/17 09:13 07/06/17 09:13 07/06/17 09:13 Laboratory Results 07/06/17 04:00 07/06/17 04:00 07/05/17 07/06/17 07/07/17 05:59 05:59 05:59 Intake Total 500 1650 Output Total 450 Balance 50 1650 PT 42.0 SEC (12.0-15.0) H 07/06/17 04:00 INR 4.29 (0.83-1.16) H 07/06/17 04:00 ICD10 Worksheet Patient Problems: Problems Problem Status Onset Constipation Acute Large bowel obstruction Acute COPD (chronic obstructive pulmonary disease) Acute DVT (deep venous thrombosis) Acute Hypoxia Acute Osteoarthritis of hip Acute Pneumonia Acute chronic disease mgmt/transitional care Acute CAD (coronary atherosclerotic disease) Chronic
--- NOTE | 2017-07-06 15:04 | HOSPPROG ---
Hospitalist Progress Note Assessment/Plan: 81 yo F with hx of CAD, COPD, PE/DVT presenting with large bowel obstruction # large bowel/partial sbo/post op ileus: initial large bowel obstruction 2/2 adhesions and now s/p VIJAY. Has not had return or bowel function since surgery and abdomen remains distended and patient with continued significant n/v. She has refused NGT. Abd ct from yesterday showing partial sbo, personally reviewed. Will plan to start TPN in am. # hospital acquired aspiration pna: with rll/rml nodular opacification noted on ct c/w aspiration pna versus pneumonitis, cxr showing bilateral but r > l opacities c/w aspiration, will continue ertapenem for now for a short course # acute hypoxic respiratory failure: has been 88-91% on 2L in the setting of above as well as likely splinting related to pain and atelectasis # acute on chronic diastolic heart failure: with significant lower extremity edema but not terribly pulmonary edema by imaging, will continue lasix # dvt/pe: currently supra-therapeutic on warfarin, pharmacy adjusting dose # copd: no e/o significant exacerbation at this time, will continue to monitor # CAD: with hx of stent, continue plavix and statin # pulmonary nodule: with need f/u chest ct in 1 year # htn: continue verapamil # dispo: IP status, ultimate dc TBD, still no bowel function and limited mobility Patient new to my care. Care plan reviewed with general surgery including plans for tpn. Subjective: no significant overnight events, patient currently feeling well, she is currently feeling lousy but no different than previously Objective: Vital Signs Temp Pulse Resp BP Pulse Ox 36.6 C 81 18 116/49 L 91 L 07/06/17 09:13 07/06/17 09:13 07/06/17 09:13 07/06/17 09:13 07/06/17 09:13 Laboratory Results 07/06/17 04:00 07/06/17 04:00 07/05/17 07/06/17 07/07/17 05:59 05:59 05:59 Intake Total 500 1650 Output Total 450 Balance 50 1650 PT 42.0 SEC (12.0-15.0) H 07/06/17 04:00 INR 4.29 (0.83-1.16) H 07/06/17 04:00 awake alert nad anicteric op clear soft ttp no bowel no cce warm dry well perfused oriented appropriate ICD10 Worksheet Patient Problems: Problems Problem Status Onset Constipation Acute Large bowel obstruction Acute chronic disease mgmt/transitional care Acute CAD (coronary atherosclerotic disease) Chronic Osteoarthritis of hip Acute COPD (chronic obstructive pulmonary disease) Acute Hypoxia Acute Pneumonia Acute DVT (deep venous thrombosis) Acute
[2017-07-06] MEDS ORDERED: D10W 1,000 ML IV PRN (15:16)
[2017-07-06] MEDS ORDERED: ALTEPLASE 2 MG VIAL IVP PRN (16:00)
--- NOTE | 2017-07-06 16:27 | SOAPPROG ---
SOAP Progress Note Assessment/Plan: Assessment: 1. Bowel obstruction with slow return of bowel function. Partial SBO raymond CT of Abdomen. Continued abdominal distension albeit nausea resolved with NPO. Patient refuses NG suction. Plan: 1. NPO. 2. TPN. 3. Patient requests surgical second opinion with Dr. Jelani Ruiz (she has seen him in the past). Troy Gutierrez MD 07/06/17 16:23 Subjective: CC: No nausea now that she is NPO. Continued abdominal distension. Patient has seen Dr. Ruiz in the past and is requesting second opinion with him as to treatment of SBO. Objective: Vital Signs Temp Pulse Resp BP Pulse Ox 36.6 C 81 18 116/49 L 91 L 07/06/17 09:13 07/06/17 09:13 07/06/17 09:13 07/06/17 09:13 07/06/17 09:13 Laboratory Results 07/06/17 04:00 07/06/17 04:00 07/05/17 07/06/17 07/07/17 05:59 05:59 05:59 Intake Total 500 1650 Output Total 450 Balance 50 1650 PT 42.0 SEC (12.0-15.0) H 07/06/17 04:00 INR 4.29 (0.83-1.16) H 07/06/17 04:00 Physical Exam - Physical Exam General Appearance: alert, mild distress Neck: supple Respiratory: lungs clear, normal breath sounds Cardiac/Chest: normal peripheral pulses, regular rate, rhythm Abdomen: distended, other (Quiet BS.) Skin: normal color, warm/dry Neuro/Psych: alert, normal mood/affect, oriented x 3 ICD10 Worksheet Patient Problems: Problems Problem Status Onset Constipation Acute Large bowel obstruction Acute COPD (chronic obstructive pulmonary disease) Acute DVT (deep venous thrombosis) Acute Hypoxia Acute Osteoarthritis of hip Acute Pneumonia Acute chronic disease mgmt/transitional care Acute CAD (coronary atherosclerotic disease) Chronic
--- NOTE | 2017-07-06 16:34 | ASMTCMCOM ---
CM Note CM Note Notes: Spoke w/MD, PT now recommending SNF. Pt is being started on TPN and bowel function still has not returned. After discussing with MD, will hold off talking to pt about SNF as she is 5-7 days away from dc. Current Discharge Plan: Discuss possible SNF placement, if not then dc home w/homecare. Date Signed: 07/06/2017 04:33 PM Electronically Signed By:Shanae Patel RN
[2017-07-06] MEDS: TIOTROPIUM INHALER 18 MCG/DOSE 5 DOSE/MDI IH SCH (19:43)
[2017-07-06] MEDS: VERAPAMIL ER 180 MG TAB PO SCH (21:50)
[2017-07-06] MEDS: PRAVASTATIN SODIUM 20 MG TAB PO SCH (21:51)
[2017-07-06] MEDS: OXYCODONE/APAP 5/325 TAB PO SCH (21:51)
[2017-07-07 05:26] LABS: PLATELET COUNT 428 10^3/uL (150-400)
[2017-07-07 05:34] LABS: INR 2.31 (0.83-1.16); PROTIME(PATIENT) 25.6 SEC (12.0-15.0)
[2017-07-07] MEDS: 1/2 NS 1,000 ML IV SCH (06:04)
[2017-07-07] MEDS: CLOPIDOGREL BISULFATE 75 MG TAB PO SCH (08:08)
[2017-07-07] MEDS: ERTAPENEM 1 GM in NS 100 ML IV SCH (08:09)
[2017-07-07] MEDS: HYDROmorphONE/DILAUDID 1 MG/ML INJ IVP PRN ×3 (08:51→17:46)
[2017-07-07] MEDS: IPRATROPIUM/ALBUTEROL 3 ML DEYVIAL IH SCH ×2 (09:38→21:10)
[2017-07-07] MEDS: FLUTICASONE NASAL 120 SPRAYS/16 GM MDI NS SCH (09:42)
--- NOTE | 2017-07-07 10:07 | SOAPPROG ---
SOAP Progress Note Assessment/Plan: Assessment: 1. Bowel obstruction with slow return of bowel function. Partial SBO on CT of Abdomen. Continued abdominal distension albeit nausea resolved with NPO. Patient refuses NG suction. 2. COPD/probable aspiration pneumonia. Plan: 1. NPO. 2. TPN to start today. 3. Patient requests surgical second opinion with Dr. Jelani Ruiz (she has seen him in the past). I have discussed with Dr Ruiz and see will see her today. Troy Gutierrez MD 07/07/17 10:04 Subjective: CC: Partial SBO. Interval HPI: Still some nausea without emesis. No BM. + Flatus. Objective: Vital Signs Temp Pulse Resp BP Pulse Ox 37 C 82 16 152/64 H 94 07/07/17 04:47 07/07/17 04:47 07/07/17 04:47 07/07/17 04:47 07/07/17 04:47 Laboratory Results 07/07/17 05:18 07/07/17 05:18 07/06/17 07/07/17 07/08/17 05:59 05:59 05:59 Intake Total 1650 304 Balance 1650 304 PT 25.6 SEC (12.0-15.0) H D 07/07/17 05:18 INR 2.31 (0.83-1.16) H 07/07/17 05:18 Physical Exam - Physical Exam General Appearance: alert, mild distress Respiratory: lungs clear, normal breath sounds Cardiac/Chest: regular rate, rhythm Abdomen: soft, distended (occasional BS.) Skin: normal color, warm/dry Neuro/Psych: alert, normal mood/affect, oriented x 3 ICD10 Worksheet Patient Problems: Problems Problem Status Onset Constipation Acute Large bowel obstruction Acute COPD (chronic obstructive pulmonary disease) Acute DVT (deep venous thrombosis) Acute Hypoxia Acute Osteoarthritis of hip Acute Pneumonia Acute chronic disease mgmt/transitional care Acute CAD (coronary atherosclerotic disease) Chronic
[2017-07-07] MEDS: POLYETHYLENE GLYCOL 3350 17 GM PKT PO SCH (10:55)
[2017-07-07] MEDS: IPRATROPIUM/ALBUTEROL 3 ML DEYVIAL IH PRN (14:30)
--- NOTE | 2017-07-07 14:58 | HOSPPROG ---
Hospitalist Progress Note Assessment/Plan: 81 yo F with hx of CAD, COPD, PE/DVT presenting with large bowel obstruction # large bowel/partial sbo/post op ileus: initial large bowel obstruction 2/2 adhesions and now s/p VIJAY. Has not had return of bowel function since surgery and abdomen remains distended and patient with continued significant n/v. She has refused NGT. Abd ct from 07/05 showing persistent partial sbo and until today patient with persistent n/v c/w continued obstruction. Repeat abd xray today per gen surg recommendations personally reviewed and appears to be improving, some bowel sounds on exam today. Consider initiation of bowel protocol and advancing diet in coming days. # hospital acquired aspiration pna: with rll/rml nodular opacification noted on ct c/w aspiration pna versus pneumonitis, cxr showing bilateral but r > l opacities c/w aspiration, will continue ertapenem for now for a short course # acute hypoxic respiratory failure: has been 88-91% on 2L in the setting of above as well as likely splinting related to pain and atelectasis # acute on chronic diastolic heart failure: with significant lower extremity edema but not terribly pulmonary edema by imaging, will continue lasix # dvt/pe: continue warfarin # copd: no e/o significant exacerbation at this time, will continue to monitor # CAD: with hx of stent, continue plavix and statin # pulmonary nodule: with need f/u chest ct in 1 year # htn: continue verapamil # dispo: IP status, ultimate dc TBD, still no bowel function and limited mobility Reviewed care plan with Dr. Ruiz. Discussed with patients son present at bedside, answered his many concerns Subjective: no significant overnight events, patient has not had a bm, abd pain is less today, son present at bedside very upset Objective: Vital Signs Temp Pulse Resp BP Pulse Ox 36.7 C 83 16 132/52 H 92 07/07/17 10:32 07/07/17 14:31 07/07/17 14:31 07/07/17 10:32 07/07/17 14:31 Laboratory Results 07/07/17 05:18 07/07/17 05:18 07/06/17 07/07/17 07/08/17 05:59 05:59 05:59 Intake Total 1650 304 Balance 1650 304 PT 25.6 SEC (12.0-15.0) H D 07/07/17 05:18 INR 2.31 (0.83-1.16) H 07/07/17 05:18 awake alert nad anicteric op clear rrr no mrg cta b soft dec bs no cce warm dry well perfused oriented appropriate ICD10 Worksheet Patient Problems: Problems Problem Status Onset Constipation Acute Large bowel obstruction Acute chronic disease mgmt/transitional care Acute CAD (coronary atherosclerotic disease) Chronic Osteoarthritis of hip Acute COPD (chronic obstructive pulmonary disease) Acute Hypoxia Acute Pneumonia Acute DVT (deep venous thrombosis) Acute
[2017-07-07] MEDS ORDERED: WARFARIN SODIUM 1 MG TAB PO ONE (16:00)
--- NOTE | 2017-07-07 19:16 | SOAPPROG ---
SOAP Progress Note Assessment/Plan: Assessment: s/p ex lap with adhesiolysis. post op ileus. X ray today improved. Gas yesterday but none today TPN Possible clears tomorrow Expect to go slow with food S: Eager to eat. No flatus today. No emesis Plan: 07/07/17 19:15 Objective: Vital Signs Temp Pulse Resp BP Pulse Ox 36.6 C 81 18 137/52 H 93 07/07/17 16:42 07/07/17 16:42 07/07/17 16:42 07/07/17 16:42 07/07/17 16:42 Laboratory Results 07/07/17 05:18 07/07/17 05:18 07/06/17 07/07/17 07/08/17 05:59 05:59 05:59 Intake Total 1650 1229 Balance 1650 1229 PT 25.6 SEC (12.0-15.0) H D 07/07/17 05:18 INR 2.31 (0.83-1.16) H 07/07/17 05:18 ICD10 Worksheet Patient Problems: Problems Problem Status Onset Constipation Acute Large bowel obstruction Acute COPD (chronic obstructive pulmonary disease) Acute DVT (deep venous thrombosis) Acute Hypoxia Acute Osteoarthritis of hip Acute Pneumonia Acute chronic disease mgmt/transitional care Acute CAD (coronary atherosclerotic disease) Chronic
[2017-07-07] MEDS: TIOTROPIUM INHALER 18 MCG/DOSE 5 DOSE/MDI IH SCH (21:10)
[2017-07-07] MEDS: TPN 1 EA BAG IV SCH (21:16)
[2017-07-07] MEDS: VERAPAMIL ER 180 MG TAB PO SCH (22:19)
[2017-07-07] MEDS: LORazepam 1 MG TAB PO PRN (22:19)
[2017-07-07] MEDS: PRAVASTATIN SODIUM 20 MG TAB PO SCH (22:19)
[2017-07-07] MEDS: OXYCODONE/APAP 5/325 TAB PO SCH (22:19)
[2017-07-08] MEDS: OXYCODONE/APAP 5/325 TAB PO PRN ×2 (05:40→20:01)
[2017-07-08] MEDS: LORazepam 1 MG TAB PO PRN (05:41)
[2017-07-08 06:20] LABS: INR 2.67 (0.83-1.16); PROTIME(PATIENT) 28.7 SEC (12.0-15.0)
--- NOTE | 2017-07-08 08:36 | SOAPPROG ---
SOAP Progress Note Assessment/Plan: Assessment: 1. Bowel obstruction with slow return of bowel function. Had BM last night. No nausea, tolerating po clears today. 2. COPD/probable aspiration pneumonia. Plan: 1. Clears po. 2. TPN. Troy Gutierrez MD 07/08/17 08:33 Subjective: CC: SBO. Interval HPI: Patient feeling much better today. No nausea. Tolerating some clears po. BM last night. Objective: Vital Signs Temp Pulse Resp BP Pulse Ox 36.5 C 61 18 114/53 L 96 07/08/17 05:33 07/08/17 05:33 07/08/17 05:33 07/08/17 05:33 07/08/17 05:33 Laboratory Results 07/07/17 05:18 07/08/17 05:45 07/07/17 07/08/17 07/09/17 05:59 05:59 05:59 Intake Total 2741 Balance 2741 PT 28.7 SEC (12.0-15.0) H 07/08/17 05:45 INR 2.67 (0.83-1.16) H 07/08/17 05:45 Physical Exam - Physical Exam General Appearance: alert, no apparent distress Respiratory: lungs clear, normal breath sounds Cardiac/Chest: regular rate, rhythm, edema (trace pedal) Abdomen: normal bowel sounds, non-tender, soft Skin: warm/dry Neuro/Psych: alert, normal mood/affect, oriented x 3 ICD10 Worksheet Patient Problems: Problems Problem Status Onset Constipation Acute Large bowel obstruction Acute COPD (chronic obstructive pulmonary disease) Acute DVT (deep venous thrombosis) Acute Hypoxia Acute Osteoarthritis of hip Acute Pneumonia Acute chronic disease mgmt/transitional care Acute CAD (coronary atherosclerotic disease) Chronic
[2017-07-08] MEDS: CLOPIDOGREL BISULFATE 75 MG TAB PO SCH (08:59)
[2017-07-08] MEDS: ERTAPENEM 1 GM in NS 100 ML IV SCH (09:00)
[2017-07-08] MEDS: FLUTICASONE NASAL 120 SPRAYS/16 GM MDI NS SCH (09:06)
[2017-07-08] MEDS ORDERED: PROTOCOL POTASSIUM 1 DOSE MISC PRN (09:25)
[2017-07-08 10:44] LABS: PLATELET COUNT 457 10^3/uL (150-400)
[2017-07-08] MEDS ORDERED: POTASSIUM CL 10 MEQ TAB PO ONE (11:00)
[2017-07-08] MEDS: IPRATROPIUM/ALBUTEROL 3 ML DEYVIAL IH SCH ×2 (11:05→20:08)
[2017-07-08] MEDS ORDERED: D50W 25 GM/50 ML SYR IVP PRN (11:24)
[2017-07-08] MEDS ORDERED: D50W 25 GM/50 ML VIAL IVP PRN (11:24)
[2017-07-08] MEDS ORDERED: PARAMETERS MISC PRN (11:24)
[2017-07-08] MEDS: POLYETHYLENE GLYCOL 3350 17 GM PKT PO SCH (12:22)
--- NOTE | 2017-07-08 12:54 | SOAPPROG ---
SOAP Progress Note Assessment/Plan: Assessment: 81-year-old female status post exploratory laparotomy, lysis of adhesions, postoperative ileus Reports doing well, had bowel movement, tolerating small amount clears. No significant pain. Physical exam Awake alert Abdomen soft nontender bowel sounds present Plan: Improving Seen examined with Dr. Ruiz. Continue clears, encouraged ambulation. 07/08/17 12:53 Objective: Vital Signs Temp Pulse Resp BP Pulse Ox 36.3 C 70 14 125/51 H 96 07/08/17 08:35 07/08/17 11:06 07/08/17 11:06 07/08/17 08:35 07/08/17 11:06 Laboratory Results 07/08/17 10:10 07/08/17 05:45 07/07/17 07/08/17 07/09/17 05:59 05:59 05:59 Intake Total 2741 Balance 2741 PT 28.7 SEC (12.0-15.0) H 07/08/17 05:45 INR 2.67 (0.83-1.16) H 07/08/17 05:45 ICD10 Worksheet Patient Problems: Problems Problem Status Onset Constipation Acute Large bowel obstruction Acute COPD (chronic obstructive pulmonary disease) Acute DVT (deep venous thrombosis) Acute Hypoxia Acute Osteoarthritis of hip Acute Pneumonia Acute chronic disease mgmt/transitional care Acute CAD (coronary atherosclerotic disease) Chronic
[2017-07-08] MEDS: INSULIN LISPRO 100 UNIT/1 ML VIAL LOW SC SCH ×3 (13:53→23:17)
[2017-07-08] MEDS ORDERED: INSULIN LISPRO 100 UNIT/1 ML VIAL LOW SC SCH (14:00)
--- NOTE | 2017-07-08 14:41 | HOSPPROG ---
Hospitalist Progress Note Assessment/Plan: 81 yo F with hx of CAD, COPD, PE/DVT presenting with large bowel obstruction # large bowel/partial sbo/post op ileus: initial large bowel obstruction 2/2 adhesions and now s/p VIJAY. started on tpn but finally had bm last night and tolerating clears today, will continue tpn (had no nutrition x 10 days prior to tpn) until po adequate. # hospital acquired aspiration pna: with rll/rml nodular opacification noted on ct c/w aspiration pna versus pneumonitis, cxr showing bilateral but r > l opacities c/w aspiration, will continue ertapenem for now. repeat CXR with abd films yesterday appeared to be slightly worse than prior. # acute hypoxic respiratory failure: has been 88-91% on 2L in the setting of above as well as likely splinting related to pain and atelectasis # acute on chronic diastolic heart failure: with significant lower extremity edema but not terribly pulmonary edema by imaging, will continue lasix # dvt/pe: continue warfarin # copd: no e/o significant exacerbation at this time, will continue to monitor # CAD: with hx of stent, continue plavix and statin # pulmonary nodule: with need f/u chest ct in 1 year # htn: continue verapamil # dispo: IP status, ultimate dc TBD, may need snf Subjective: no significant overnight events, patient had bm last night and tolerating clears today Objective: Vital Signs Temp Pulse Resp BP Pulse Ox 36.3 C 70 14 125/51 H 96 07/08/17 08:35 07/08/17 11:06 07/08/17 11:06 07/08/17 08:35 07/08/17 11:06 Laboratory Results 07/08/17 10:10 07/08/17 05:45 07/07/17 07/08/17 07/09/17 05:59 05:59 05:59 Intake Total 2741 Balance 2741 PT 28.7 SEC (12.0-15.0) H 07/08/17 05:45 INR 2.67 (0.83-1.16) H 07/08/17 05:45 awake alert nad anicteric op clear rrr no mrg cta b soft dec bs no cce warm dry well perfused oriented appropriate ICD10 Worksheet Patient Problems: Problems Problem Status Onset Constipation Acute Large bowel obstruction Acute COPD (chronic obstructive pulmonary disease) Acute DVT (deep venous thrombosis) Acute Hypoxia Acute Osteoarthritis of hip Acute Pneumonia Acute chronic disease mgmt/transitional care Acute CAD (coronary atherosclerotic disease) Chronic
--- NOTE | 2017-07-08 15:02 | ASMTCMCOM ---
CM Note CM Note Notes: Met with pt and her son and dtr today to discuss DC plans. PT is recommending SNF. Discussed this with pt and she agreed and chose [facility]. Son and dtr in agreement too. Faxed referral to [facility]. C/M will continue to follow. Date Signed: 07/08/2017 03:01 PM Electronically Signed By:Cyndy Asher LCSW
[2017-07-08] MEDS: TIOTROPIUM INHALER 18 MCG/DOSE 5 DOSE/MDI IH SCH (20:43)
[2017-07-08] MEDS ORDERED: FLUTICASONE NASAL 120 SPRAYS/16 GM MDI EACHNARE PRN (21:10)
[2017-07-08] MEDS: PRAVASTATIN SODIUM 20 MG TAB PO SCH (21:47)
[2017-07-08] MEDS: TPN 1 EA BAG IV SCH (21:47)
[2017-07-08] MEDS: VERAPAMIL ER 180 MG TAB PO SCH (21:48)
[2017-07-08] MEDS: OXYCODONE/APAP 5/325 TAB PO SCH (21:48)
[2017-07-08] MEDS: ALBUTEROL 3 ML DEYVIAL IH PRN (23:27)
[2017-07-09] MEDS: INSULIN LISPRO 100 UNIT/1 ML VIAL LOW SC SCH ×3 (05:07→18:32)
[2017-07-09 05:57] LABS: PLATELET COUNT 507 10^3/uL (150-400)
[2017-07-09 06:08] LABS: INR 1.58 (0.83-1.16); PROTIME(PATIENT) 18.9 SEC (12.0-15.0)
[2017-07-09] MEDS: IPRATROPIUM/ALBUTEROL 3 ML DEYVIAL IH SCH ×2 (08:54→20:51)
--- NOTE | 2017-07-09 09:29 | HOSPPROG ---
Hospitalist Progress Note Assessment/Plan: #LBO/SBO: had BM yesterday. ADAT, cont TPN. s/p adhesiolysis 06/27. Tolerating light diet #Aspiration PNA: on Ertapenem for broad-coverage with obstruction #Acute hypoxic resp failure: multifactorial with atelectasis, effusions, PNA. CXR personally reviewed by me 07/08 shows increased effusions. Cont cont IS bedside, Lasix, stop IVFs #Recurrent thrombosis: DVT 06/22. INR low, will bridge with Lovenox with recent clot. Monitor closely for bleeding. Add H2 jesus manuel #Decompensated diastolic HF: up 6kg. Stop IVFs. Dose IV Lasix this evening. #Protein caloric malnutrition: light diet, on TPN. Will not increase given volume overload and advancing diet #CAD: Plavix, ASA #Pulm nodule: repeat CT 1 year #Diet: light diet, TPN #DVT ppx: on coumadin #Disp: cont inpt admission with IV diuresis, monitor bleeding with Lovenox bridge Subjective: had BM yesterday. Passing flatus. No N/V. Objective: Vital Signs Temp Pulse Resp BP Pulse Ox 36.6 C 74 16 135/65 H 96 07/09/17 07:38 07/09/17 08:56 07/09/17 08:56 07/09/17 07:38 07/09/17 08:56 Laboratory Results 07/09/17 05:45 07/09/17 05:45 07/08/17 07/09/17 07/10/17 05:59 05:59 05:59 Intake Total 2741 1460 Balance 2741 1460 PT 18.9 SEC (12.0-15.0) H D 07/09/17 05:45 INR 1.58 (0.83-1.16) H 07/09/17 05:45 - Physical Exam Constitutional: no apparent distress Eyes: PERRL Ears, Nose, Mouth, Throat: moist mucous membranes, hearing normal Cardiovascular: regular rate and rhythym, no murmur, rub, or gallop, edema (+3 LE edema BL) Respiratory: no respiratory distress, no rales or rhonchi, other (decreased BS bases) Gastrointestinal: normoactive bowel sounds, distension, other (surgical incision willi, no redness or drainage) Skin: warm Musculoskeletal: full muscle strength Neurologic: AAOx3, CN II-XII Intact Psychiatric: interacting appropriately ICD10 Worksheet Patient Problems: Problems Problem Status Onset Constipation Acute Large bowel obstruction Acute COPD (chronic obstructive pulmonary disease) Acute DVT (deep venous thrombosis) Acute Hypoxia Acute Osteoarthritis of hip Acute Pneumonia Acute chronic disease mgmt/transitional care Acute CAD (coronary atherosclerotic disease) Chronic
[2017-07-09] MEDS ORDERED: MAGNESIUM SULF 1 GM/DEXTROSE 100 ML IV ONE (09:30)
[2017-07-09] MEDS: ERTAPENEM 1 GM in NS 100 ML IV SCH (09:45)
[2017-07-09] MEDS: POLYETHYLENE GLYCOL 3350 17 GM PKT PO SCH (09:46)
[2017-07-09] MEDS: FLUTICASONE NASAL 120 SPRAYS/16 GM MDI NS SCH (11:02)
--- NOTE | 2017-07-09 11:06 | SOAPPROG ---
SOAP Progress Note Assessment/Plan: Assessment: 1. Bowel obstruction/ileus; resolved. 2. COPD/aspiration pneumonia. Plan: 1. CYDNEY 2. TPN wean. 3. I will sign off today, please call me for recurrent GI issues. Troy Gutierrez MD 07/09/17 11:03 Subjective: CC: SBO Inerval HPI: Doing well with advanced diaet without nausea or abdominal pain. Passing flatus. Objective: Vital Signs Temp Pulse Resp BP Pulse Ox 36.6 C 74 16 135/65 H 96 07/09/17 07:38 07/09/17 08:56 07/09/17 08:56 07/09/17 07:38 07/09/17 08:56 Laboratory Results 07/09/17 05:45 07/09/17 05:45 07/08/17 07/09/17 07/10/17 05:59 05:59 05:59 Intake Total 2741 1460 Balance 2741 1460 PT 18.9 SEC (12.0-15.0) H D 07/09/17 05:45 INR 1.58 (0.83-1.16) H 07/09/17 05:45 Physical Exam - Physical Exam General Appearance: alert, no apparent distress Neck: supple Respiratory: lungs clear, normal breath sounds Cardiac/Chest: normal peripheral pulses, regular rate, rhythm Abdomen: normal bowel sounds, non-tender, soft Skin: warm/dry Neuro/Psych: alert, normal mood/affect, oriented x 3 ICD10 Worksheet Patient Problems: Problems Problem Status Onset Constipation Acute Large bowel obstruction Acute COPD (chronic obstructive pulmonary disease) Acute DVT (deep venous thrombosis) Acute Hypoxia Acute Osteoarthritis of hip Acute Pneumonia Acute chronic disease mgmt/transitional care Acute CAD (coronary atherosclerotic disease) Chronic
[2017-07-09] MEDS: OXYCODONE/APAP 5/325 TAB PO PRN ×2 (11:16→16:32)
[2017-07-09 11:36] LABS: INR 1.53 (0.83-1.16); PROTIME(PATIENT) 18.4 SEC (12.0-15.0)
[2017-07-09] MEDS: ENOXAPARIN 60 MG/0.6 ML SYR SC SCH ×2 (13:32→21:10)
--- NOTE | 2017-07-09 14:04 | ASMTCMCOM ---
CM Note CM Note Notes: [facility] asked to be faxed pt's TPN formula so they can determine if they can take pt. Per Dr Lopez, pt will likely DC on TPN. DC unknown. C/M to follow. Date Signed: 07/09/2017 02:03 PM Electronically Signed By:Cyndy Asher LCSW
[2017-07-09] MEDS ORDERED: WARFARIN SODIUM 1 MG TAB PO ONE (16:00)
[2017-07-09] MEDS: FUROSEMIDE 20 MG/2 ML VIAL IVP SCH (16:10)
[2017-07-09] MEDS: TIOTROPIUM INHALER 18 MCG/DOSE 5 DOSE/MDI IH SCH (20:51)
[2017-07-09] MEDS ORDERED: ENOXAPARIN 60 MG/0.6 ML SYR SC SCH (21:00)
[2017-07-09] MEDS: FAMOTIDINE 20 MG/NACL 50 ML IV SCH (21:09)
[2017-07-09] MEDS: PRAVASTATIN SODIUM 20 MG TAB PO SCH (21:10)
[2017-07-09] MEDS: OXYCODONE/APAP 5/325 TAB PO SCH (21:10)
[2017-07-09] MEDS: TPN 1 EA BAG IV SCH (21:11)
[2017-07-09] MEDS: VERAPAMIL ER 180 MG TAB PO SCH (21:16)
[2017-07-09] MEDS: LORazepam 1 MG TAB PO PRN (21:17)
[2017-07-09] MEDS: ONDANSETRON 4 MG/2 ML VIAL IVP PRN (22:05)
[2017-07-10] MEDS: INSULIN LISPRO 100 UNIT/1 ML VIAL LOW SC SCH ×4 (03:36→17:48)
[2017-07-10 04:57] LABS: PLATELET COUNT 490 10^3/uL (150-400)
[2017-07-10 06:16] LABS: INR 1.37 (0.83-1.16); PROTIME(PATIENT) 16.9 SEC (12.0-15.0)
[2017-07-10] MEDS: ERTAPENEM 1 GM in NS 100 ML IV SCH (08:49)
[2017-07-10] MEDS: FUROSEMIDE 20 MG/2 ML VIAL IVP SCH ×2 (08:50→14:18)
[2017-07-10] MEDS: ENOXAPARIN 60 MG/0.6 ML SYR SC SCH ×2 (08:51→21:35)
[2017-07-10] MEDS: POLYETHYLENE GLYCOL 3350 17 GM PKT PO SCH (08:51)
[2017-07-10] MEDS: FAMOTIDINE 20 MG/NACL 50 ML IV SCH ×2 (09:43→21:35)
[2017-07-10] MEDS: CLOPIDOGREL BISULFATE 75 MG TAB PO SCH (10:14)
[2017-07-10] MEDS: IPRATROPIUM/ALBUTEROL 3 ML DEYVIAL IH SCH ×2 (10:21→20:18)
--- NOTE | 2017-07-10 11:02 | HOSPPROG ---
Hospitalist Progress Note Assessment/Plan: #LBO/SBO: had BM yesterday. ADAT, cont TPN. s/p adhesiolysis 06/27. Tolerating light diet #Leukocytosis: c/o dysuria. Check UA. No fever. #Aspiration PNA: on Ertapenem for broad-coverage with obstruction #Acute hypoxic resp failure: multifactorial with atelectasis, effusions, PNA. CXR personally reviewed by me 07/08 shows increased effusions. Cont cont IS bedside, Lasix, stop IVFs #Recurrent thrombosis: DVT 06/22. INR low, will bridge with Lovenox with recent clot. Monitor closely for bleeding. Add H2 jesus manuel #Decompensated diastolic HF: up 6kg. Stop IVFs. Dose IV Lasix this evening. #Protein caloric malnutrition: light diet. Wean off TPN today, she no longer wants it #CAD: Plavix, ASA #Pulm nodule: repeat CT 1 year #Diet: light diet, TPN #DVT ppx: on coumadin #Disp: cont inpt admission with IV diuresis, monitor bleeding with Lovenox bridge Subjective: c/o dysuria Objective: Vital Signs Temp Pulse Resp BP Pulse Ox 36.8 C 86 20 132/63 H 97 07/10/17 07:45 07/10/17 10:22 07/10/17 10:22 07/10/17 07:45 07/10/17 10:22 Laboratory Results 07/10/17 04:30 07/10/17 04:30 07/09/17 07/10/17 07/11/17 05:59 05:59 04:59 Intake Total 1460 2508 Output Total 1675 425 Balance 1460 833 -425 PT 16.9 SEC (12.0-15.0) H 07/10/17 04:30 INR 1.37 (0.83-1.16) H 07/10/17 04:30 - Physical Exam Constitutional: no apparent distress Eyes: PERRL Ears, Nose, Mouth, Throat: moist mucous membranes Cardiovascular: edema (+3 LE edema) Respiratory: no respiratory distress, other (dull BS mid-lung to bases, BL) Gastrointestinal: normoactive bowel sounds, other (surgical incision healing well. No redness, drainage) Skin: warm Musculoskeletal: full muscle strength Neurologic: AAOx3 ICD10 Worksheet Patient Problems: Problems Problem Status Onset Constipation Acute Large bowel obstruction Acute COPD (chronic obstructive pulmonary disease) Acute DVT (deep venous thrombosis) Acute Hypoxia Acute Osteoarthritis of hip Acute Pneumonia Acute chronic disease mgmt/transitional care Acute CAD (coronary atherosclerotic disease) Chronic
--- NOTE | 2017-07-10 11:20 | SOAPPROG ---
SOAP Progress Note Assessment/Plan: Assessment: STILL SLIGHTLY DISTENDED BUT PASSING FLATUS/ WOUND OK/ AFEBRILE CHEST WITH DULLNESS BOTH BASES EATING BETTER ON RX FOR DVT Plan:FU 3-WAY 07/10/17 11:18 Objective: Vital Signs Temp Pulse Resp BP Pulse Ox 36.8 C 86 20 132/63 H 97 07/10/17 07:45 07/10/17 10:22 07/10/17 10:22 07/10/17 07:45 07/10/17 10:22 Laboratory Results 07/10/17 04:30 07/10/17 04:30 07/09/17 07/10/17 07/11/17 05:59 05:59 04:59 Intake Total 1460 2508 Output Total 1675 425 Balance 1460 833 -425 PT 16.9 SEC (12.0-15.0) H 07/10/17 04:30 INR 1.37 (0.83-1.16) H 07/10/17 04:30 ICD10 Worksheet Patient Problems: Problems Problem Status Onset Constipation Acute Large bowel obstruction Acute COPD (chronic obstructive pulmonary disease) Acute DVT (deep venous thrombosis) Acute Hypoxia Acute Osteoarthritis of hip Acute Pneumonia Acute chronic disease mgmt/transitional care Acute CAD (coronary atherosclerotic disease) Chronic
[2017-07-10] MEDS: FLUTICASONE NASAL 120 SPRAYS/16 GM MDI NS SCH (11:50)
[2017-07-10] MEDS: OXYCODONE/APAP 5/325 TAB PO PRN (12:20)
--- NOTE | 2017-07-10 12:25 | ASMTCMCOM ---
CM Note CM Note Notes: Plan had been that patient would most likely discharge to [facility] rehab today but Dr. Lopez said patient is not ready yet, She says that she will discontinue the TPN and will discharge without TPN. Patient will be reassessed tomorrow for discharge. [facility] notified that patient will not discharge today. Also, patient did participate in therapies today. [facility] rehab notified by [facility] of progress with therapies. Case management will continue to follow. Date Signed: 07/10/2017 12:24 PM Electronically Signed By:RICHARD Angeles
--- NOTE | 2017-07-10 12:25 | ASMTCMCOM ---
CM Note CM Note Notes: Plan had been that patient would most likely discharge to [facility] rehab today but Dr. Lopez said patient is not ready yet, She says that she will discontinue the TPN and will discharge without TPN. Patient will be reassessed tomorrow for discharge. [facility] notified that patient will not discharge today. Also, patient did participate in therapies today. [facility] rehab notified by miss[facility] of progress with therapies. Case management will continue to follow. Date Signed: 07/10/2017 12:24 PM Electronically Signed By:RICHARD Angeles
[2017-07-10] MEDS ORDERED: WARFARIN SODIUM 3 MG TAB PO ONE (16:00)
[2017-07-10] MEDS: TIOTROPIUM INHALER 18 MCG/DOSE 5 DOSE/MDI IH SCH (20:18)
[2017-07-10] MEDS: PRAVASTATIN SODIUM 20 MG TAB PO SCH (21:35)
[2017-07-10] MEDS: OXYCODONE/APAP 5/325 TAB PO SCH (21:35)
[2017-07-10] MEDS: VERAPAMIL ER 180 MG TAB PO SCH (21:36)
[2017-07-10] MEDS: LORazepam 1 MG TAB PO PRN (21:41)
[2017-07-11 04:30] LABS: PLATELET COUNT 494 10^3/uL (150-400)
[2017-07-11 04:44] LABS: INR 1.35 (0.83-1.16); PROTIME(PATIENT) 16.7 SEC (12.0-15.0)
[2017-07-11] MEDS: INSULIN LISPRO 100 UNIT/1 ML VIAL LOW SC SCH ×3 (05:42→15:47)
--- NOTE | 2017-07-11 08:22 | HOSPPROG ---
Hospitalist Progress Note Assessment/Plan: #LBO/SBO: had BM today, tolerating light diet. Stoop TPN. s/p adhesiolysis . #Leukocytosis: improved today. UA negative. No fevers #Aspiration PNA: completed 7-days Ertapenem #Acute hypoxic resp failure: improving. completed 7 days abx, cont IV diuresis. 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 INR low, will bridge with Lovenox with recent clot. Monitor closely for bleeding. Add H2 jesus manuel #Decompensated diastolic HF: weight down, cont IV lasix #Protein caloric malnutrition: light diet. Wean off TPN today, she no longer wants it #CAD: Plavix, ASA #Pulm nodule: repeat CT 1 year #Diet: light diet, TPN #DVT ppx: on coumadin #Disp: cont inpt admission with IV diuresis, monitor bleeding with Lovenox bridge Subjective: Was very SOB yesterday, but improved today. Legs swelling Objective: Vital Signs Temp Pulse Resp BP Pulse Ox 36.5 C 73 18 117/65 96 07/11/17 08:21 07/11/17 08:21 07/11/17 08:21 07/11/17 08:21 07/11/17 08:21 Laboratory Results 07/11/17 04:10 07/11/17 04:10 07/10/17 07/11/17 07/12/17 06:59 05:59 05:59 Intake Total Output Total Balance PT 16.7 SEC (12.0-15.0) H 07/11/17 04:10 INR 1.35 (0.83-1.16) H 07/11/17 04:10 - Physical Exam Constitutional: no apparent distress Eyes: PERRL Ears, Nose, Mouth, Throat: moist mucous membranes Cardiovascular: regular rate and rhythym, edema (+3 LE edema) Respiratory: no respiratory distress, other (decreased BS at bases, but improved aeration) Gastrointestinal: normoactive bowel sounds Genitourinary: no bladder fullness Skin: warm Musculoskeletal: full muscle strength Neurologic: AAOx3 Psychiatric: interacting appropriately ICD10 Worksheet Patient Problems: Problems Problem Status Onset Constipation Acute Large bowel obstruction Acute COPD (chronic obstructive pulmonary disease) Acute DVT (deep venous thrombosis) Acute Hypoxia Acute Osteoarthritis of hip Acute Pneumonia Acute chronic disease mgmt/transitional care Acute CAD (coronary atherosclerotic disease) Chronic
--- NOTE | 2017-07-11 09:04 | SOAPPROG ---
SOAP Progress Note Assessment/Plan: Assessment: STILL SLIGHTLY DISTENDED BUT PASSING FLATUS/ WOUND OK/ AFEBRILE CHEST WITH DULLNESS BOTH BASES EATING BETTER ON RX FOR DVT Plan:FU 3-WAY 07/10/17 11:18 07/11/17 09:03 AFEBRILE/ ABD NO CHANGE/ +FLATUS/ VS STABLE/ PNA IMPROVED/ 3-WAY IMPROVED Objective: Vital Signs Temp Pulse Resp BP Pulse Ox 36.5 C 73 18 117/65 96 07/11/17 08:21 07/11/17 08:21 07/11/17 08:21 07/11/17 08:21 07/11/17 08:21 Laboratory Results 07/11/17 04:10 07/11/17 04:10 07/10/17 07/11/17 07/12/17 06:59 05:59 05:59 Intake Total Output Total Balance PT 16.7 SEC (12.0-15.0) H 07/11/17 04:10 INR 1.35 (0.83-1.16) H 07/11/17 04:10 ICD10 Worksheet Patient Problems: Problems Problem Status Onset Constipation Acute Large bowel obstruction Acute COPD (chronic obstructive pulmonary disease) Acute DVT (deep venous thrombosis) Acute Hypoxia Acute Osteoarthritis of hip Acute Pneumonia Acute chronic disease mgmt/transitional care Acute CAD (coronary atherosclerotic disease) Chronic
[2017-07-11] MEDS: IPRATROPIUM/ALBUTEROL 3 ML DEYVIAL IH SCH ×2 (09:29→20:29)
[2017-07-11] MEDS: FUROSEMIDE 20 MG/2 ML VIAL IVP SCH ×2 (09:51→15:27)
[2017-07-11] MEDS: POLYETHYLENE GLYCOL 3350 17 GM PKT PO SCH (09:51)
[2017-07-11] MEDS: ENOXAPARIN 60 MG/0.6 ML SYR SC SCH ×2 (09:51→20:53)
[2017-07-11] MEDS: FAMOTIDINE 20 MG/NACL 50 ML IV SCH (09:52)
[2017-07-11] MEDS: ERTAPENEM 1 GM in NS 100 ML IV SCH (10:51)
[2017-07-11] MEDS: FLUTICASONE NASAL 120 SPRAYS/16 GM MDI NS SCH (10:56)
[2017-07-11] MEDS: OXYCODONE/APAP 5/325 TAB PO PRN ×2 (10:57→17:09)
[2017-07-11] MEDS ORDERED: MAGNESIUM CITRATE 300 ML BOTTLE PO ONE (12:00)
--- NOTE | 2017-07-11 12:33 | ASMTCMCOM ---
CM Note CM Note Notes: Met with pt and dtr Khadijah today to answer questions about DC. Khadijah would like to be notified when pt DC's. Number is on board. Pt anxious to DC but Dr Lopez states pt needs at least another day. Updated [facility] and they are holding bed. C/M to follow. Date Signed: 07/11/2017 12:32 PM Electronically Signed By:Cyndy Asher LCSW
[2017-07-11] MEDS ORDERED: WARFARIN SODIUM 4 MG TAB PO ONE (16:00)
[2017-07-11] MEDS: TIOTROPIUM INHALER 18 MCG/DOSE 5 DOSE/MDI IH SCH (20:29)
[2017-07-11] MEDS: OXYCODONE/APAP 5/325 TAB PO SCH (20:50)
[2017-07-11] MEDS: LORazepam 1 MG TAB PO PRN (20:50)
[2017-07-11] MEDS: PRAVASTATIN SODIUM 20 MG TAB PO SCH (20:53)
[2017-07-11] MEDS: VERAPAMIL ER 180 MG TAB PO SCH (20:54)
[2017-07-11] MEDS: FAMOTIDINE 20 MG TAB PO SCH (20:55)
[2017-07-12] MEDS: OXYCODONE/APAP 5/325 TAB PO SCH ×2 (04:46→21:21)
[2017-07-12 05:55] LABS: PLATELET COUNT 432 10^3/uL (150-400)
[2017-07-12 06:10] LABS: INR 1.68 (0.83-1.16); PROTIME(PATIENT) 19.8 SEC (12.0-15.0)
--- NOTE | 2017-07-12 08:31 | HOSPPROG ---
Hospitalist Progress Note Assessment/Plan: #LBO/SBO: s/p adhesiolysis. Having BMs. Regular diet. Love to be re #Leukocytosis: improved today. UA negative. No fevers #Aspiration PNA: completed 7-days Ertapenem #Acute hypoxic resp failure: improving. completed 7 days abx, cont IV diuresis. 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 INR low, will bridge with Lovenox with recent clot. Monitor closely for bleeding. Add H2 jesus manuel #Decompensated diastolic HF: weight down to 60kg, cont IV lasix. Transition to PO in next 1-2 days #Protein caloric malnutrition: light diet. Wean off TPN today, she no longer wants it #CAD: Plavix, ASA #Pulm nodule: repeat CT 1 year #Diet: light diet, TPN #DVT ppx: on coumadin #Disp: cont inpt admission with IV diuresis, monitor bleeding with Lovenox bridge Subjective: less SOB. Legs still feel swollen Objective: Vital Signs Temp Pulse Resp BP Pulse Ox 36.4 C 85 15 122/50 H 94 07/12/17 04:06 07/12/17 04:06 07/12/17 04:06 07/12/17 04:06 07/12/17 04:06 Laboratory Results 07/12/17 05:27 07/12/17 05:27 07/11/17 07/12/17 07/13/17 05:59 05:59 05:59 Intake Total 1200 Output Total 1900 Balance -700 PT 19.8 SEC (12.0-15.0) H 07/12/17 05:27 INR 1.68 (0.83-1.16) H 07/12/17 05:27 - Physical Exam Constitutional: no apparent distress Eyes: PERRL Ears, Nose, Mouth, Throat: moist mucous membranes Cardiovascular: regular rate and rhythym, edema (+ 3 to knees) Respiratory: rhonchi (crackles at bases) Gastrointestinal: normoactive bowel sounds, other (surgical incision healing well) Genitourinary: no bladder fullness Skin: warm Musculoskeletal: full muscle strength ICD10 Worksheet Patient Problems: Problems Problem Status Onset Constipation Acute Large bowel obstruction Acute COPD (chronic obstructive pulmonary disease) Acute DVT (deep venous thrombosis) Acute Hypoxia Acute Osteoarthritis of hip Acute Pneumonia Acute chronic disease mgmt/transitional care Acute CAD (coronary atherosclerotic disease) Chronic
[2017-07-12] MEDS: IPRATROPIUM/ALBUTEROL 3 ML DEYVIAL IH SCH ×2 (09:24→21:29)
[2017-07-12] MEDS: FLUTICASONE NASAL 120 SPRAYS/16 GM MDI NS SCH (10:01)
[2017-07-12] MEDS: ENOXAPARIN 60 MG/0.6 ML SYR SC SCH ×2 (10:01→21:16)
[2017-07-12] MEDS: CLOPIDOGREL BISULFATE 75 MG TAB PO SCH (10:01)
[2017-07-12] MEDS: FAMOTIDINE 20 MG TAB PO SCH ×2 (10:01→21:21)
[2017-07-12] MEDS: FUROSEMIDE 20 MG/2 ML VIAL IVP SCH ×2 (10:02→15:16)
[2017-07-12] MEDS: POLYETHYLENE GLYCOL 3350 17 GM PKT PO SCH (10:02)
--- NOTE | 2017-07-12 13:30 | SOAPPROG ---
SOAP Progress Note Assessment/Plan: Assessment\Plan: 81yo F s/p ex-lap, adhesiolysis for LBO. S/p ileus vs SBO (resolving) - Reviewed events from last week. - Her small bowel is doing better now and she is tolerating a regular diet. Had mag citrate yesterday which helped with large BM - Staying here for multiple medical issues but from surgical standpoint she is making good progress. - Sounds like she will be staying here for another day or so. Would give reg diet and encourage PO intake - Will plan to remove willi tomorrow 06/27/17 12:16 06/28/17 09:05 06/29/17 12:41 07/01/17 12:31 07/02/17 11:23 07/12/17 13:26 Subjective: In good spirits, had a large BM yesterday. Continues to tolerate a regular diet , not much appetite tho. Objective: Vital Signs Temp Pulse Resp BP Pulse Ox 36.6 C 75 16 116/55 L 95 07/12/17 08:42 07/12/17 09:25 07/12/17 09:25 07/12/17 08:42 07/12/17 09:25 Laboratory Results 07/12/17 05:27 07/12/17 05:27 07/11/17 07/12/17 07/13/17 05:59 05:59 05:59 Intake Total 1200 Output Total 1900 550 Balance -700 -550 PT 19.8 SEC (12.0-15.0) H 07/12/17 05:27 INR 1.68 (0.83-1.16) H 07/12/17 05:27 ICD10 Worksheet Patient Problems: Problems Problem Status Onset Constipation Acute Large bowel obstruction Acute COPD (chronic obstructive pulmonary disease) Acute DVT (deep venous thrombosis) Acute Hypoxia Acute Osteoarthritis of hip Acute Pneumonia Acute chronic disease mgmt/transitional care Acute CAD (coronary atherosclerotic disease) Chronic
[2017-07-12] MEDS: OXYCODONE/APAP 5/325 TAB PO PRN (15:17)
[2017-07-12] MEDS ORDERED: WARFARIN SODIUM 4 MG TAB PO ONE (16:00)
[2017-07-12 20:46] VITALS: TEMP 97.9
[2017-07-12] MEDS: ONDANSETRON 4 MG/2 ML VIAL IVP PRN (21:17)
[2017-07-12] MEDS: PRAVASTATIN SODIUM 20 MG TAB PO SCH (21:17)
[2017-07-12] MEDS: VERAPAMIL ER 180 MG TAB PO SCH (21:21)
[2017-07-12] MEDS: TIOTROPIUM INHALER 18 MCG/DOSE 5 DOSE/MDI IH SCH (21:32)
[2017-07-13 07:05] LABS: INR 2.75 (0.83-1.16); PROTIME(PATIENT) 29.4 SEC (12.0-15.0)
[2017-07-13] MEDS: POLYETHYLENE GLYCOL 3350 17 GM PKT PO SCH (09:11)
[2017-07-13] MEDS: FUROSEMIDE 20 MG/2 ML VIAL IVP SCH (09:12)
[2017-07-13] MEDS: FAMOTIDINE 20 MG TAB PO SCH (09:12)
[2017-07-13] MEDS: ENOXAPARIN 60 MG/0.6 ML SYR SC SCH (09:14)
[2017-07-13] MEDS: FLUTICASONE NASAL 120 SPRAYS/16 GM MDI NS SCH (09:15)
[2017-07-13 09:42] VITALS: BP 126/59; RESP 18
--- NOTE | 2017-07-13 10:24 | SOAPPROG ---
SOAP Progress Note Assessment/Plan: Assessment\Plan: 81yo F s/p ex-lap, adhesiolysis for LBO. S/p ileus vs SBO (resolving) - willi removed today - pain controlled - Tolerating reg diet, having bowel function - ok for dc when medicine happy with remainder of medical issues 06/27/17 12:16 06/28/17 09:05 06/29/17 12:41 07/01/17 12:31 07/02/17 11:23 07/12/17 13:26 07/13/17 10:23 Subjective: Tolerating diet, still having bowel function Objective: Vital Signs Temp Pulse Resp BP Pulse Ox 36.6 C 85 18 126/59 H 92 07/13/17 09:41 07/13/17 09:41 07/13/17 09:41 07/13/17 09:41 07/13/17 09:41 Laboratory Results 07/12/17 05:27 07/13/17 06:35 07/12/17 07/13/17 07/14/17 05:59 05:59 05:59 Intake Total 1200 440 Output Total 1900 550 Balance -700 -110 PT 29.4 SEC (12.0-15.0) H D 07/13/17 06:35 INR 2.75 (0.83-1.16) H 07/13/17 06:35 ICD10 Worksheet Patient Problems: Problems Problem Status Onset Constipation Acute Large bowel obstruction Acute COPD (chronic obstructive pulmonary disease) Acute DVT (deep venous thrombosis) Acute Hypoxia Acute Osteoarthritis of hip Acute Pneumonia Acute chronic disease mgmt/transitional care Acute CAD (coronary atherosclerotic disease) Chronic
[2017-07-13] MEDS: IPRATROPIUM/ALBUTEROL 3 ML DEYVIAL IH SCH (10:29)
[2017-07-13 10:36] VITALS: PULSE 77; O2SAT 94
--- NOTE | 2017-07-13 11:18 | PDIAF ---
- Diagnosis Code Status: Limited Resuscitation - Medication Management Discharge Medications: Medications to Continue on Transfer Clopidogrel Bisulfate [Plavix (*)] 75 mg PO Q2D@2200 11/28/11 [Last Taken ] Pravastatin Sodium [Pravachol] 40 mg PO HS 06/01/13 [Last Taken 06/25/17] Sennosides [Senokot] 2 tab PO Q2D PRN 06/01/13 [Last Taken 06/03/17] Tiotropium Inhaler [Spiriva Inhaler (RX)] 1 cap IH HS 06/01/13 [Last Taken 06/25] Verapamil ER [Calan SR/ER 180MG (*)] 180 mg PO HS 06/01/13 [Last Taken 06/25/17] Albuterol [Proventil Inhaler HFA (*)] 2 puffs IH TID PRN 01/14/15 [Last Taken 10:00] Fluticasone Nasal [Flonase Nasal [place]] 1 sprays EACHNARE DAILY PRN 01/14/15 [ Last Taken 06/04/17] Docusate Sodium [Colace 100 MG (*)] 100 mg PO DAILY PRN 07/06/16 [Last Taken ] oxyCODONE HCL/ACETAMINOPHEN [Percocet 5-325 mg Tablet] 1 each PO HS 06/07/17 [ Last Taken 06/06/17 22:00] Furosemide [Lasix 20 MG (*)] 20 mg PO BIDDIUR #60 tab 06/09/17 [Last Taken 06/26] Acetaminophen [Tylenol 325mg (*)] 650 mg PO Q4HRS PRN tab 07/13/17 [Last Taken Unknown] Calcium Carbonate [Tums 500MG (*)] 500 - 1,000 mg PO TID PRN tab.chew 07/13/17 [Last Taken Unknown] Famotidine [Pepcid 20 MG (*)] 20 mg PO BID tab 07/13/17 [Last Taken Unknown] Fluticasone Nasal [Flonase Nasal [place]] 1 sprays EACHNARE Q12H PRN mdi [Last Taken Unknown] Fluticasone Nasal [Flonase Nasal [place]] 1 sprays NS DAILY mdi 07/13/17 [Last Taken Unknown] LORazepam [Ativan (*)] 1 mg PO HS PRN tab 07/13/17 [Last Taken Unknown] Polyethylene Glycol 3350 [Miralax 17 gm (*)] 17 gm PO DAILY pkt 07/13/17 [Last Taken Unknown] Warfarin Sodium 2 mg PO DAILY #30 tablet 07/13/17 [Last Taken Unknown] oxyCODONE/APAP 5/325 [Percocet 5/325 (*)] 1 - 2 tab PO Q4HRS PRN tab 07/13/17 [ Last Taken Unknown] Discharge Medications: Refer to the Discharge Home Medication list for PRN reason. - Orders Services needed: Registered Nurse, Certified Primer Powder Blender Wet, Physical Therapy, Occupational Therapy Isolation Type: None Diet Recommendation: no restrictions on diet Weigh Patient: weekly Wound Care Instructions: surgical incision per routine Additional: Hold coumadin today 07/13/17 (goal INR 2-3) - Labs/Radiology CBC w/diff Date: 07/19/17 PT/INR Date: 07/14/17 (q2 days until INR stable) - Follow Up Care Current Providers and Referrals: River Lee MD [Primary Care Provider] - As per Instructions Holger Chirinos MD [Medical Doctor] - follow up in 2 weeks
--- NOTE | 2017-07-13 11:18 | PDDCSUM ---
Discharge Summary Discharge Summary: Dates of service 06/26-07/13/17 consultations: general surgery, GI Procedures performed: ex lap/VIJAY surgery, colonoscopy, barium enema, PICC, abdominal CT Hospital course by problem: LBO/SBO/sigmoid volvulus: s/p adhesiolysis. Having BMs. Regular diet. [place] to be re #Leukocytosis: improved, presumably stress response and related to above # hospital acquired Aspiration PNA: completed 7-days Ertapenem #Acute hypoxic resp failure: improved. 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 INR now therapeutic and increased dramatically overnight, will hold coumadin day of discharge and resume at lower dose. #Decompensated diastolic HF: nearing euvolemia, will monitor weights and diurese as needed per op doctor #Protein caloric malnutrition: light diet. Wean off TPN today, she no longer wants it #CAD: Plavix, ASA #Pulm nodule: repeat CT 1 year #Diet: light diet, TPN #DVT ppx: on coumadin dc to snf f/u with MD at [facility], surgery and PCP after dc from [facility]
--- NOTE | 2017-07-13 11:18 | PDDCSUM ---
Discharge Summary Discharge Summary: Dates of service 06/26-07/13/17 consultations: general surgery, GI Procedures performed: ex lap/VIJAY surgery, colonoscopy, barium enema, PICC, abdominal CT Hospital course by problem: LBO/SBO/sigmoid volvulus: s/p adhesiolysis. Having BMs. Regular diet. [place] to be re #Leukocytosis: improved, presumably stress response and related to above # hospital acquired Aspiration PNA: completed 7-days Ertapenem #Acute hypoxic resp failure: improved. 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 INR now therapeutic and increased dramatically overnight, will hold coumadin day of discharge and resume at lower dose. #Decompensated diastolic HF: nearing euvolemia, will monitor weights and diurese as needed per op doctor #Protein caloric malnutrition: light diet. Wean off TPN today, she no longer wants it #CAD: Plavix, ASA #Pulm nodule: repeat CT 1 year #Diet: light diet, TPN #DVT ppx: on coumadin dc to snf f/u with MD at [facility], surgery and PCP after dc from [facility]
--- NOTE | 2017-07-13 11:18 | PDDCSUM ---
Discharge Summary Discharge Summary: Dates of service 06/26-07/13/17 consultations: general surgery, GI Procedures performed: ex lap/VIJAY surgery, colonoscopy, barium enema, PICC, abdominal CT Hospital course by problem: LBO/SBO/sigmoid volvulus: s/p adhesiolysis. Having BMs. Regular diet. [place] to be re #Leukocytosis: improved, presumably stress response and related to above # hospital acquired Aspiration PNA: completed 7-days Ertapenem #Acute hypoxic resp failure: improved. 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 INR now therapeutic and increased dramatically overnight, will hold coumadin day of discharge and resume at lower dose. #Decompensated diastolic HF: nearing euvolemia, will monitor weights and diurese as needed per op doctor #Protein caloric malnutrition: light diet. Wean off TPN today, she no longer wants it #CAD: Plavix, ASA #Pulm nodule: repeat CT 1 year #Diet: light diet, TPN #DVT ppx: on coumadin dc to snf f/u with MD at [facility], surgery and PCP after dc from [facility]
--- NOTE | 2017-07-14 11:57 | ASDISCHSUM ---
Discharge Information Plan Status:Has needs-TBD Medically Cleared to Leave:07/12/2017 Discharge Date:07/13/2017 05:05 PM D/C Disposition:Prison Facility ADT D/C Disposition:Prison Facility Projected Discharge Date:07/13/2017 05:00 PM Transportation at D/C:Family Discharge Delay Reason: Follow-Up Date:07/13/2017 05:00 PM Discharge Slot: Final Diagnosis:Large Bowel Obstruction Placement Information Referral Type:*Care Home/SNF Referral ID:[id number] Provider Name:[facility] Address 1:[address] Address 2: City:[place] Selection Factors: State:[place] Patient Contact Information Contact Name:BETH Relationship:Son Address:[address] City:[place] Alternate Phone: [facility]/Zip Code:[place] [address] Email: Financial Information Financial Class: Primary Plan Desc:MEDICARE INPATIENT Primary Plan Number:[id number] Secondary Plan Desc:[facility] Secondary Plan Number:[id number] Assessment Information [facility] CM Progress Note CM Note CM Note Notes: Reviewed chart re: d/c poc, pt's progress. Pt admitted w/ lg bowel obstruction, constipation x 8-10 days. Pt was recently discharged for COPD exacerbation/CHF. Hx includes PE/DVT, COPD, hyperlipidemia, CAD, s/p stent, HTN, nocturnal 02 and diastolic CHF. Pt lives w/ her son who is blind. Per MD notes, pt scheduled for a limited colonoscopy Sun for concern of a tumor; pt will also need to f/u for nodule on R lower lobe. Discharge needs remain TBD at this time. CM will cont to follow. Date Signed: 06/27/2017 06:46 PM Electronically Signed By:Cari Valenzuela RN [facility] CM Progress Note CM Note CM Note Notes: Still uncertain what patient will need on discharge. Patient to surgery for lysis of adhesions. Patient also had an endoscopy. Case management will continue to follow. Date Signed: 06/28/2017 04:50 PM Electronically Signed By:RICHARD Angeles [facility] CM Progress Note CM Note CM Note Notes: Discharge needs still to be determined since patient is still having no bowel function and is extremely uncomfortable. Will follow up following reassessment in the morning regarding patients needs. Case management will continue to follow. Date Signed: 06/29/2017 05:43 PM Electronically Signed By:RICHARD Angeles [facility] CM Progress Note CM Note CM Note Notes: Reviewed chart and d/w RN. PT recommending HHC. Pt refusing HHC b/c she says she cannot be homebound. Pt lives at home w/son. Pt asking about someone to come and go on walks/hikes with her. She says she is not able to afford private duty home care. I recommended she call [facility] to see if they have volunteers who do this kind of thing; she plans on contacting them. CM available for changes/needs. Date Signed: 06/30/2017 02:23 PM Electronically Signed By:Ansley Bain RN [facility] CM Progress Note CM Note CM Note Notes: Per hospitalist's note, pt had a "bad" day today with SOB and increased abdominal distention. She refused PT today and has refused homecare. The d/c plan is still home with no CM needs but will continue to assess for any change in d/c needs. Date Signed: 07/04/2017 04:24 PM Electronically Signed By:RICHARD Damico [facility] CM Progress Note CM Note CM Note Notes: Spoke w/MD, PT now recommending SNF. Pt is being started on TPN and bowel function still has not returned. After discussing with , will hold off talking to pt about SNF as she is 5-7 days away from dc. Current Discharge Plan: Discuss possible SNF placement, if not then dc home w/homecare. Date Signed: 07/06/2017 04:33 PM Electronically Signed By:Shanae Patel RN [facility] CM Progress Note CM Note CM Note Notes: Met with pt and her son and dtr today to discuss DC plans. PT is recommending SNF. Discussed this with pt and she agreed and chose [facility]. Son and dtr in agreement too. Faxed referral to [facility]. C/M will continue to follow. Date Signed: 07/08/2017 03:01 PM Electronically Signed By:Cyndy Asher LCSW [facility] CM Progress Note CM Note CM Note Notes: [facility] asked to be faxed pt's TPN formula so they can determine if they can take pt. Per Dr Lopez, pt will likely DC on TPN. DC unknown. C/M to follow. Date Signed: 07/09/2017 02:03 PM Electronically Signed By:Cyndy Asher LCSW [facility] CM Progress Note CM Note CM Note Notes: Plan had been that patient would most likely discharge to [facility] rehab today but Dr. Lopez said patient is not ready yet, She says that she will discontinue the TPN and will discharge without TPN. Patient will be reassessed tomorrow for discharge. [facility] notified that patient will not discharge today. Also, patient did participate in therapies today. [facility] rehab notified by josé miguel of progress with therapies. Case management will continue to follow. Date Signed: 07/10/2017 12:24 PM Electronically Signed By:RICHARD Angeles [facility] CM Progress Note CM Note CM Note Notes: Met with pt and dtr Khadijah today to answer questions about DC. Khadijah would like to be notified when pt DC's. Number is on board. Pt anxious to DC but Dr Lopez states pt needs at least another day. Updated [facility] and they are holding bed. C/M to follow. Date Signed: 07/11/2017 12:32 PM Electronically Signed By:Cyndy Asher LCSW Intervention Information Intervention Type:*IM-Signed Date of Service:07/13/2017 01:40 PM Patient Type:Inpatient Staff Member:Mariposa Welch Hours: Discipline: Severity: Comment:
--- NOTE | 2017-07-14 11:57 | ASDISCHSUM ---
Discharge Information Plan Status:Has needs-TBD Medically Cleared to Leave:07/12/2017 Discharge Date:07/13/2017 05:05 PM D/C Disposition:Custodial Facility ADT D/C Disposition:Custodial Facility Projected Discharge Date:07/13/2017 05:00 PM Transportation at D/C:Family Discharge Delay Reason: Follow-Up Date:07/13/2017 05:00 PM Discharge Slot: Final Diagnosis:Large Bowel Obstruction Placement Information Referral Type:*Retirement/SNF Referral ID:[id number] Provider Name:[facility] Address 1:[address] Address 2: City:[place] Selection Factors: State:[place] Patient Contact Information Contact Name:BETH Relationship:Son Address:[address] City:[place] Alternate Phone: [facility]/Zip Code:[place] [address] Email: Financial Information Financial Class: Primary Plan Desc:MEDICARE INPATIENT Primary Plan Number:[id number] Secondary Plan Desc:[facility] Secondary Plan Number:[id number] Assessment Information [facility] CM Progress Note CM Note CM Note Notes: Reviewed chart re: d/c poc, pt's progress. Pt admitted w/ lg bowel obstruction, constipation x 8-10 days. Pt was recently discharged for COPD exacerbation/CHF. Hx includes PE/DVT, COPD, hyperlipidemia, CAD, s/p stent, HTN, nocturnal 02 and diastolic CHF. Pt lives w/ her son who is blind. Per MD notes, pt scheduled for a limited colonoscopy Sun for concern of a tumor; pt will also need to f/u for nodule on R lower lobe. Discharge needs remain TBD at this time. CM will cont to follow. Date Signed: 06/27/2017 06:46 PM Electronically Signed By:Cari Valenzuela RN [facility] CM Progress Note CM Note CM Note Notes: Still uncertain what patient will need on discharge. Patient to surgery for lysis of adhesions. Patient also had an endoscopy. Case management will continue to follow. Date Signed: 06/28/2017 04:50 PM Electronically Signed By:RICHARD Angeles [facility] CM Progress Note CM Note CM Note Notes: Discharge needs still to be determined since patient is still having no bowel function and is extremely uncomfortable. Will follow up following reassessment in the morning regarding patients needs. Case management will continue to follow. Date Signed: 06/29/2017 05:43 PM Electronically Signed By:RICHARD Angeles [facility] CM Progress Note CM Note CM Note Notes: Reviewed chart and d/w RN. PT recommending HHC. Pt refusing HHC b/c she says she cannot be homebound. Pt lives at home w/son. Pt asking about someone to come and go on walks/hikes with her. She says she is not able to afford private duty home care. I recommended she call [facility] to see if they have volunteers who do this kind of thing; she plans on contacting them. CM available for changes/needs. Date Signed: 06/30/2017 02:23 PM Electronically Signed By:Ansley Bain RN [facility] CM Progress Note CM Note CM Note Notes: Per hospitalist's note, pt had a "bad" day today with SOB and increased abdominal distention. She refused PT today and has refused homecare. The d/c plan is still home with no CM needs but will continue to assess for any change in d/c needs. Date Signed: 07/04/2017 04:24 PM Electronically Signed By:RICHARD Damico [facility] CM Progress Note CM Note CM Note Notes: Spoke w/MD, PT now recommending SNF. Pt is being started on TPN and bowel function still has not returned. After discussing with , will hold off talking to pt about SNF as she is 5-7 days away from dc. Current Discharge Plan: Discuss possible SNF placement, if not then dc home w/homecare. Date Signed: 07/06/2017 04:33 PM Electronically Signed By:Shanae Patel RN [facility] CM Progress Note CM Note CM Note Notes: Met with pt and her son and dtr today to discuss DC plans. PT is recommending SNF. Discussed this with pt and she agreed and chose [facility]. Son and dtr in agreement too. Faxed referral to [facility]. C/M will continue to follow. Date Signed: 07/08/2017 03:01 PM Electronically Signed By:Cyndy Asher LCSW [facility] CM Progress Note CM Note CM Note Notes: [facility] asked to be faxed pt's TPN formula so they can determine if they can take pt. Per Dr Lopez, pt will likely DC on TPN. DC unknown. C/M to follow. Date Signed: 07/09/2017 02:03 PM Electronically Signed By:Cyndy Asher LCSW [facility] CM Progress Note CM Note CM Note Notes: Plan had been that patient would most likely discharge to [facility] rehab today but Dr. Lopez said patient is not ready yet, She says that she will discontinue the TPN and will discharge without TPN. Patient will be reassessed tomorrow for discharge. [facility] notified that patient will not discharge today. Also, patient did participate in therapies today. [facility] rehab notified by josé miguel of progress with therapies. Case management will continue to follow. Date Signed: 07/10/2017 12:24 PM Electronically Signed By:RICHARD Angeles [facility] CM Progress Note CM Note CM Note Notes: Met with pt and dtr Khadijah today to answer questions about DC. Khadijah would like to be notified when pt DC's. Number is on board. Pt anxious to DC but Dr Lopez states pt needs at least another day. Updated [facility] and they are holding bed. C/M to follow. Date Signed: 07/11/2017 12:32 PM Electronically Signed By:Cyndy Asher LCSW Intervention Information Intervention Type:*IM-Signed Date of Service:07/13/2017 01:40 PM Patient Type:Inpatient Staff Member:Mariposa Welch Hours: Discipline: Severity: Comment:
--- NOTE | 2017-07-14 11:57 | ASDISCHSUM ---
Discharge Information Plan Status:Has needs-TBD Medically Cleared to Leave:07/12/2017 Discharge Date:07/13/2017 05:05 PM D/C Disposition:Retirement Facility ADT D/C Disposition:Retirement Facility Projected Discharge Date:07/13/2017 05:00 PM Transportation at D/C:Family Discharge Delay Reason: Follow-Up Date:07/13/2017 05:00 PM Discharge Slot: Final Diagnosis:Large Bowel Obstruction Placement Information Referral Type:*Retirement/SNF Referral ID:[id number] Provider Name:[facility] Address 1:[address] Address 2: City:[place] Selection Factors: State:[place] Patient Contact Information Contact Name:BETH Relationship:Son Address:[address] City:[place] Alternate Phone: [facility]/Zip Code:[place] [address] Email: Financial Information Financial Class: Primary Plan Desc:MEDICARE INPATIENT Primary Plan Number:[id number] Secondary Plan Desc:[facility] Secondary Plan Number:[id number] Assessment Information [facility] CM Progress Note CM Note CM Note Notes: Reviewed chart re: d/c poc, pt's progress. Pt admitted w/ lg bowel obstruction, constipation x 8-10 days. Pt was recently discharged for COPD exacerbation/CHF. Hx includes PE/DVT, COPD, hyperlipidemia, CAD, s/p stent, HTN, nocturnal 02 and diastolic CHF. Pt lives w/ her son who is blind. Per MD notes, pt scheduled for a limited colonoscopy Sun for concern of a tumor; pt will also need to f/u for nodule on R lower lobe. Discharge needs remain TBD at this time. CM will cont to follow. Date Signed: 06/27/2017 06:46 PM Electronically Signed By:Cari Valenzuela RN [facility] CM Progress Note CM Note CM Note Notes: Still uncertain what patient will need on discharge. Patient to surgery for lysis of adhesions. Patient also had an endoscopy. Case management will continue to follow. Date Signed: 06/28/2017 04:50 PM Electronically Signed By:RICHARD Angeles [facility] CM Progress Note CM Note CM Note Notes: Discharge needs still to be determined since patient is still having no bowel function and is extremely uncomfortable. Will follow up following reassessment in the morning regarding patients needs. Case management will continue to follow. Date Signed: 06/29/2017 05:43 PM Electronically Signed By:RICHARD Angeles [facility] CM Progress Note CM Note CM Note Notes: Reviewed chart and d/w RN. PT recommending HHC. Pt refusing HHC b/c she says she cannot be homebound. Pt lives at home w/son. Pt asking about someone to come and go on walks/hikes with her. She says she is not able to afford private duty home care. I recommended she call [facility] to see if they have volunteers who do this kind of thing; she plans on contacting them. CM available for changes/needs. Date Signed: 06/30/2017 02:23 PM Electronically Signed By:Ansley Bain RN [facility] CM Progress Note CM Note CM Note Notes: Per hospitalist's note, pt had a "bad" day today with SOB and increased abdominal distention. She refused PT today and has refused homecare. The d/c plan is still home with no CM needs but will continue to assess for any change in d/c needs. Date Signed: 07/04/2017 04:24 PM Electronically Signed By:RICHARD Damico [facility] CM Progress Note CM Note CM Note Notes: Spoke w/MD, PT now recommending SNF. Pt is being started on TPN and bowel function still has not returned. After discussing with , will hold off talking to pt about SNF as she is 5-7 days away from dc. Current Discharge Plan: Discuss possible SNF placement, if not then dc home w/homecare. Date Signed: 07/06/2017 04:33 PM Electronically Signed By:Shanae Patel RN [facility] CM Progress Note CM Note CM Note Notes: Met with pt and her son and dtr today to discuss DC plans. PT is recommending SNF. Discussed this with pt and she agreed and chose [facility]. Son and dtr in agreement too. Faxed referral to [facility]. C/M will continue to follow. Date Signed: 07/08/2017 03:01 PM Electronically Signed By:Cyndy Asher LCSW [facility] CM Progress Note CM Note CM Note Notes: [facility] asked to be faxed pt's TPN formula so they can determine if they can take pt. Per Dr Lopez, pt will likely DC on TPN. DC unknown. C/M to follow. Date Signed: 07/09/2017 02:03 PM Electronically Signed By:Cyndy Asher LCSW [facility] CM Progress Note CM Note CM Note Notes: Plan had been that patient would most likely discharge to [facility] rehab today but Dr. Lopez said patient is not ready yet, She says that she will discontinue the TPN and will discharge without TPN. Patient will be reassessed tomorrow for discharge. [facility] notified that patient will not discharge today. Also, patient did participate in therapies today. [facility] rehab notified by josé miguel of progress with therapies. Case management will continue to follow. Date Signed: 07/10/2017 12:24 PM Electronically Signed By:RICHARD Angeles [facility] CM Progress Note CM Note CM Note Notes: Met with pt and dtr Khadijah today to answer questions about DC. Khadijah would like to be notified when pt DC's. Number is on board. Pt anxious to DC but Dr Lopez states pt needs at least another day. Updated [facility] and they are holding bed. C/M to follow. Date Signed: 07/11/2017 12:32 PM Electronically Signed By:Cyndy Asher LCSW Intervention Information Intervention Type:*IM-Signed Date of Service:07/13/2017 01:40 PM Patient Type:Inpatient Staff Member:Mariposa Welch Hours: Discipline: Severity: Comment:
== END 2017-07-13 17:05 | DRG 335 ==
LOC: INTOOBSV 19:34 → F1N 21:12 → OBSVTOIN 06-27 12:21
PROVIDERS: ADMIT Student in an Organized Health Care Education/Training Program; ATTEND Student in an Organized Health Care Education/Training Program
PROC: 0DJD8ZZ Inspection of Lower Intestinal Tract, Via Natural or Artificial Opening Endoscopic (ICD-10-PCS; 2017-06-27)
PROC: 30233K1 Transfusion of Nonautologous Frozen Plasma into Peripheral Vein, Percutaneous Approach (ICD-10-PCS; 2017-06-27)
PROC: 0DNG0ZZ Release Left Large Intestine, Open Approach (ICD-10-PCS; principal; 2017-06-27 10:30)
PROC: 3E0436Z Introduction of Nutritional Substance into Central Vein, Percutaneous Approach (ICD-10-PCS; 2017-07-07)
PROC: 02HV33Z Insertion of Infusion Device into Superior Vena Cava, Percutaneous Approach (ICD-10-PCS; 2017-07-07)
DX: K56.52 Intestinal adhesions [bands] with complete obstruction (principal); K91.89 Other postprocedural complications and disorders of digestive system; K56.0 Paralytic ileus; J69.0 Pneumonitis due to inhalation of food and vomit; J96.21 Acute and chronic respiratory failure with hypoxia; I11.0 Hypertensive heart disease with heart failure; I50.33 Acute on chronic diastolic (congestive) heart failure; J44.9 Chronic obstructive pulmonary disease, unspecified; E46 Unspecified protein-calorie malnutrition; I25.10 Atherosclerotic heart disease of native coronary artery without angina pectoris; Z95.5 Presence of coronary angioplasty implant and graft; Z79.82 Long term (current) use of aspirin; Z79.02 Long term (current) use of antithrombotics/antiplatelets; E78.00 Pure hypercholesterolemia, unspecified; Z86.718 Personal history of other venous thrombosis and embolism; Z86.711 Personal history of pulmonary embolism; Z79.01 Long term (current) use of anticoagulants; R79.1 Abnormal coagulation profile; T45.515A Adverse effect of anticoagulants, initial encounter; R91.1 Solitary pulmonary nodule; K64.4 Residual hemorrhoidal skin tags; Z96.641 Presence of right artificial hip joint; Z23 Encounter for immunization
CPT/HCPCS: 96374; 97116-GP; 97161-GP; 97165-GO; 97530-GO; 97530-GP; C1729; C1751; G0008; G0378; G8978-GP-CI; G8978-GP-CJ; G8979-GP-CI; G8980-GP-CI; G8987-GO-CK; G8988-GO-CI; J0171; J1170; J1335; J1650; J1815; J1885; J1940; J2250; J2405; J2550; J2704; J2765; J3010; J3430; J3475; P9016; P9017; Q9967

== ENCOUNTER 2018-10-17 09:12 | Observation (INO) | payer OTHER ==
[2018-10-17] MEDS ORDERED: IPRATROPIUM/ALBUTEROL 3 ML DEYVIAL IH ONE (09:24)
[2018-10-17] MEDS ORDERED: methylPREDNISolone SOD SUCC 125 MG/2 ML VIAL IVP ONE (09:24)
--- NOTE | 2018-10-17 09:26 | EDPHY ---
H & P Stated Complaint: SOB,CP,BARNARD Time Seen by Provider: 10/17/18 09:17 HPI/ROS: CHIEF COMPLAINT: Shortness of breath, generalized weakness HISTORY OF PRESENT ILLNESS: Patient is an 83-year-old female with a history of COPD, CHF and recent diagnosis of shingles. She was seen by her proration clerk on and started on a prednisone course. He told her to come to the hospital if she worsened at all. Her son states that today she was so weak she could not walk down the stairs. She has not had a fever. She has not had any chest pain. No edema. The patient states that she thinks her prednisone is making her feel weak. She was also placed on valacyclovir for the shingles rash to her left axillary region. She has not been confused and is answering questions appropriately. Severity: Moderate Modifying factors: None REVIEW OF SYSTEMS: Constitutional: denies: chills, fever, recent illness, recent injury EENTM: denies: blurred vision, double vision, nose congestion Respiratory: See HPI Cardiac: denies: chest pain, irregular heart rate, lightheadedness, palpitations Gastrointestinal/Abdominal: denies: abdominal pain, diarrhea, nausea, vomiting, blood streaked stools Genitourinary: denies: dysuria, frequency, hematuria, pain Musculoskeletal: denies: joint pain, muscle pain Skin: See HPI Neurological: denies: headache, numbness, paresthesia, tingling, dizziness, weakness Hematologic/Lymphatic: denies: blood clots, easy bleeding, easy bruising Immunologic/allergic: denies: HIV/AIDS, transplant 10 systems reviewed and negative except as noted EXAM: GENERAL: Thin and in no acute distress. HEAD: Atraumatic, normocephalic. EYES: Pupils equal round and reactive to light, extraocular movements intact, sclera anicteric, conjunctiva are normal. ENT: TMs normal, nares patent, oropharynx clear without exudates. Moist mucous membranes. NECK: Normal range of motion, supple without lymphadenopathy or JVD. LUNGS: Mild wheezing bilaterally HEART: Regular rate and rhythm without murmurs, rubs or gallops. ABDOMEN: Soft, nontender, normoactive bowel sounds. No guarding, no rebound. No masses appreciated. BACK: No CVA tenderness, no spinal tenderness, step-offs or deformities EXTREMITIES: Normal range of motion, no pitting or edema. No clubbing or cyanosis. NEUROLOGICAL: Diffuse mild weakness, Cranial nerves II through XII grossly intact. Normal speech, normal gait. 5/5 strength, normal movement in all extremities, normal sensation, normal reflexes PSYCH: Normal mood, normal affect. Answers all questions appropriately SKIN: Warm, dry, normal turgor, no visible rashes or lesions. Source: Patient, EMS, Old records Exam Limitations: No limitations - Medical/Surgical History Hx Asthma: Yes Hx Chronic Respiratory Disease: Yes Hx Diabetes: No Hx Cardiac Disease: Yes Hx Renal Disease: No Hx Cirrhosis: No Hx Alcoholism: No Hx HIV/AIDS: No Hx Splenectomy or Spleen Trauma: No Other PMH: copd, stent, cad, htn, dvt - Family History Significant Family History: No pertinent family hx - Social History Smoking Status: Light smoker Alcohol Use: Sober Constitutional: Initial Vital Signs Temperature (C) 36.5 C 10/17/18 09:16 Heart Rate 83 10/17/18 09:16 Respiratory Rate 20 10/17/18 09:16 Blood Pressure 180/93 H 10/17/18 09:16 O2 Sat (%) 91 L 10/17/18 09:16 O2 Delivery Mode Room Air Allergies/Adverse Reactions: levofloxacin [From Levaquin] Allergy (Unknown, Verified 06/26/17 17:33) Unknown Home Medications: Medication Instructions Recorded Clopidogrel Bisulfate [Plavix (*)] 75 mg PO Q2D@21 11/28/11 Pravastatin Sodium [Pravachol] 40 mg PO HS 06/01/13 Sennosides [Senokot] 2 tab PO Q2D PRN 06/01/13 Tiotropium Inhaler [Spiriva 1 cap IH 06/01/13 Inhaler (RX)] Verapamil ER [Calan SR/ER 180MG 180 mg PO 06/01/13 (*)] Albuterol [Proventil Inhaler HFA 2 puffs IH QID 01/14/15 (*)] Fluticasone Nasal [Flonase Nasal 1 sprays EACHNARE DAILY PRN 01/14/15 Irving] Docusate Sodium [Colace 100 MG (*)] 100 mg PO DAILY PRN 07/06/16 oxyCODONE HCL/ACETAMINOPHEN 1 - 1.5 each PO HS 06/07/17 [Percocet 5-325 mg Tablet] Acetaminophen [Tylenol 325mg (*)] 650 mg PO Q4HRS PRN tab 07/13/17 Calcium Carbonate [Tums 500MG (*)] 500 - 1,000 mg PO TID PRN tab.chew 07/13/17 Famotidine [Pepcid 20 MG (*)] 20 mg PO BID tab 07/13/17 Polyethylene Glycol 3350 [Miralax 17 gm PO DAILY pkt 07/13/17 17 gm (*)] oxyCODONE/APAP 5/325 [Percocet 1 - 2 tab PO Q4HRS PRN tab 07/13/17 5/325 (*)] Herbals/Supplements -Info Only 1 ea PO DAILY 10/17/18 Ipratropium/Albuterol [Duoneb (*)] 3 ml IH QID 10/17/18 LORazepam [Ativan (*)] 0.5 mg PO HS PRN 10/17/18 Ava-3 Fatty Acids [Fish Oil 1000 1,000 mg PO DAILY 10/17/18 mg (*)] valACYclovir [Valtrex (*)] 500 mg PO TID 10/17/18 Medical Decision Making - Diagnostics EKG Interpretation: An EKG obtained and was read and documented in trace view. Please see trace view for full reading and report. Sinus rhythm, no acute ischemic changes, similar to previous Imaging: Discussed imaging studies w/ call box wirer Radiologist ED Course/Re-evaluation: 11:15 a.m. I discussed the case with the hospitalist service who accepted to Dr. Patel. Differential Diagnosis: Partial list of the Differential diagnosis considered include but were not limited to; COPD exacerbation, generalized weakness, zoster and although unlikely based on the history and physical exam, I also considered pneumonia, sepsis, encephalitis. - Data Points Laboratory Results: Laboratory Results 10/17/18 09:15 10/17/18 09:15 Medications Given: Discontinued Medications Albuterol (Proventil Inhaler) 2 puffs IH QID [facility] Stop: 04/15/19 15:59 Last Admin: 10/18/18 06:31 Dose: Not Given Albuterol/Ipratropium (Duoneb) 3 ml IH EDNOW ONE Stop: 10/17/18 09:25 Last Admin: 10/17/18 10:18 Dose: 3 ml Albuterol/Ipratropium (Duoneb) 3 ml IH QID [facility] Stop: 04/15/19 15:59 Last Admin: 10/18/18 16:19 Dose: 3 ml Budesonide (Budesonide 0.5mg/2ml Neb) 0.5 mg IH BID [facility] Stop: 04/15/19 13:59 Last Admin: 10/18/18 09:30 Dose: Not Given Clopidogrel Bisulfate (Plavix) 75 mg PO Q2D@21 [facility] Stop: 04/15/19 20:59 Last Admin: 10/17/18 21:47 Dose: 75 mg Enoxaparin Sodium (Lovenox) 40 mg SC DAILY [facility] Stop: 04/16/19 08:59 Last Admin: 10/18/18 10:00 Dose: 40 mg Fluticasone Propionate (Flonase Nasal Irving) 2 sprays EACHNARE HS PRN PRN Reason: Congestion Stop: 04/15/19 21:32 Last Admin: 10/18/18 14:01 Dose: 2 sprays Hydralazine HCl (Apresoline) 10 mg IVP Q6 PRN PRN Reason: SBP>160 Stop: 04/15/19 13:51 Last Admin: 10/17/18 15:35 Dose: 10 mg Famotidine/Sodium Chloride (Pepcid 20 Mg (Premix)) 50 mls @ 200 mls/hr IV Q12HRS [facility] Stop: 04/15/19 14:59 Last Admin: 10/18/18 10:00 Dose: 50 mls Influenza Virus Vaccine Quadrival (Flulaval Quad [id number] (6mo+)) 0.5 ml IM .ONCE ONE Stop: 10/18/18 17:37 Last Admin: 10/18/18 17:53 Dose: 0.5 ml Lorazepam (Ativan) 0.5 mg PO HS PRN PRN Reason: Sleep/Insomnia Stop: 04/15/19 13:09 Last Admin: 10/17/18 21:47 Dose: 0.5 mg Methylprednisolone Sodium Succinate (Solu-Medrol) 125 mg IVP EDNOW ONE Stop: 10/17/18 09:25 Last Admin: 10/17/18 10:18 Dose: Not Given Nicotine (Nicoderm Cq) 14 mg TD DAILY [facility] Stop: 04/15/19 13:59 Last Admin: 10/18/18 10:00 Dose: 14 mg Ondansetron HCl (Zofran) 4 mg IVP EDNOW ONE Stop: 10/17/18 09:54 Last Admin: 10/17/18 10:04 Dose: 4 mg Ondansetron HCl (Zofran) 4 mg IVP Q4 PRN PRN Reason: Nausea/Vomiting, Can't Take PO Stop: 04/15/19 13:13 Last Admin: 10/17/18 15:47 Dose: 4 mg Oxycodone/Acetaminophen (Percocet 5/325) 1 - 1.5 tab PO HS [facility] Stop: 10/27/18 20:59 Last Admin: 10/17/18 21:46 Dose: 1.5 tab Oxycodone/Acetaminophen (Percocet 5/325) 1 - 2 tab PO Q4HRS PRN PRN Reason: Pain, Severe Able to Take PO Stop: 10/27/18 13:09 Last Admin: 10/17/18 16:45 Dose: 1 tab Oxymetazoline HCl (Afrin Nasal [place]) 2 sprays EACHNARE BID PRN PRN Reason: Nasal congestion Stop: 04/15/19 21:32 Last Admin: 10/18/18 14:01 Dose: 2 sprays Pneumococcal 13-Valent Conj Vacc (Prevnar 13 Syringe) 0.5 ml IM .ONCE ONE Stop: 10/18/18 17:37 Last Admin: 10/18/18 17:55 Dose: 0.5 ml Polyethylene Glycol (Miralax) 17 gm PO DAILY [facility] Stop: 04/16/19 08:59 Last Admin: 10/18/18 10:00 Dose: 17 gm Pravastatin Sodium (Pravachol) 40 mg PO HS [facility] Stop: 04/15/19 20:59 Last Admin: 10/17/18 21:49 Dose: 40 mg Promethazine HCl (Phenergan) 6.25 mg IV Q6HRS PRN PRN Reason: Nausea/Vomiting, Can't Take PO Stop: 04/15/19 21:29 Last Admin: 10/17/18 21:49 Dose: 6.25 mg Tiotropium [place] (Spiriva Handihaler) 18 mcg IH HS [facility] Stop: 04/15/19 20:59 Last Admin: 10/17/18 21:16 Dose: 1 puffs Valacyclovir HCl (Valtrex) 500 mg PO TID [facility] Stop: 11/16/18 15:59 Last Admin: 10/18/18 16:26 Dose: 500 mg Verapamil HCl (Calan Sr) 180 mg PO HS [facility] Stop: 04/15/19 20:59 Last Admin: 10/17/18 21:47 Dose: 180 mg Departure - Departure Disposition: [facility] Acute Clinical Impression: Generalized weakness COPD (chronic obstructive pulmonary disease) Qualifiers: COPD type: unspecified COPD Qualified Code(s): J44.9 - Chronic obstructive pulmonary disease, unspecified Shingles rash Qualifiers: Herpes zoster complications: without complications Qualified Code(s): B02.9 - Zoster without complications Condition: Fair
[2018-10-17 09:44] LABS: PLATELET COUNT 297 10^3/uL (150-400)
[2018-10-17] MEDS ORDERED: ONDANSETRON 4 MG/2 ML VIAL IVP ONE (09:53)
--- NOTE | 2018-10-17 10:37 | CPEKG ---
Test Reason : OPEN Blood Pressure : / mmHG Vent. Rate : 082 BPM Atrial Rate : 080 BPM P-R Int : 114 ms QRS Dur : 080 ms QT Int : 425 ms P-R-T Axes : 027 044 074 degrees QTc Int : 497 ms Sinus rhythm Consider left ventricular hypertrophy Borderline prolonged QT interval Confirmed by Joe Barrgaan ([id number]) on 10/17/2018 10:37:04 AM Referred By: Joe Barragan Confirmed By:Joe Barragan
[2018-10-17] MEDS ORDERED: OXYCODONE/APAP 5/325 TAB PO PRN (13:10)
[2018-10-17] MEDS ORDERED: LORazepam 0.5 MG TAB PO PRN (13:10)
[2018-10-17] MEDS ORDERED: ACETAMINOPHEN 325 MG TAB PO PRN (13:14)
[2018-10-17] MEDS ORDERED: ONDANSETRON 4 MG/2 ML VIAL IVP PRN (13:14)
[2018-10-17] MEDS ORDERED: hydrALAZINE 20 MG/ML VIAL IVP PRN (13:52)
--- NOTE | 2018-10-17 14:31 | GHP ---
[f rep st] HISTORY AND PHYSICAL DATE OF ADMISSION: 10/17/2018 CHIEF COMPLAINT: Weakness and confusion. HISTORY: Porsche is an 83-year-old female who recently saw Dr. Andrey Muir as an outpatient and was started on steroids and ciprofloxacin for a COPD exacerbation. She also had new onset that day of a shingles rash and he started valacyclovir. Her breathing has improved, although it is not all the wa y to baseline, but she has become progressively more weak, to the point where she cannot walk and her son had to call 911 and ambulance to bring her to the ER today. He found her today to be disoriente d with disorganized thoughts. The patient feels very strongly that it is the prednisone doing all th is to her, as she has a long history of not tolerating steroids very well. She has had confusion fro m prednisone in the past. She gets nausea, vomiting, headaches, and joint pain, as well as weakness. She has already received 6 days of steroids and 6 days of antibiotics. She does not want to take t he ciprofloxacin either. PAST MEDICAL HISTORY: 1. COPD, oxygen at night only. 2. Pulmonary embolus and DVT. 3. Coronary artery disease status post stent. 4. Hypertension. 5. Diastolic congestive heart failure. 6. Small bowel obstruction and volvulus status post lysis of adhesions. PAST SURGICAL HISTORY: Total hip arthroplasty, appendectomy. MEDICATIONS: Please see computerized record for full detailed list. ALLERGIES: Levaquin. SOCIAL HISTORY: She continues to smoke 10 cigarettes per day. No alcohol. She lives with her son kathryn de leon has issues with blindness. REVIEW OF SYSTEMS: Complete review of systems obtained. Review of systems negative regarding consti tutional, HEENT, GI, pulmonary, cardiovascular, , hematology, musculoskeletal, endocrine, psych exc ept for positives and negatives as in her HPI. FAMILY HISTORY: Reviewed and noncontributory to presenting complaint. PHYSICAL EXAMINATION: GENERAL: Well-developed, well-nourished female, in no acute distress. VITAL SIGNS: Temperature 36.5, pulse 81, blood pressure 170/82, saturating 91% on room air. EYES: Normal conjunctivae. Pupils equal and reactive to light. ENT: Normal ears and nose. Hearing intact. No rmal teeth. Oropharynx moist. NECK: Trachea midline. No thyromegaly. CHEST: Normal respiratory effort. LUNGS: Some rhonchi scattered, minimal wheeze. CARDIOVASCULAR SYSTEM: Regular rhythm. No murmur. No lower extremity edema. ABDOMEN: Soft, nontender. No hepatosplenomegaly. SKIN: Warm, dry, intact without rash except for a posterior left axillary shingles rash, small area. Area is he aling nicely. There are some scabbed lesions. There is no surrounding cellulitis. MUSCULOSKELETAL: No cyanosis or clubbing. Strength 5/5 upper and lower extremities. NEUROLOGIC: Cranial nerves in tact. Normal sensation to light touch. PSYCH ASSESSMENT: She is currently awake, alert, and intera ctive. Confusion seems resolved with normal judgment and normal memory at this time. Her and her so n are angry regarding the care they received in the emergency room. LABORATORY DATA: White count 14.72, hematocrit 45.1, platelets 297. Sodium 134, potassium 4.5, chlo ride 96, bicarb 30, BUN 13, creatinine 0.4, glucose 156. Respiratory PCR is negative. EKG viewed by me and my personal interpretation is normal sinus rhythm, no ST or T-wave changes. Chest x-ray is n egative. ASSESSMENT AND PLAN: 1. Chronic obstructive pulmonary disease exacerbation. She has already received 6 days of prednison e and ciprofloxacin and this may be adequate, especially since the risk-benefit ratio of these drugs may have tipped in favor of discontinuation due to the extensive side effects she is having. I do th ink her lung status is adequate at this point and we will do a trial of holding prednisone and ciprof loxacin to see how she does. We will continue aggressive respiratory therapies in addition to starti ng an inhaled steroid which may be better for her in reducing the systemic affects. She states she t akes Pulmicort at home, although I do not see it on her home medication reconciliation. 2. Toxic encephalopathy. This is probably due to prednisone. We will hold this medication. We jair l consult Physical Therapy/Occupational Therapy. 3. Leukocytosis. I also suspect this is due to steroids. We will monitor for infection. 4. Shingles. Continue valacyclovir. This is a very small area that is involved and it appears to b e crusting nicely. I do not see any evidence of disseminated disease. 5. Tobacco dependence. She continues to smoke 10 cigarettes per day. We will offer a nicotine patc h. 6. Coronary artery disease, status post previous stent. Continue Plavix and statin. 7. Hypertension. Blood pressure very elevated in the emergency room. We will continue her usual ho me diltiazem and can add p.r.n. IV hydralazine for extreme blood pressure elevation. 8. History of pulmonary embolus and deep vein thrombosis. She is high risk. We will place her on s ubcutaneous Lovenox prophylaxis during her hospitalization. ADMISSION STATUS: 1. We will admit to observation. Re-evaluate tomorrow regarding chronic obstructive pulmonary disea se status and ongoing need for hospitalization. 2. Deep vein thrombosis prophylaxis as above. /[id number]/MODL
[2018-10-17] MEDS: NICOTINE 14 MG/24 HR PATCH TD SCH (15:30)
[2018-10-17] MEDS: valACYclovir 500 MG TAB PO SCH ×2 (15:30→21:47)
[2018-10-17] MEDS: FAMOTIDINE 20 MG/NACL 50 ML IV SCH ×2 (15:30→21:03)
[2018-10-17] MEDS: IPRATROPIUM/ALBUTEROL 3 ML DEYVIAL IH SCH ×3 (15:31→21:16)
[2018-10-17] MEDS: ALBUTEROL 60 PUFFS/8 GM MDI IH SCH ×2 (15:31→21:31)
[2018-10-17] MEDS: BUDESONIDE 0.5 MG/2 ML AMPUL.NEB IH SCH ×2 (15:46→21:31)
--- NOTE | 2018-10-17 16:43 | ASMTCMCOM ---
CM Note CM Note Notes: Chart reviewed. 83 year old female admitted via ED with SOB. Significant hx including CAD, COPD, PE and CHF. CM to follow for needs, Plan: TBD Date Signed: 10/17/2018 04:42 PM Electronically Signed By:Lupe Cohen RN
[2018-10-17] MEDS ORDERED: PRAVASTATIN SODIUM 40 MG TAB PO SCH (21:00)
[2018-10-17] MEDS ORDERED: CIPROFLOXACIN 500 MG TAB PO SCH (21:00)
[2018-10-17] MEDS ORDERED: CLOPIDOGREL BISULFATE 75 MG TAB PO SCH (21:00)
[2018-10-17] MEDS ORDERED: OXYCODONE/APAP 5/325 TAB PO SCH (21:00)
[2018-10-17] MEDS ORDERED: FAMOTIDINE 20 MG TAB PO SCH (21:00)
[2018-10-17] MEDS ORDERED: VERAPAMIL ER 180 MG TAB PO SCH (21:00)
[2018-10-17] MEDS ORDERED: TIOTROPIUM INHALER 18 MCG/DOSE 5 DOSE/MDI IH SCH (21:00)
[2018-10-17] MEDS ORDERED: PROMETHAZINE HCL 25 MG/ML INJ IV PRN (21:30)
[2018-10-17] MEDS: FLUTICASONE NASAL 120 SPRAYS/16 GM MDI EACHNARE PRN (21:49)
[2018-10-17] MEDS: OXYMETAZOLINE 30 ML NASAL SPRAY EACHNARE PRN (21:49)
[2018-10-18 06:15] LABS: PLATELET COUNT 229 10^3/uL (150-400)
[2018-10-18] MEDS: IPRATROPIUM/ALBUTEROL 3 ML DEYVIAL IH SCH ×3 (06:15→16:19)
[2018-10-18] MEDS: ALBUTEROL 60 PUFFS/8 GM MDI IH SCH (06:31)
[2018-10-18] MEDS ORDERED: POLYETHYLENE GLYCOL 3350 17 GM PKT PO SCH (09:00)
[2018-10-18] MEDS ORDERED: ENOXAPARIN 40 MG/0.4 ML SYR SC SCH (09:00)
[2018-10-18] MEDS: BUDESONIDE 0.5 MG/2 ML AMPUL.NEB IH SCH (09:30)
[2018-10-18] MEDS: valACYclovir 500 MG TAB PO SCH ×2 (10:00→16:26)
[2018-10-18] MEDS: NICOTINE 14 MG/24 HR PATCH TD SCH (10:00)
[2018-10-18] MEDS: FAMOTIDINE 20 MG/NACL 50 ML IV SCH (10:00)
[2018-10-18] MEDS: OXYMETAZOLINE 30 ML NASAL SPRAY EACHNARE PRN (14:01)
[2018-10-18] MEDS: FLUTICASONE NASAL 120 SPRAYS/16 GM MDI EACHNARE PRN (14:01)
[2018-10-18 15:44] VITALS: BP 147/73
--- NOTE | 2018-10-18 16:22 | PDIAF ---
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 - Orders Services needed: Home Care, Registered Nurse, Certified Curriculum Development Coordinator, Physical Therapy, Occupational Therapy Home Care Face to Face: I certify that this patient was under my care and that I had the required [id number] encounter meeting the encounter requirements on the discharge day. My findings support the fact that the patient is homebound as defined in Home Care Face to Face Continued: CMS Chapter 7 Medicare Benefits Manual 30.1.1 , The condition of the patient is such that there exists a normal inability to leave home and consequently, leaving home would require a considerable and taxing effort. Isolation Type: Airborne Isolation, Contact Isolation Diet Recommendation: no restrictions on diet Additional Instructions: Continue Pulmicort as you were at home Wear oxygen 29/03 - Follow Up Care Current Providers and Referrals: Patient,NotPresent [Unknown] - As per Instructions
[2018-10-18] MEDS ORDERED: PNEUMOC 13-VAL CONJ-DIP CRM/PF 0.5 ML SYR (PREVNAR 13) IM ONE (17:36)
--- NOTE | 2018-10-18 18:13 | PDHOMEO2F ---
Home Oxygen Face to Face Home Orders: I certify that a physician or a nurse practitioner or physician's plumber assistant has had a [id number] encounter with this patient on the date of this order due to the diagnosis listed, which relates to the primary reason the patient requires home oxygen. Alternative treatments have been tried, or considered, and deemed ineffective. It is anticipated that supplemental oxygen will result in improvement with treatment. Home oxygen qualifying diagnosis: COPD SpO2 on room air (%): 81 Frequency of home oxygen needed: continuous Home oxygen liters per minute: 2 Home oxygen delivery device: nasal cannula Concentrator: Yes E-tanks for mobility and back up: Yes If ordering portable O2, is the patient mobile in the home?: Yes I certify that, based on these findings, the home oxygen is medically necessary for this patient for the following length of time. Length of time home oxygen needed: 99 years
--- NOTE | 2018-10-18 18:52 | GDS ---
[f rep st] DISCHARGE SUMMARY DISCHARGE DIAGNOSES: 1. Toxic encephalopathy due to prednisone. 2. Chronic obstructive pulmonary disease exacerbation. 3. Chronic respiratory failure with oxygen noncompliance. 4. Shingles. 5. Tobacco dependence with ongoing tobacco use. 6. Coronary artery disease, status post stent. 7. Hypertension. 8. History of pulmonary embolus and deep venous thrombosis. HISTORY: The patient is an 83-year-old female who recently saw Dr. Andrey Muir as an outpatient, [facility] on steroids and ciprofloxacin for a COPD exacerbation. She also had new onset of a shingles ra sh and started valacyclovir. Her breathing improved nearly to baseline, but she became progressively more weak as well as confused, and her son called 911 and brought her to the emergency room. The pa linsey has a history of getting severe reactions to prednisone, including psychosis and confusion. At the time of presentation, she had already completed a 6-day course of prednisone and antibiotics, an d she seemed to be doing well from a pulmonary standpoint, so these medications were discontinued. S he was continued on inhaled steroids, and she takes Pulmicort at home. She was observed overnight, and her confusion resolved. She was seen by PT/OT and cleared to dischar ge home. Her lungs are clear at discharge. She is hypoxemic with a saturation in the mid 80s on yesi m air. She tells me, however, that that is chronic for her. She only wears her oxygen sometimes whe n she feels like it and did not seem at all alarmed by the saturation in the mid 80s. She was advise d to improve her oxygen compliance. DISCHARGE MEDICATIONS: Please see computerized record for full detailed list. There were no new med ications given at time of hospital discharge. Discontinued medications include oral prednisone and c iprofloxacin. ADDITIONAL DISCHARGE INSTRUCTIONS: 1. Recommend home oxygen 24/7 two liters. 2. Home health, PT, OT, VNS ordered. Patient was seen and examined by me on the day of discharge. /[id number]/MODL
[2018-10-18] MEDS ORDERED: FAMOTIDINE 20 MG TAB PO SCH (21:00)
== END 2018-10-18 06:00 | disposition home health service (06) ==
LOC: EDUNIT# → F1N 12:03
PROVIDERS: ADMIT Internal Medicine; ATTEND Internal Medicine
DX: J96.10 Chronic respiratory failure, unspecified whether with hypoxia or hypercapnia (principal); G92 Toxic encephalopathy; J44.1 Chronic obstructive pulmonary disease with (acute) exacerbation; T38.0X5S Adverse effect of glucocorticoids and synthetic analogues, sequela; B02.9 Zoster without complications; I25.10 Atherosclerotic heart disease of native coronary artery without angina pectoris; I11.0 Hypertensive heart disease with heart failure; I50.30 Unspecified diastolic (congestive) heart failure; F17.200 Nicotine dependence, unspecified, uncomplicated; Z86.711 Personal history of pulmonary embolism; Z95.5 Presence of coronary angioplasty implant and graft
CPT/HCPCS: 71046; 90670; 90686; 93005; 96374; 96375; 96376; 97161; 97165; 97530; 99285; G0008; G0009; G0378; J0360; J1650; J2405; J2550; J2930; J7626